=== PATIENT | female | born 1945 | race Caucasian/White ===

== ENCOUNTER 2023-04-13 08:27 | Emergency (ER) | payer MEDICARE, SELFPAY ==
[2023-04-13] VITALS (11 sets, daily range): BP systolic 138–211; BP diastolic 50–87; PULSE 49–73; RESP 11–16; TEMP 36.6–37.1; O2SAT 98–100
--- NOTE | ~2023-04-13 | CT_ITS ---
EXAMINATION: CTA brain carotid DATE: 04/13/2023 10:31 INDICATION: Left arm and hand numbness. TECHNIQUE: Computed tomographic angiography (CTA) of the head was performed without and with 200 mL O mnipaque-350 intravenous contrast. CTA of the neck was performed with intravenous contrast. Automated exposure control and iterative reconstruction technique were employed. The dose-length product was 2 576.16 mGy-cm. Maximum intensity projection and volume rendered 3D-reconstructions were created by anjel sparrow technologist on a separate workstation. COMPARISON: None. FINDINGS: HEAD CTA: There is no intracranial hemorrhage, acute infarction, or abnormal intracranial mass lesion . There are scattered areas of low attenuation in the cerebral white matter, which is within normal l imits for the patient's age. The ventricles are normal in size. The orbits are normal. There is mild mucosal thickening in the paranasal sinuses. The mastoid air cells are normal. The vertebral arteries are codominant. There is no significant stenosis of basilar artery or the posterior cerebral arterie s. There is no significant stenosis of the intracranial internal carotid arteries or anterior or midd le cerebral arteries. Anterior communicating artery is normal. The posterior communicating arteries a re normal. There is no aneurysm. NECK CTA: Calcified right lung nodules and calcified right hilar lymph nodes are consistent with old granulomatous disease. There is no significant stenosis of the vertebral arteries. There is minimal p laque in the proximal internal carotid arteries. There is 0% stenosis of the proximal right internal carotid artery relative to normal distal artery lumen diameter (NASCET criteria). There is 0% stenos is of the proximal left internal carotid artery relative to normal distal artery lumen diameter. Ther e is severe cervical spondylosis. IMPRESSION: 1. Normal aging brain. 2. No aneurysm or significant intracranial arterial stenosis. 3. 0% stenosis of the proximal internal carotid arteries relative to normal distal artery lumen diame ters (NASCET criteria). Reviewed, dictated and finalized at location A. ION ATTENDANT IMPRESSION: 1. Normal aging brain. 2. No aneurysm or significant intracranial arterial stenosis. 3. 0% stenosis of the proximal internal carotid arteries relative to normal dis jeffry artery lumen diameters (NASCET criteria).
--- NOTE | 2023-04-13 08:35 | ECG_ITS ---
Measurements Intervals [place] Rate: 48 P: 43 ID: [id number] QRS: -6 QRSD: 109 T: 3 QT: 445 QTc: 400 Interpretive Statements SINUS BRADYCARDIA INCOMPLETE RIGHT BUNDLE BRANCH BLOCK [90+ ms QRS DURATION, TERMINAL R IN V1/V2, 40+ ms S IN I/aVL/V4/V5/V6] POOR R WAVE PROGRESSION NO PREVIOUS ECG AVAILABLE FOR COMPARISON Electronically Signed On 04-13-2023 12:43:27 RN WOUND CARE by Bethany Storm M.D.
[2023-04-13 09:10] LABS: Basophils Absolute Auto 0.1 K/mm3 (0.0-0.1); Basophils Percent Auto 1.2 % (0.2-1.2); Eosinophils Absolute Auto 0.2 K/mm3 (0-0.3); Eosinophils Percent Auto 2.3 % (0-4.4); Hematocrit 44.8 % (37.0-47.0); Hemoglobin 14.1 g/dL (12.0-15.0); Immature Granulocyte Absolute 0.01 K/mm3 (0.00-0.031); Immature Granulocyte Percent A 0.2 % (0-0.5); Lymphocytes Percent Auto 24.7 % (18.3-44.2); Mean Corpuscular HGB Conc 31.5 g/dl (32-36); Mean Corpuscular Hemoglobin 27.4 pg (26-34); Monocytes Absolute Auto 0.6 K/mm3 (0.1-0.6); Monocytes Percent Auto 9.9 % (2.6-8.5); Neutrophils Percent Auto 61.7 % (45.5-73.1); Platelet Count Result 309 k/mm3 (150-375); Red Blood Count 5.15 M/mm3 (4.2-5.4); Red Cell Distribution Width 12.7 % (11.5-14.5); White Blood Count 6.5 K/mm3 (4.5-10.0)
[2023-04-13 09:20] LABS: INR 0.9; Prothrombin Time 12.7 Seconds (11.1-14.7)
[2023-04-13 09:21] LABS: Partial Thromboplastin Time 31.6 SECONDS (22.3-36.8)
[2023-04-13 09:38] LABS: Alanine Aminotransferase 14 U/L (6-35); Albumin Level 3.9 g/dL (3.5-5.1); Alkaline Phosphatase 53 U/L (38-126); Anion Gap 6 mmol/L (8-16); Aspartate Amino Transferase 23 U/L (14-36); Bilirubin,Total 0.5 mg/dL (0.2-1.3); Blood Urea Nitrogen 20 mg/dL (7-17); Calcium 9.1 mg/dL (8.4-10.2); Carbon Dioxide 25 mmol/L (22-30); Chloride 111 mmol/L (98-107); Estimated Glomerular Filt Rate > 60; Glucose 107 mg/dL (65-110); Potassium 3.7 mmol/L (3.4-5.0); Sodium 142 mmol/L (137-145)
--- NOTE | 2023-04-13 09:55 | PC.NURSE ---
Chemistry called informing of new orders to add onto specimens collected.
[2023-04-13 10:19] LABS: Troponin I < 0.012 ng/mL (0.000-0.034)
--- NOTE | 2023-04-13 10:35 | ECG_ITS ---
Measurements Intervals [place] Rate: 68 P: 48 AL: 166 QRS: -21 QRSD: 121 T: 74 QT: 438 QTc: 466 Interpretive Statements SINUS RHYTHM LEFTWARD AXIS INTRAVENTRICULAR CONDUCTION DELAY ABNORMAL ECG COMPARED TO ECG 04/13/2023 08:42:01 NO SIGNIFICANT CHANGE Electronically Signed On 04-13-2023 15:38:01 RN SURGICAL PCU by Evgeny Yates M.D.
[2023-04-13] MEDS: ONDANSETRON INJ 4 MG/2 ML VIAL IV PUSH (10:40)
[2023-04-13] MEDS: SODIUM CHLORIDE 0.9% IV 1,000 ML 999 ML IV CONT (10:49)
--- NOTE | 2023-04-13 10:52 | ED.NEUROSD ---
HPI - Neuro Symptoms/Deficit General Chief Complaint: Neuro Symptoms/Deficit Stated Complaint: N L arm and face x 1 day Time Seen by Provider: 04/13/23 09:01 Source: patient Mode of arrival: ambulatory Limitations: no limitations History of Present Illness HPI Narrative: Patient is a 77-year-old female who presents the ED with report of paresthesias. Patient reports having an intermittent paresthesias of her left arm and left hand for the last 1 month. She states the paresthesias became more prominent over the last 2 days. She contacted her primary care doctor today and was referred to the ED for further evaluation. Upon further questioning, patient reports the symptoms have actually been ongoing for the last 1 year. Symptoms occasionally involves her right arm and her lower extremities bilaterally. Patient states she otherwise has not felt well for at least the last 1 month. Reports feeling increasingly fatigued, generalized weakness. Denies any focal weakness. Denies numbness. Denies extremity pain. Denies chest pain, shortness breath, vision changes, headache, nausea, vomiting, urinary complaints. Related Data Allergies Allergy/AdvReac Type Severity Reaction Status Date / Time Cephalosporins Allergy Mild Unknown Verified 04/13/23 08:55 cephalexin Allergy Unknown Unknown Verified 04/13/23 08:55 penicillin G Allergy Unknown UNknown Verified 04/13/23 08:55 clarithromycin AdvReac Unknown Unknown Verified 04/13/23 08:55 lisinopril AdvReac Unknown Unknown Verified 04/13/23 08:55 pravastatin AdvReac Unknown Unknown Verified 04/13/23 08:55 Review of Systems Review of Systems: CONSTITUTIONAL: Denies fever, chills, or sweats. ENT: Denies vision changes. CARDIOVASCULAR: Denies chest pain. RESPIRATORY: Denies dyspnea. GASTROINTESTINAL: Denies abdominal pain, nausea, vomiting MUSCULOSKELETAL: Denies back pain, extremity pain, myalgia. NEUROLOGIC: See HPI. All systems reviewed & are unremarkable except as noted in HPI and below PMFSH Surgical History Surgical History History of hysterectomy with oophorectomy 1998 History of vaginal surgery Transvaginal taping 1998 Family History Family History Father Acute myocardial infarction Diabetes mellitus Heart disease Other Breast cancer Sibling Carcinoma of colon Grandparent Cerebrovascular accident Other Depression Diabetes mellitus Mother Hypertension Other Asthma Social History Social History Smoking status: Never smoker Second hand tobacco smoke exposure: Yes Alcohol intake: never Substance use: never Substance use type: does not use Lack of Transportation: YES Lack of Food: Often True Current Housing: I Have Housing Concerned About Future Housing: No Difficulty Paying Gas/Electric Bills: YES Difficulty Paying for Meds: YES Currently Unemployed: No Education: Associate Degree Difficulty w/ Childcare or Family Care: No Living arrangements: with family Occupation/Education: retired Gender identity (if verbalized by the patient): Female Sexual Orientation (if Verbalized by the Patient): Straight or Heterosexual Spiritual care concerns: No Agree to blood products: Yes Exam Narrative: GENERAL: Elderly, thin, frail, non-toxic, in no acute distress. HEAD: Normocephalic, atraumatic. EYES: PERRL/EOMI, conjunctivae clear bilaterally. No nystagmus. NECK: Supple. No meningeal signs. RESPIRATORY: Airway patent, respirations nonlabored. Clear to auscultation bilaterally, no rales, rhonchi, wheezing. CARDIOVASCULAR: Regular rate and rhythm without murmurs, rubs, or gallops. Peripheral pulses 2+ and equal bilaterally. MUSCULOSKELETAL: Moves all extremities. No gross deformities. No pain or tenderness appreciated throughout extremities. SKIN: W
--- NOTE | 2023-04-13 10:54 | PC.NURSE ---
10:30 - RN called to room. Pt clutching chest stating she doesn't feel well. Pt denies chest pain, c/o h/a after CT. States Even my teeth hurt Naty MARINO informed & came to bedside to assess. EKG taken & reassurance given to pt & family.
[2023-04-13 11:07] LABS: Appearance Urine Clear (Clear); Bacteria Urine None Seen /hpf; Bilirubin Urine Negative (Negative); Blood Urine Trace (Negative); Color Urine Yellow (Yellow); Glucose Urine UA Negative (Negative); Ketones Urine Negative (Negative); Leukocyte Esterase Ur 1+ LEU/UL (Negative); Nitrate Urine Negative (Negative); Non Pathogenic Casts 0-2; Protein Urine Negative (Negative); Squamous Epithelial Cell Urine Few /hpf (Few); Urobilinogen Urine 0.2 mg/dL (<2.0); pH Urine 5.5 (5.0-9.0)
[2023-04-13 11:08] LABS: Add Urine Microscopic? YES; Specific Grav Ur 1.054 (1.001-1.035)
--- NOTE | 2023-04-13 12:21 | PC.NURSE ---
Pt states h/a improved. Resting with reg resp on stretcher
== END 2023-04-13 12:53 | disposition home or self-care (01) ==
PROVIDERS: Emergency Medicine; Emergency Provider Physician Assistant; PCP Family Medicine Adolescent Medicine
DX: R20.2 Paresthesia of skin (principal); R82.998 Other abnormal findings in urine; Z90.710 Acquired absence of both cervix and uterus; R00.1 Bradycardia, unspecified; I45.10 Unspecified right bundle-branch block; I45.9 Conduction disorder, unspecified
CPT/HCPCS: 36415; 70496; 70498; 80053; 81001; 84484; 85025; 85610; 85730; 87086; 87181; 93005; 96361; 96374; 99284; J2405; J7030; Q9967

== ENCOUNTER 2023-09-11 10:29 | Outpatient (CLI) | payer MEDICARE, SELFPAY ==
[2023-09-11 10:59] LABS: Basophils Absolute Auto 0.1 K/mm3 (0.0-0.1); Basophils Percent Auto 1.1 % (0.2-1.2); Eosinophils Absolute Auto 0.2 K/mm3 (0-0.3); Eosinophils Percent Auto 3.8 % (0-4.4); Hematocrit 40.9 % (37.0-47.0); Hemoglobin 13.6 g/dL (12.0-15.0); Immature Granulocyte Absolute 0.01 K/mm3 (0.00-0.031); Immature Granulocyte Percent A 0.2 % (0-0.5); Lymphocytes Percent Auto 28.6 % (18.3-44.2); Mean Corpuscular HGB Conc 33.3 g/dl (32-36); Mean Corpuscular Hemoglobin 28.9 pg (26-34); Mean Platelet Volume 9.4 fl (7.4-10.4); Monocytes Absolute Auto 0.7 K/mm3 (0.1-0.6); Monocytes Percent Auto 11.3 % (2.6-8.5); Neutrophils Absolute Auto 3.5 K/mm3 (1.3-6.7); Platelet Count Result 281 k/mm3 (150-375); Red Cell Distribution Width 12.9 % (11.5-14.5); White Blood Count 6.3 K/mm3 (4.5-10.0)
[2023-09-11 11:13] LABS: Alanine Aminotransferase 15 U/L (6-35); Albumin Level 4.3 g/dL (3.5-5.1); Alkaline Phosphatase 55 U/L (38-126); Anion Gap 8 mmol/L (4-12); Aspartate Amino Transferase 26 U/L (14-36); Bilirubin,Total 0.6 mg/dL (0.2-1.3); Blood Urea Nitrogen 22 mg/dL (7-17); Carbon Dioxide 27 mmol/L (22-30); Chloride 104 mmol/L (98-107); Estimated Glomerular Filt Rate > 60; Glucose 96 mg/dL (65-110); Potassium 4.2 mmol/L (3.4-5.0); Sodium 139 mmol/L (137-145)
[2023-09-11 11:25] LABS: Hemoglobin A1C 5.6 % (<5.7)
[2023-09-14 19:48] LABS: Immunofixation, Serum Normal pattern.
[2023-09-15 01:59] LABS: Red Blood Cell Folate 519 ng/mL RBC (>280)
[2023-09-15 09:13] LABS: Methylmalonic Acid 112 nmol/L (85-423)
[2023-09-16 00:09] LABS: Vitamin B6 35.4 ng/mL (2.1-21.7)
[2023-09-17 14:54] LABS: Vitamin D 1,25 (OH)2 Total 31 pg/mL (18-72); Vitamin D2 1,25 (OH)2 <8 pg/mL; Vitamin D3 1,25 (OH)2 31 pg/mL
== END 2023-09-11 10:30 | disposition home or self-care (01) ==
PROVIDERS: PCP Family Medicine Adolescent Medicine; Visit Provider Psychiatry & Neurology Neurology
DX: M54.50 Low back pain, unspecified (principal); M54.2 Cervicalgia; G56.03 Carpal tunnel syndrome, bilateral upper limbs; G62.9 Polyneuropathy, unspecified; Z13.1 Encounter for screening for diabetes mellitus; E55.9 Vitamin D deficiency, unspecified
CPT/HCPCS: 36415; 80053; 82607; 82652; 82747; 83036; 83921; 84207; 84425; 85025; 86038; 86039; 86334

== ENCOUNTER 2023-09-25 11:30 | Outpatient (CLI) | payer MEDICARE, SELFPAY | END 2023-09-25 11:31 | disposition home or self-care (01) | LOC: ANHLAB 11:34 | PROVIDERS: PCP Family Medicine Adolescent Medicine; Visit Provider Family Medicine Adolescent Medicine | DX: F33.0 Major depressive disorder, recurrent, mild (principal); K14.6 Glossodynia; G62.9 Polyneuropathy, unspecified | CPT/HCPCS: 36415; 84443 ==

== ENCOUNTER 2023-10-06 13:20 | Outpatient (CLI) | payer MEDICARE, SELFPAY ==
--- NOTE | 2023-10-06 14:30 | NEURO_ITS ---
Impression: # Complains of numbness of feet. # Sensory neuropathy. # Needle/EMG exam with decreased motor unit potentials in bilateral EDB. # Clinical correlation recommended. Nerve Conduction Studies Anti Sensory Summary Table Stim Site NR Peak (ms) P-T Amp (?V) Site1 Site2 Delta-P (ms) Dist (cm) Srikanth (m/s) Left Sup Fibular Anti Sensory (Ant Lat Mall) NO RESPONSE 14 cm NR 14 cm Ant Lat Mall 16.0 Right Sup Fibular Anti Sensory (Ant Lat Mall) 14 cm 3.5 37.9 14 cm Ant Lat Mall 3.5 16.0 46 Left Sural Anti Sensory (Lat Mall) NO RESPONSE Calf NR Calf Lat Mall 16.0 Right Sural Anti Sensory (Lat Mall) NO RESPONSE Calf NR Calf Lat Mall 16.0 Motor Summary Table Stim Site NR Onset (ms) O-P Amp (mV) Site1 Site2 Delta-0 (ms) Dist (cm) Srikanth (m/s) Left Peroneal Motor (Vastus Med) Ankle 3.8 1.4 Popit Ankle 7.1 35.0 49 Popit 10.9 1.4 Right Peroneal Motor (Vastus Med) Ankle 3.5 0.8 Popit Ankle 7.6 37.0 49 Popit 11.1 0.7 Left Tibial Motor (Abd Wood Brev) Ankle 4.3 5.4 Knee Ankle 7.9 38.0 48 Knee 12.2 4.9 Right Tibial Motor (Abd Wood Brev) Ankle 3.8 0.5 Knee Ankle 8.5 37.0 44 Knee 12.3 1.4 F Wave Studies NR F-Lat (ms) L-R F-Lat (ms) Left Peroneal (Mrkrs) (EDB) 50.53 1.17 Right Peroneal (Mrkrs) (EDB) 49.36 1.17 Left Tibial (Mrkrs) (Abd Hallucis) 52.05 1.87 Right Tibial (Mrkrs) (Abd Hallucis) 50.18 1.87 EMG Side Muscle Nerve Root Ins Act Fibs Amp Dur Recrt Comment Right AntTibialis Dp Br Fibular L4-5 Nml Nml Nml Nml Nml Right Gastroc Tibial S1-2 Nml Nml Nml Nml Nml Right Fibularis Long Sup Br Fibular L5-S1 Nml Nml Nml Nml Nml Right Flex Dig Long Tibial L5-S2 Nml Nml Nml Nml Nml Right Ext Dig Brev Dp Br Fibular L5, S1 Nml Nml Nml >12ms +1 Right QuadratusFem QuadFemoris L4-5, S1 Nml Nml Nml Nml Nml Left AntTibialis Dp Br Fibular L4-5 Nml Nml Nml Nml Nml Left Gastroc Tibial S1-2 Nml Nml Nml Nml Nml Left Fibularis Long Sup Br Fibular L5-S1 Nml Nml Nml Nml Nml Left Flex Dig Long Tibial L5-S2 Nml Nml Nml Nml Nml Left Ext Dig Brev Dp Br Fibular L5, S1 Nml Nml Nml >12ms +1 Left QuadratusFem QuadFemoris L4-5, S1 Nml Nml Nml Nml Nml MTDD
== END 2023-10-06 13:21 | disposition home or self-care (01) ==
LOC: ANHNEURO 13:21
PROVIDERS: PCP Family Medicine Adolescent Medicine; Visit Provider Psychiatry & Neurology Neurology
DX: G56.03 Carpal tunnel syndrome, bilateral upper limbs (principal); G62.9 Polyneuropathy, unspecified; M54.2 Cervicalgia; M54.50 Low back pain, unspecified
CPT/HCPCS: 95886; 95910

== ENCOUNTER 2023-12-16 16:01 | Outpatient (CLI) | payer MEDICARE, SELFPAY | END 2023-12-16 16:02 | disposition home or self-care (01) | PROVIDERS: PCP Family Medicine Adolescent Medicine; Visit Provider Family Medicine Adolescent Medicine | DX: R30.0 Dysuria (principal) | CPT/HCPCS: 87086 ==

== ENCOUNTER 2024-10-08 22:04 | Emergency (ER) | payer MEDICARE, SELFPAY ==
--- OUTSIDE RECORDS SUMMARY | 2024-10-08 15:45 | XMS_ITS | Encounter Summary ---
Author Organization [facility] Healthcare Address [address] [place] [address] Care Team Providers Care Door Assembler Name Role Phone Efrain Castro MD Primary Care Prov ider Reason for Visit * Reason Comments Sinus Problem Sinus symptoms in fa ce, left ear pain. Shooting pain in quaker. 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 Gender Identity Not on file Sexual Orientation Not on file documented as of this encounter Last Filed Vital Signs Vital Sign Reading Time Taken Comments Blood Pressure 144/85 10/08/2024 2:30 PM CDT Pulse 90 10/08/2024 2:30 PM CDT Temperature 36.4 C (97.6 F) 10/08/2024 2:30 PM CDT Respiratory Rate 20 10/08/2024 2:30 PM CDT Oxygen Saturation 97% 10/08/2024 2:30 PM CDT Inhaled Oxygen Concentration - - Weight 56.2 kg (124 lb) 10/08/2024 2:30 PM CDT Height - - Body Mass Index - - documented in this encounter Patient Instructions * Attachments The following attachments cannot be sent through Care Everywhere. * Sinusitis (Administrative Specialist) (Lao) documented in this encounter Ordered Prescriptions Prescription Sig Dispense Quantity Refills Last Filled Start Date End Date amoxicillin-clavul anate (AUGMENTIN) 875-125 mg per tabletIndications: Acute maxillary sinusitis, recurrence not specified Take 1 tablet by mouth 2 (two) times a day for 7 days 14 tablet 10/08/2024 10/15/2024 doxycycline (VIBRAMYCIN) 100 mg capsule Take 1 tablet/capsu le (100 mg total) by mouth 2 (two) times a day for 7 days 14 tablet/capsule 10/08/2024 10/08/2024 documented in this encounter Progress Notes * Edmundo Rivas NP - 10/08/2024 3:45 PM CDT Images from the original note were not included. Subjective/Objective Patient ID: Rebeka Gomez is a 79 y.o. female. This patient has verbally consented to recording this visit in order to utilize AI technology in generating this note. Chief Complaint Sinus Problem (Sinus symptoms in face, left ear pain. Shooting pain in quaker. 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 /) History of Present Illness Rebeka Gomez is an 79 year old female who presents with worsening sinus and ear symptoms. She has chronic sinus symptoms that have worsened over the past three weeks, accompanied by frequent chills without confirmed fever. She uses Flonase nasal spray once daily. She experiences burning mouth syndrome, and she was previously diagnosed with, which she feels is extending into her nose. She has previously taken amoxicillin without issues, despite a listed allergy to penicillin and cephalosporins. Documented prescription for amoxicillin from May 2024. Patient states she took it without reaction. Review of Systems All other systems reviewed and are negative. Physical Exam HEENT: Ears normal. Left maxillary sinus tenderness. Physical Exam Vitals and nursing note reviewed. Constitutional: General: She is awake. She is not in acute distress. Appearance: Normal appearance. HENT: Head: Normocephalic and atraumatic. Right Ear: Tympanic membrane and ear canal normal. Left Ear: Tympanic membrane and ear canal normal. Nose: Congestion and rhinorrhea present. Right Sinus: No maxillary sinus tenderness or frontal sinus tenderness. Left Sinus: Maxillary sinus tenderness and frontal sinus tenderness present. Mouth/Throat: Lips: [place]. Mouth: Mucous membranes are moist. Tongue: Tongue does not deviate from midline. Pharynx: Uvula midline. No pharyngeal swelling, oropharyngeal exudate, posterior oropharyngeal erythema or uvula swelling. Tonsils: No tonsillar exudate or tonsillar abscesses. Eyes: General: Lids are normal. Pupils: Pupils are equal, round, and reactive to light. Cardiovascular: Rate and Rhythm: Normal rate and regular rhythm. Pulses: Normal pulses. Heart sounds: Normal heart sounds. Pulmonary: Effort: Pulmonary effort is normal. No respiratory distress. Breath sounds: Normal breath sounds. No decreased breath sounds, wheezing, rhonchi or rales. Musculoskeletal: Cervical back: Full passive range of motion without pain, normal range of motion and neck supple. Lymphadenopathy: Cervical: No cervical adenopathy. Skin: General: Skin is warm and dry. Neurological: Mental Status: She is alert and oriented to person, place, and time. Gait: Gait normal. Psychiatric: Behavior: Behavior is cooperative. Vitals: 10/08/24 1430 BP: 144/85 Pulse: 90 Resp: 20 Temp: 36.4 ??C (97.6 ??F) TempSrc: Continuous Temporal Temperature SpO2: 97% Weight: 56.2 kg (124 lb) No results found. No past medical history on file. Current Outpatient Medications: albuterol HFA (PROVENTIL HFA,VENTOLIN HFA,PROAIR HFA) 90 mcg/actuation inhaler, Q4H, Disp: , Rfl: atenoloL (TENORMIN) 50 mg tablet, Take 1.5 tablets (75 mg total) by mouth daily, Disp: , Rfl: clonazePAM (KlonoPIN) 0.5 mg tablet, TAKE ONE-HALF TO ONE TABLET BY MOUTH 30 MINUTES BEFORE BEDTIME. DO NOT COMBINE WITH LORAZEPAM, Disp: , Rfl: escitalopram (LEXAPRO) 10 mg tablet, Take 1 tablet (10 mg total) by mouth daily, Disp: , Rfl: fluticasone propionate (FLONASE) 50 mcg/actuation nasal spray, , Disp: , Rfl: gabapentin (NEURONTIN) 300 mg capsule, Take 1 capsule (300 mg total) by mouth 3 (three) times a day, Disp: , Rfl: LORazepam (ATIVAN) 0.5 mg tablet, Take by mouth 3 (three) times a day as needed, Disp: , Rfl: amoxicillin-clavulanate (AUGMENTIN) 875-125 mg per tablet, Take 1 tablet by mouth 2 (two) times a day for 7 days, Disp: 14 tablet, Rfl: 0 levoFLOXacin (LEVAQUIN) 500 mg tablet, Take 1 tablet (500 mg total) by mouth daily (Patient not taking: Reported on 10/08/2024), Disp: , Rfl: Allergies Allergen Reactions Clarithromycin Unknown Lisinopril Unknown Pravastatin Unknown Cephalosporins Unknown Social History Tobacco Use Smoking status: Not on file Smokeless tobacco: Not on file Substance and Sexual Activity Drug use: Not on file Sexual activity: Not on file Alcohol Use: Not on file No past surgical history on file. Procedures Assessment/Plan 1. Acute maxillary sinusitis, recurrence not specified (Primary) - amoxicillin-clavulanate (AUGMENTIN) 875-125 mg per tablet; Take 1 tablet by mouth 2 (two) times aday for 7 days Dispense: 14 tablet; Refill: 0 Results Assessment & Plan Acute left maxillary sinusitis Chronic sinus symptoms exacerbated over three weeks with left maxillary sinus pain. Differential includes sinus infection. Allergies noted, but amoxicillin tolerated previously. - Prescribed amoxicillin for sinusitis. - Informed of potential adverse reactions to amoxicillin, including gastrointestinal upset, and advised to report any reactions. If you have any reaction stopped taking the medication and call us. You may also take a Benadryl if you have reaction to medicine or call 911 if needed - Advised follow-up with primary doctor if no symptom improvement in a few days. Education Sinus Infection -Take and finish your antibiotic prescription as directed. -You may try: Nasal saline wash, either Neti Pot or Sinus Rinse DAILY or a saline nasal spray 3-4 times a day. Guaifenesin expectorants (Maximum Strength Mucinex, Robitussin, store brand) to loosen secretions. For cough you can use dextromethorphan (Delsym syrup, Robitussin cough capsules or store brand). Dextromethorphan is considered safe for and breast feeding women. You may try decongestants such as Sudafed (purchase at pharmacy) or Sudafed PE for congestion relief. Decongestants can keep you awake at night. Do not use decongestants if you have high blood pressure or if you are . If you have high blood pressure you can take otc Coricidin per package directions -Increase fluid intake: drink 2 liters (2 quarts) of non-caffeinated, non- alcoholic beverages daily, drinking alcohol causes nasal and sinus membranes to swell -Steam inhalation and warm compress to face often help relieve pressure -Avoid allergens and excessively dry heat -Sleep with head of bed elevated to encourage drainage. -Use of a humidifier if environment is heated by dry forced - air system -Avoid smoking, second-hand smoke and air pollutants. -If you are not improving or worsening, or develop facial swelling, in the next 3-5 days you must RETURN to the clinic, go to your PCP, or Urgent Care/ER to be SEEN and reevaluated. No further prescriptions or refills will be given by phone without another evaluation. Disposition Treatment plan including expectations, follow up, and return precautions discussed with patient/parent, verbalizes understanding. Medication dosage, use, and potential adverse reactions discussed with patient/parent. Advised to follow up with PCP if symptoms do not resolve as expected or sooner if condition worsens. Signs/symptoms warranting ER evaluation reviewed. Patient and/or guardian was given an opportunity to ask questions, questions answered. Edmundo Rivas NP This office note has been partially dictated using [employer] software, and as a result portions of the record may have been created with this software. Occasional wrong-word or '[id number]' substitutions may have occurred due to the inherent limitations of voice recognition software. Read the chartcarefully and recognize, using context, where substitutions have occurred. documented in this encounter Plan of Treatment Not on file documented as of this encounter Visit Diagnoses Diagnosis Acute maxillary sinusitis, recurrence not specified- Primary documented in this encounter Discontinued Medications Medication Sig Discontinue Reason Start Date End Da te doxycycline (VIBRAMYCIN) 100 mg capsule Take 1 tablet/capsule (100 mg total) by mouth 2 (two) times a day for 7 days Therapy completed 10/08/2024 10/08/2024 documented as of this encounter Historical Medications * This list may reflect changes made after this encounter. levoFLOXacin (LEVAQUIN) 500 mg tablet Take 1 tablet (500 mg total) by mouth daily 07/14/2024 escitalopram (LEXAPRO) 10 mg tablet Take 1 tablet (10 mg total) by mouth daily 06/28/2024 albuterol HFA (PROVENTIL HFA,VENTOLIN HFA,PROAIR HFA) 90 mcg/actuation inhaler Q4H 07/17/2022 added in this encounter Care Teams Door Assembler Relationship Specialty Start Date End Date Efrain Castro MD [address] [place] [address] PCP - General Family Medicine 05/06/21 documented as of this encounter
--- OUTSIDE RECORDS SUMMARY | 2024-10-08 15:45 | XMS_ITS | Encounter Summary ---
Author Organization [facility] Healthcare Address [address] [place] [address] Care Team Providers Care Change Control Analyst Name Role Phone Efrain Castro MD Primary Care Prov ider Reason for Visit * Reason Comments Sinus Problem Sinus symptoms in fa ce, left ear pain. Shooting pain in mandaeism. 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 * Sinusitis (Manager Continuous Improvement) (Kazakh) documented in this encounter Ordered Prescriptions Prescription [...] face, left ear pain. Shooting pain in mandaeism. Symptoms x 3 weeks /Burning mouth syndrome- [...] and frontal sinus tenderness present. Mouth/Throat: Lips: [place]. Mouth: Mucous membranes are moist. Tongue: Tongue [...] office note has been partially dictated using [employer] software, and as a result portions of the record may have been created with this software. Occasional wrong-word or '[id number]' substitutions may have occurred due to the [...] 07/17/2022 added in this encounter Care Teams Change Control Analyst Relationship Specialty Start Date End Date Efrain Castro MD [address] [place] [address] PCP - General Family Medicine 05/06/21 documented as of this encounter
--- OUTSIDE RECORDS SUMMARY | 2024-10-08 22:07 | XMS_ITS | Clinical Summary ---
Author Organization [facility] Address [address] [place] [id number] Care Team Providers Care Torch Burner Name Role Phone Efrain Castro MD Primary Care Prov ider Allergies Active Allergy Reactions Criticality Noted Date Comments Cephalosporins Unknown Low 04/13/2023 Clarithromycin Unknown 04/13/2023 Lisinopril Unknown 04/13/2023 Pravastatin Unknown 04/13/2023 Medications atenoloL (TENORMIN) 50 mg tablet Take 1.5 tablets (75 mg total) by mouth daily 5 Active clonazePAM (KlonoPIN) 0.5 mg tablet TAKE ONE-HALF TO ONE TABLET BY MOUTH 30 MINUTES BEFORE BEDTIME. DO NOT COMBINE WITH LORAZEPAM 5 Active gabapentin (NEURONTIN) 300 mg capsule Take 1 capsule (300 mg total) by mouth 3 (three) times a day 5 Active LORazepam (ATIVAN) 0.5 mg tablet Take by mouth 3 (three) times a day as needed 5 Active fluticasone propionate (FLONASE) 50 mcg/actuation nasal spray 5 Active albuterol HFA (PROVENTIL HFA,VENTOLIN HFA,PROAIR HFA) 90 mcg/actuation inhaler Q4H 3 Active escitalopram (LEXAPRO) 10 mg tablet Take 1 tablet (10 mg total) by mouth daily 5 Active levoFLOXacin (LEVAQUIN) 500 mg tablet Take 1 tablet (500 mg total) by mouth daily 5 Active amoxicillin-cla vulanate (AUGMENTIN) 875-125 mg per tabletIndicatio ns:Acute maxillary sinusitis, recurrence not specified Take 1 tablet by mouth 2 (two) times a day for 7 days 14 tablet 5 10/16/19 25 Active doxycycline (VIBRAMYCIN) 100 mg capsule Take 1 tablet/capsul e (100 mg total) by mouth 2 (two) times a day for 7 days 14 tablet/capsu le 5 10/09/19 25 Discontinu ed(Therapy completed) Active Problems Problem Noted Date Diagnosed Date Abnormal weight loss 10/08/2024 Anxiety disorder, unspecified 10/08/2024 Arm paresthesia, left 10/08/2024 Hand paresthesia 10/08/2024 Essential (primary) hypertension 10/08/2024 Gastro-esophageal reflux disease without esophag itis 10/08/2024 Major depressive disorder, recurrent, mild 10/08 Mild intermittent asthma, uncomplicated 10/09/19 Muscle cramp, nocturnal 10/08/2024 Neuralgia 10/08/2024 Other fatigue 10/08/2024 Palpitations 10/08/2024 Pure hypercholesterolemia, unspecified Encounters Date Type Department Care Team Description 10/08/2024 3:45 PM CDT Office Visit [facility] at [address] [phone] Edmundo Rivas NP Acute maxillary sinusitis, recurrence not specified (Primary Dx) from Last 3 Months Immunizations Immunization Administration Dates Next Due Pneumococcal Polysaccharide PPV23 04/02/2012 Social History Tobacco Use Types Packs/Day Years Used Date Smoking Tobacco: Never Assessed Comments Unknown Sex and Gender Information Value Date Recorded Sex Assigned at Not on file 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 Gender Identity Not on file Sexual Orientation Not on file Obstetrics History Last Filed Vital Signs Vital Sign Reading [...] - - Body Mass Index - - Plan of Treatment Health Maintenance Due Date Last Done Comments Depression Screening 1945 Fall Risk Assessment 1945 Osteoporosis Screening-Bone Density Scan 1945 DTaP/Tdap/Td Vaccine (1 - Tdap) 04/28/1954 Hepatitis B Screening 04/28/1961 Zoster Vaccine (1 of 2) 04/28/1993 Well Visit 65+ 04/28/2008 Pneumococcal vaccine 65+ (2 of 2 - PCV) 04/02/2013 0 04/02/2012 Covid-19 Vaccine (3 - 2023- season) 2023, 11/27/2020 Influenza Vaccine (#1) [address] [place] [address] [employer] P[employer] P[employer] Care Teams Torch Burner Relationship Specialty Start Date End Date Efrain Castro MD [address] [place] [address] PCP - General Family Medicine 05/06/21
[2024-10-08 22:09] VITALS: BP 148/53; PULSE 69; RESP 18; TEMP 36.3; O2SAT 100
[2024-10-08 23:06] VITALS: BP 151/63; PULSE 69; RESP 17; O2SAT 100
--- OUTSIDE RECORDS SUMMARY | 2024-10-08 23:22 | XMS_ITS | Clinical Summary ---
Author Organization [facility] Address [address] [place] [id number] Care Team Providers Care Director Of Cardiology Name Role Phone Efrain Castro MD Primary [...] Description 10/08/2024 3:45 PM CDT Office Visit [facility] at [address] [phone] Edmundo Rivas NP Acute maxillary sinusitis, recurrence not specified (Primary Dx) from Last 3 Months Immunizations Immunization Administration Dates Next Due Pneumococcal Polysaccharide PPV23 04/02/2012 Social History Tobacco Use Types Packs/Day Years Used Date Smoking Tobacco: Never Assessed Comments Unknown Sex and Gender Information Value Date Recorded Sex Assigned at Not on file 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
--- NOTE | 2024-10-08 23:46 | ED_ITS ---
HPI - Nausea/Vomiting/Diarrhea General Chief complaint: Nausea/Vomiting/Diarrhea Stated complaint: N/V/D-on Augmentin-has sinus infection Time Seen by Provider: 10/08/24 23:00 History of Present Illness HPI Narrative: Patient is an 79-year-old female who presents to the ER with complaints nausea, vomiting, and upset stomach. She reports she has taken Augmentin in the past and had similar symptoms. Patient reports she went to urgent care earlier today because she was having sinus pain and sore throat. She reports the provider there put her on Augmentin. Patient reports she took her 1st pill this evening and had GI symptoms afterwards. She endorses diarrhea, vomiting, and bilateral upper abdominal pain. Patient endorses a history of neuropathy, high blood pressure, and asthma. Related Data Home Medications ?Medication ?Instructions ?Recorded ?Confirmed ?Last Taken ?Type THC/CBD cream topical 08/23/23 05/25/24 Un known History Allergies Allergy/AdvReac Type Severity Reaction Status Date / Time Cephalosporins Allergy Mild Unknown Verified 10/08/24 22:13 cephalexin Allergy Unknown Unknown Verified 10/08/24 22:13 penicillin G Allergy Unknown UNknown Verified 10/08/24 22:13 clarithromycin AdvReac Unknown Unknown Verified 10/08/24 22:13 lisinopril AdvReac Unknown Unknown Verified 10/08/24 22:13 pravastatin AdvReac Unknown Unknown Verified 10/08/24 22:13 Review of Systems 2 Review of Systems: All systems reviewed & are unremarkable except as noted in HPI and below PMFSH Past Medical History Medical History Fibromyalgia Lower back pain Neck pain Bilateral carpal tunnel syndrome Peripheral neuropathy Surgical History Surgical History History of vaginal surgery Transvaginal taping 1998 History of hysterectomy with oophorectomy 1998 Family History Family History Father Acute myocardial infarction Diabetes mellitus Heart disease Other Breast cancer Sibling Carcinoma of colon Grandparent Cerebrovascular accident Other Depression Diabetes mellitus Mother Hypertension Other Asthma Social History Social History Smoking status: Never smoker Second hand tobacco smoke exposure: Yes Alcohol intake: never Substance use: never Substance use type: does not use Do You Feel Safe in your Home?: Yes Lack of Transportation: YES Lack of Food: Sometimes True Current Housing: I Have Housing Concerned About Future Housing: No Difficulty Paying Gas/Electric Bills: No Difficulty Paying for Meds: No Currently Unemployed: No Education: High School Diploma/GED Difficulty w/ Childcare or Family Care: No Living arrangements: with family Occupation/Education: retired Gender identity (if verbalized by the patient): Female Sexual Orientation (if Verbalized by the Patient): Straight or Heterosexual Spiritual care concerns: No Agree to blood products: Yes Exam 2 Narrative: GENERAL: Well appearing, well-nourished, non-toxic, in no acute distress. HEAD: Normocephalic, atraumatic. NECK: Supple. No adenopathy, no masses. RESPIRATORY: Airway patent, respirations nonlabored. Clear to auscultation bilaterally, no rales, rhonchi, wheezing. CARDIOVASCULAR: Regular rate and rhythm without murmurs, rubs, or gallops. Peripheral pulses 2+ and equal bilaterally. ABDOMINAL: Soft, nontender, nondistended, no hepatosplenomegaly. Normoactive BS. MUSCULOSKELETAL: Moves all extremities. Strength/ROM intact without gross deformities. SKIN: Warm, dry, normal color. No rashes. NEURO: A&O X3. Speech clear. Cranial nerves II-XII intact. No ataxic movements. PSYCHIATRIC: Appropriate mood and affect. Normal interaction. Course Vital Signs Vital signs: Vital Signs Temperature 36.3 C L 10/08/24 22:09 Pulse Rate 69 10/08/24 22:09 Respiratory Rate 18 10/08/24 22:09 Blood Pressure 148/53 H 10/08/24 22:09 Pulse Oximetry 100 10/08/24 22:09 Oxygen Delivery Room Air 10/08/24 22:09 Temperature 36.3 C L 10/08/24 22:09 Pulse Rate 69 10/09/24 00:53 Respiratory Rate 15 10/09/24 00:53 Blood Pressure 151/63 H 10/09/24 00:53 Pulse Oximetry 100 10/09/24 00:53 Oxygen Delivery Room Air 10/08/24 22:09 MDM - Nausea/Vomiting/Diarrhea MDM Narrative Medical decision making narrative: Patient is an 79-year-old female who presents to the ER with complaints nausea, vomiting, and upset stomach. She reports she has taken Augmentin in the past and had similar symptoms. Patient reports she went to urgent care earlier today because she was having sinus pain and sore throat. She reports the provider there put her on Augmentin. Patient reports she took her 1st pill this evening and had GI symptoms afterwards. She endorses diarrhea, vomiting, and bilateral upper abdominal pain. Patient endorses a history of neuropathy, high blood pressure, and asthma. Labs Ordered: CBC, CMP, strep Imaging Ordered: None necessary Medications Ordered: Prednisone 40 mg p.o. Results: Patient's CMP and CBC results were within normal limits. Her strep swab was negative. Diagnosis: Viral sinus infection, mild dehydration, drug-induced nausea & vomiting Differential Diagnosis Differential diagnosis: Likely gastroenteritis, drug-induced nausea and vomiting, dehydration and other (Viral upper respiratory infection, viral sinus infection) Lab Data Attestation: I reviewed the patient's lab results. 10/09/24 00:05 10/09/24 00:06 Labs: Lab Results 10/09/24 10/09/24 10/09/24 Range/Units 00:05 00:06 00:23 WBC 16.1 H (4.5-10.0) K/mm3 RBC 4.91 (4.2-5.4) M/mm3 Hgb 13.4 (12.0-15.0) g/dL Hct 41.4 (37.0-47.0) % MCV 84.3 (80-100) fl MCH 27.3 (26-34) pg MCHC 32.4 (32-36) g/dl RDW 12.6 (11.5-14.5) % Plt Count 235 (150-375) k/mm3 MPV 9.5 (7.4-10.4) fl Immature Gran % (Auto) Not Reportable Neut % (Auto) Not Reportable Lymph % (Auto) Not Reportable [place] % (Auto) Not Reportable Eos % (Auto) Not Reportable Baso % (Auto) Not Reportable Lymph # (Auto) Not Reportable [place] # (Auto) Not Reportable Eos # (Auto) Not Reportable Baso # (Auto) Not Reportable Abs Immat Gran (auto) Not Reportable Absolute Neuts (auto) Not Reportable Absolute Nucleated RBC Not Reportable Total Counted 100 Neutrophils % (Manual) 77 H (46-73) % Band Neutrophils % 6 (0-6) % Lymphocytes % (Manual) 4.0 L (18-44) % Monocytes % (Manual) 13 H (3-9) % Nucleated RBC % Not Reportable Abs Neuts (Manual) 13.36 H (1.3-6.7) K/mm3 Abs Lymphs (Manual) 0.64 L (1.1-4.5) K/mm3 Abs Monocytes (Manual) 2.09 H (0.1-0.90) K/mm3 Atypical Lymphocytes Present Smudge Cells Present Platelet Estimate Adequate (Adequate) Clumped Platelets Present Ovalocytes Occasional Schistocytes None seen Sodium 139 (137-145) mmol/L Potassium 3.7 (3.4-5.0) mmol/L Chloride 105 (98-107) mmol/L Carbon Dioxide 29 (22-30) mmol/L Anion Gap 5 (4-12) mmol/L BUN 21 H (7-17) mg/dL Creatinine 0.82 (0.7-1.0) mg/dL Estim Creat Clear Calc 34 ml/min Estimated GFR > 60 (59 - ) Glucose 117 H (65-110) mg/dL Calcium 8.8 (8.4-10.2) mg/dL Total Bilirubin 0.6 (0.2-1.3) mg/dL AST 35 (14-36) U/L ALT 16 (6-35) U/L Alkaline Phosphatase 60 (38-126) U/L Total Protein 7.5 (6.3-8.2) g/dL Albumin 4.2 (3.5-5.1) g/dL Group A Strep (PCR) Not detected (Negative) Discharge Plan Discharge Clinical Impression: Dehydration, mild, Drug-induced nausea and vomiting, Acute viral sinusitis Patient Disposition: Home Condition: Stable Instructions: Antibiotic Form, Dehydration (ED), Sinusitis (ED), Acute Nausea and Vomiting (ED) Additional Instructions: Please return to the ER with any worsening symptoms. Follow-up with primary care provider as soon as possible. Take all medications as prescribed, including regularly scheduled medications. You may take prednisone and Flonase to help treat your sinusitis. Please remember to drink lots of water upon discharge. Patient Language: Syriac Prescriptions: New methylprednisolone [Medrol (Eitan)] 4 mg tablets,dose pack See Rx Instructions PO .COMPLEX Qty: 21 0RF Rx Instructions: for 6 days fluticasone propionate [Flonase Allergy Relief] 50 mcg/actuation spray,suspension 2 spray intranasal DAILY Qty: 16 0RF Rx Instructions: administer into each nostril ondansetron 4 mg tablet,disintegrating 4 mg PO Q8H Qty: 14 0RF No Action escitalopram oxalate 10 mg tablet 10 mg PO DAILY Qty: 30 5RF gabapentin 300 mg capsule 300 mg PO BID Qty: 90 5RF THC/CBD cream topical albuterol sulfate 90 mcg/actuation HFA aerosol inhaler 2 inh inhalation Q4H PRN (Reason: shortness of breath or wheezing) Qty: 6.7 3RF azelastine 0.05 % drops See Rx Instructions .ROUTE .COMPLEX Qty: 18 0RF Dose Instruction: INSTILL 1 DROP IN EACH EYE TWICE DAILY Rx Instructions: INSTILL 1 DROP IN EACH EYE TWICE DAILY fluticasone propionate 50 mcg/actuation spray,suspension 2 spray intranasal DAILY Qty: 16 5RF Rx Instructions: administer into each nostril clobetasol 0.05 % cream 1 applic topical BID Qty: 60 1RF atenolol 50 mg tablet 75 mg PO DAILY Qty: 135 1RF lorazepam 0.5 mg tablet 0.5 mg PO TID PRN (Reason: anxiety) Qty: 90 4RF Follow-up/Referrals: Efrain Castro MD [Primary Care Provider, Family Practice] Time of Disposition: 01:10
[2024-10-08] MEDS: SODIUM CHLORIDE 0.9% IV 1,000 ML 999 ML IV CONT (23:59)
[2024-10-09 00:03] VITALS: BP 151/63; PULSE 70; RESP 18; O2SAT 96
[2024-10-09 00:20] LABS: Hematocrit 41.4 % (37.0-47.0); Hemoglobin 13.4 g/dL (12.0-15.0); Mean Corpuscular HGB Conc 32.4 g/dl (32-36); Mean Corpuscular Hemoglobin 27.3 pg (26-34); Mean Corpuscular Volume 84.3 fl (80-100); Platelet Count Result 235 k/mm3 (150-375); Red Blood Count 4.91 M/mm3 (4.2-5.4); White Blood Count 16.1 K/mm3 (4.5-10.0)
[2024-10-09 00:27] LABS: Alanine Aminotransferase 16 U/L (6-35); Albumin Level 4.2 g/dL (3.5-5.1); Alkaline Phosphatase 60 U/L (38-126); Anion Gap 5 mmol/L (4-12); Aspartate Amino Transferase 35 U/L (14-36); Bilirubin,Total 0.6 mg/dL (0.2-1.3); Blood Urea Nitrogen 21 mg/dL (7-17); Calcium 8.8 mg/dL (8.4-10.2); Carbon Dioxide 29 mmol/L (22-30); Chloride 105 mmol/L (98-107); Estimated CRCL calculation 34 ml/min; Estimated Glomerular Filt Rate > 60; Glucose 117 mg/dL (65-110); Potassium 3.7 mmol/L (3.4-5.0); Sodium 139 mmol/L (137-145); Total Protein 7.5 g/dL (6.3-8.2)
[2024-10-09 00:52] LABS: Strep Group A RT-PCR NOT DETECTED (Negative)
[2024-10-09 00:53] VITALS: BP 151/63; PULSE 69; RESP 15; O2SAT 100
[2024-10-09 00:53] LABS: Band Neutrophils Percent 6 % (0-6); Lymphocytes Absolute Manual 0.64 K/mm3 (1.1-4.5); Lymphocytes Percent Manual 4.0 % (18-44); Monocytes Absolute Manual 2.09 K/mm3 (0.1-0.90); Monocytes Percent Manual 13 % (3-9); Neutrophils Absolute Manual 13.36 K/mm3 (1.3-6.7); Neutrophils Percent Manual 77 % (46-73); Total Cells Counted 100
[2024-10-09 00:54] LABS: Ovalocytes Occasional; Schistocytes None Seen
[2024-10-09 00:55] LABS: Smudge Cells PRESENT
[2024-10-09] MEDS: ONDANSETRON HCL ODT 4 MG TABLET PO (01:32)
[2024-10-09 01:39] VITALS: BP 168/95; PULSE 73; RESP 17; O2SAT 100
[2024-10-09 01:41] VITALS: BP 168/95; PULSE 73; RESP 17; O2SAT 100
== END 2024-10-09 01:43 | disposition home or self-care (01) ==
PROVIDERS: Emergency Provider Registered Nurse; PCP Family Medicine Adolescent Medicine
DX: R11.2 Nausea with vomiting, unspecified (principal); T36.0X5A Adverse effect of penicillins, initial encounter; J01.90 Acute sinusitis, unspecified; B97.89 Other viral agents as the cause of diseases classified elsewhere; E86.0 Dehydration; M79.7 Fibromyalgia; G62.9 Polyneuropathy, unspecified; Z90.710 Acquired absence of both cervix and uterus; Z77.22 Contact with and (suspected) exposure to environmental tobacco smoke (acute) (chronic)
CPT/HCPCS: 36415; 80053; 85025; 87651; 96360; 99283; A9270; J7030; J7512

== ENCOUNTER 2024-10-11 17:00 | Emergency (ER) | payer MEDICARE, SELFPAY ==
[2024-10-11] VITALS (13 sets, daily range): BP systolic 177–224; BP diastolic 61–80; PULSE 48–63; RESP 10–16; TEMP 36.4; O2SAT 98–100
--- NOTE | ~2024-10-11 | CT_ITS ---
EXAMINATION: CT brain wo con DATE: 10/11/2024 20:07 INDICATION: Headache TECHNIQUE: Computed tomography (CT) of the head was performed without intravenous contrast. Sagittal and coronal reconstructions were performed. The mA was adjusted according to patient size. Iterative reconstruction technique was employed. The dose-length product was 605.33 mGy-cm. COMPARISON: head CT dated 04/13/2023 FINDINGS: No acute intracranial hemorrhage, acute infarction or abnormal extra axial fluid collection. There is mild scattered white matter hypoattenuation consistent with chronic small vessel ischemic disease. Symmetric prominence of the sulci consistent with mild age-appropriate diffuse cerebral volume loss. Ventricles are normal and symmetric. No mass/mass effect. The orbits, paranasal sinuses and mastoid air cells are normal. IMPRESSION: 1. Normal aging brain. No acute intracranial process. Reviewed, dictated and finalized at location A.
--- NOTE | ~2024-10-11 | XR_ITS ---
EXAMINATION: XR chest 1V portable DATE: 10/11/2024 20:04 INDICATION: Hypertension with dizziness TECHNIQUE: frontal view of the chest was obtained. COMPARISON: Chest radiograph dated 08/09/2009 FINDINGS: Calcified nodule at the lateral right midlung zone and calcified bilateral hilar lymph nodes consistent with old granulomatous disease. No other airspace opacities, pulmonary edema, pleural effusion or pneumothorax. The cardiomediastinal silhouette is normal. IMPRESSION: 1. No acute cardiopulmonary disease. Reviewed, dictated and finalized at location A.
--- OUTSIDE RECORDS SUMMARY | 2024-10-11 17:07 | XMS_ITS | Clinical Summary ---
Author Organization [facility] Address [address] [place] [phone] Care Team Providers Care Herpetology Teacher Name Role Phone Efrain Castro MD Primary [...] Description 10/08/2024 3:45 PM CDT Office Visit [facility] at [address] [phone] Edmundo Rivas NP Acute maxillary sinusitis, recurrence not specified (Primary Dx) from Last 3 Months Immunizations Immunization Administration Dates Next Due Pneumococcal Polysaccharide PPV23 04/02/2012 Social History Tobacco Use Types Packs/Day Years Used Date Smoking Tobacco: Never Assessed Comments Unknown Sex and Gender Information Value Date Recorded Sex Assigned at Not on file 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
--- NOTE | 2024-10-11 19:01 | ECG_ITS ---
Test Date: 2024-10-11 19:34:23 Measurements Intervals [place] Rate: 46 P: 36 GA: 148 QRS: -15 QRSD: 131 T: 25 QT: 490 QTc: 431 Interpretive Statements SINUS BRADYCARDIA INTRAVENTRICULAR CONDUCTION DELAY LEFT VENTRICULAR HYPERTROPHY AND ST-T CHANGE HIGH LATERAL INFARCT, AGE INDETERMINATE BASELINE ARTIFACT- I, II, III, AVR ABNORMAL ECG No previous ECG available for comparison Electronically Signed On 10-11-2024 21:27:06 CDT by Brian Amos D.O.
[2024-10-11 19:37] LABS: Hematocrit 38.7 % (37.0-47.0); Hemoglobin 12.6 g/dL (12.0-15.0); Immature Granulocyte Percent A 0.4 % (0-0.5); Lymphocytes Absolute Auto 1.88 K/mm3 (0.9-3.2); Mean Corpuscular HGB Conc 32.6 g/dl (32-36); Mean Corpuscular Hemoglobin 27.5 pg (26-34); Mean Corpuscular Volume 84.5 fl (80-100); Nucleated Red Blood Cells Absolute Auto 0.000 K/mm3 (0.0-0.012); Nucleated Red Blood Cells Perc 0.0 % (0.0-0.2); Platelet Count Result 280 k/mm3 (150-375); Red Blood Count 4.58 M/mm3 (4.2-5.4); White Blood Count 11.5 K/mm3 (4.5-10.0)
--- NOTE | 2024-10-11 19:37 | ED.GENADULT ---
HPI - General Adult General Chief complaint: Recheck/Abnormal Lab/Rx Stated complaint: htn Time Seen by Provider: 10/11/24 17:56 History of Present Illness HPI narrative: Patient is an 79-year-old female who presents to the emergency department this evening complaining of an elevated blood pressure. Patient states that she does take blood pressure medications, atenolol and was watching TV when she started to have a headache. This prompted her to take her blood pressure and she noted that it was oversewn 200 systolic. Denies any additional symptoms or concerns including any chest pain or shortness of breath, any nausea vomiting or diarrhea. Denies any abdominal pain. No additional symptoms or concerns at this time. Related Data Home Medications ?Medication ?Instructions ?Recorded ?Confirmed ?Last Taken ?Type THC/CBD cream topical 08/23/23 05/25/24 Unknown History Allergies Allergy/AdvReac Type Severity Reaction Status Date / Time Cephalosporins Allergy Mild Unknown Verified 10/11/24 17:56 cephalexin Allergy Unknown Unknown Verified 10/11/24 17:56 penicillin G Allergy Unknown UNknown Verified 10/11/24 17:56 amoxicillin (From Augmentin) AdvReac Intermediate Nausea and Verified 10/11/24 17:56 Vomiting clavulanic acid (From AdvReac Intermediate Nausea and Verified 10/11/24 17:56 Augmentin) Vomiting clarithromycin AdvReac Unknown Unknown Verified 10/11/24 17:56 lisinopril AdvReac Unknown Unknown Verified 10/11/24 17:56 pravastatin AdvReac Unknown Unknown Verified 10/11/24 17:56 Review of Systems Review of Systems: All systems are reviewed and are negative unless stated otherwise in the HPI. [facility] Past Medical History Medical History Fibromyalgia Lower back pain Neck pain Bilateral carpal tunnel syndrome Peripheral neuropathy Surgical History Surgical History History of vaginal surgery Transvaginal taping 1998 History of hysterectomy with oophorectomy 1998 Family History Family History Father Acute myocardial infarction Diabetes mellitus Heart disease Other Breast cancer Sibling Carcinoma of colon Grandparent Cerebrovascular accident Other Depression Diabetes mellitus Mother Hypertension Other Asthma Social History Social History Smoking status: Never smoker Second hand tobacco smoke exposure: Yes Alcohol intake: never Substance use: never Substance use type: does not use Do You Feel Safe in your Home?: Yes Lack of Transportation: YES Lack of Food: Sometimes True Current Housing: I Have Housing Concerned About Future Housing: No Difficulty Paying Gas/Electric Bills: No Difficulty Paying for Meds: No Currently Unemployed: No Education: High School Diploma/GED Difficulty w/ Childcare or Family Care: No Living arrangements: with family Occupation/Education: retired Gender identity (if verbalized by the patient): Female Sexual Orientation (if Verbalized by the Patient): Straight or Heterosexual Spiritual care concerns: No Agree to blood products: Yes Exam Narrative: General: Alert, awake, afebrile, in no acute distress. HEENT: PERRL, no rhinorrhea, no post nasal drip, oropharynx clear. Neck: Trachea midline, no JVD, no lymphadenopathy. Cardiovascular: Regular rate and rhythm, no murmurs, rubs or gallops, no peripheral edema. Respiratory: Clear to auscultation bilaterally, no tachypnea, no wheezing, no rhonchi, no rubs, no respiratory distress. Abdomen: Soft, nontender, nondistended, no rebound, no guarding, no peritoneal signs. Musculoskeletal: No joint swelling or deformity, normal muscle tone. Skin: No rashes or petechia, no signs of infection. Psychiatric: Alert and oriented, normal behavior and judgment for situation. Neurological: Alert and oriented to person, place, and time. Follows all commands. No focal deficits, speech is clear and fluent. Course Vital Signs Vital signs: Vital Signs Temperature 97.6 F 10/11/24 17:01 Pulse Rate 63 10/11/24 17:01 Respiratory Rate 16 10/11/24 17:01 Blood Pressure 224/62 H 10/11/24 17:01 Pulse Oximetry 99 10/11/24 17:01 Temperature 97.6 F 10/11/24 17:01 Pulse Rate 49 L 10/11/24 21:03 Respiratory Rate 14 10/11/24 21:03 Blood Pressure 214/72 H 10/11/24 21:03 Pulse Oximetry 99 10/11/24 21:03 Medical Decision Making MDM Narrative Medical decision making narrative: The patient was evaluated by myself in the emergency department. History is obtained from patient who is an independent historian and physical exam was performed. External medical records were reviewed at this time. IV was established and pertinent tests were ordered. Patient was administered 10 mg of IV hydralazine for her hypertension. Patient presented with a blood pressure her of greater than 200 systolic. Repeat blood pressure after 10 of hydralazine is 177/61 mmHg. EKG was obtained which revealed sinus bradycardia rate of 46 beats per minute. No ST changes, T wave inversions or evidence of acute ischemia. EKG was independently interpreted by me and is currently pending official cardiology read. per chart review, patient was noted to be bradycardic in the 40s when looking at her past EKGs from March 2023. Patient is also on a beta-lisa. Laboratory results obtained revealing no acute process. Imaging studies obtained included CXR and CT brain without IV contrast which was independently interpreted by me revealing no acute process, which is pending final radiology interpretation. Differential diagnosis considerations include hypertensive urgency versus emergency, dehydration electrolyte derangements, acute viral syndrome. Comorbidities impacting this visit include history of hypertension. I have evaluated and discussed social determinants of health with the patient that could potentially impact subsequent diagnosis and treatment plans. On repeat assessment of the patient, reevaluation revealed that the patient is doing well and is in no acute distress. Patient symptoms have improved since she arrived to our emergency department. Repeat vital signs were all reviewed and noted to be stable. Differential diagnosis and treatment plan were discussed with the patient at bedside. Patient agrees with discussion and after shared medical decision making agrees with discharge. All questions were answered to the patient's satisfaction. Patient will follow up with her PCP in 3-5 days. Patient was provided with strict return precautions and instructed to return to the emergency department if any new or worsening symptoms develop. The patient was discharged in stable condition. Vital Signs Vital Signs: Vital Signs Temperature 97.6 F 10/11/24 17:01 Pulse Rate 63 10/11/24 17:01 Respiratory Rate 16 10/11/24 17:01 Blood Pressure 224/62 H 10/11/24 17:01 Pulse Oximetry 99 10/11/24 17:01 Temperature 97.6 F 10/11/24 17:01 Pulse Rate 49 L 10/11/24 21:03 Respiratory Rate 14 10/11/24 21:03 Blood Pressure 214/72 H 10/11/24 21:03 Pulse Oximetry 99 10/11/24 21:03 Lab Data 10/11/24 19:29 10/11/24 19:29 Labs: Lab Results 10/11/24 Range/Units 19:29 WBC 11.5 H (4.5-10.0) K/mm3 RBC 4.58 (4.2-5.4) M/mm3 Hgb 12.6 (12.0-15.0) g/dL Hct 38.7 (37.0-47.0) % MCV 84.5 (80-100) fl MCH 27.5 (26-34) pg MCHC 32.6 (32-36) g/dl RDW 12.6 (11.5-14.5) % Plt Count 280 (150-375) k/mm3 MPV 9.5 (7.4-10.4) fl Immature Gran % (Auto) 0.4 (0-0.5) % Neut % (Auto) 72.3 (45.5-73.1) % Lymph % (Auto) 16.3 L (18.3-44.2) % [place] % (Auto) 10.4 H (2.6-8.5) % Eos % (Auto) 0.3 (0-4.4) % Baso % (Auto) 0.3 (0.2-1.2) % Lymph # (Auto) 1.88 (0.9-3.2) K/mm3 [place] # (Auto) 1.2 H (0.1-0.6) K/mm3 Eos # (Auto) 0.0 (0-0.3) K/mm3 Baso # (Auto) 0.0 (0.0-0.1) K/mm3 Abs Immat Gran (auto) 0.05 H (0.00-0.031) K/mm3 Absolute Neuts (auto) 8.3 H (1.3-6.7) K/mm3 Absolute Nucleated RBC 0.000 (0.0-0.012) K/mm3 Nucleated RBC % 0.0 (0.0-0.2) % Sodium 140 (137-145) mmol/L Potassium 3.7 (3.4-5.0) mmol/L Chloride 105 (98-107) mmol/L Carbon Dioxide 29 (22-30) mmol/L Anion Gap 6 (4-12) mmol/L BUN 20 H (7-17) mg/dL Creatinine 0.99 (0.7-1.0) mg/dL Estim Creat Clear Calc 37 ml/min Estimated GFR 54 L (59 - ) Glucose 114 H (65-110) mg/dL Calcium 9.0 (8.4-10.2) mg/dL Magnesium 2.1 (1.6-2.3) mg/dL Total Bilirubin 0.3 (0.2-1.3) mg/dL AST 24 (14-36) U/L ALT 16 (6-35) U/L Alkaline Phosphatase 55 (38-126) U/L Total Protein 7.5 (6.3-8.2) g/dL Albumin 4.1 (3.5-5.1) g/dL Discharge Plan Discharge Clinical Impression: Hypertension Patient Disposition: Home Condition: Improved Instructions: Antibiotic Form, Hypertension (ED) Additional Instructions: Please follow-up with your family doctor within the next 3-5 days. You were instructed to keep a blood pressure log and checked her blood pressure at home 2 times every day and write those numbers down to be able to trend your blood pressure readings as you may need to have your blood pressure medications were adjusted. Return to the ED if any new or worsening symptoms develop. Patient Language: Upper Sorbian Prescriptions: No Action escitalopram oxalate 10 mg tablet 10 mg PO DAILY Qty: 30 5RF gabapentin 300 mg capsule 300 mg PO BID Qty: 90 5RF THC/CBD cream topical methylprednisolone [Medrol ([place])] 4 mg tablets,dose pack See Rx Instructions PO .COMPLEX Qty: 21 0RF Rx Instructions: for 6 days fluticasone propionate [Flonase Allergy Relief] 50 mcg/actuation spray,suspension 2 spray intranasal DAILY Qty: 16 0RF Rx Instructions: administer into each nostril ondansetron 4 mg tablet,disintegrating 4 mg PO Q8H Qty: 14 0RF albuterol sulfate 90 mcg/actuation HFA aerosol inhaler 2 inh inhalation Q4H PRN (Reason: shortness of breath or wheezing) Qty: 6.7 3RF azelastine 0.05 % drops See Rx Instructions .ROUTE .COMPLEX Qty: 18 0RF Dose Instruction: INSTILL 1 DROP IN EACH EYE TWICE DAILY Rx Instructions: INSTILL 1 DROP IN EACH EYE TWICE DAILY fluticasone propionate 50 mcg/actuation spray,suspension 2 spray intranasal DAILY Qty: 16 5RF Rx Instructions: administer into each nostril clobetasol 0.05 % cream 1 applic topical BID Qty: 60 1RF atenolol 50 mg tablet 75 mg PO DAILY Qty: 135 1RF lorazepam 0.5 mg tablet 0.5 mg PO TID PRN (Reason: anxiety) Qty: 90 4RF Follow-up/Referrals: Efrain Castro MD [Primary Care Provider, Family Practice] - 3 Days Time of Disposition: 21:39
[2024-10-11 19:52] LABS: Alanine Aminotransferase 16 U/L (6-35); Albumin Level 4.1 g/dL (3.5-5.1); Alkaline Phosphatase 55 U/L (38-126); Anion Gap 6 mmol/L (4-12); Aspartate Amino Transferase 24 U/L (14-36); Bilirubin,Total 0.3 mg/dL (0.2-1.3); Blood Urea Nitrogen 20 mg/dL (7-17); Calcium 9.0 mg/dL (8.4-10.2); Carbon Dioxide 29 mmol/L (22-30); Chloride 105 mmol/L (98-107); Estimated CRCL calculation 37 ml/min; Estimated Glomerular Filt Rate 54; Glucose 114 mg/dL (65-110); Magnesium 2.1 mg/dL (1.6-2.3); Potassium 3.7 mmol/L (3.4-5.0); Sodium 140 mmol/L (137-145); Total Protein 7.5 g/dL (6.3-8.2)
== END 2024-10-11 22:14 | disposition home or self-care (01) ==
PROVIDERS: Emergency Provider Emergency Medicine; PCP Family Medicine Adolescent Medicine
DX: I10 Essential (primary) hypertension (principal); M79.7 Fibromyalgia; G62.9 Polyneuropathy, unspecified; Z77.22 Contact with and (suspected) exposure to environmental tobacco smoke (acute) (chronic); Z79.899 Other long term (current) drug therapy
CPT/HCPCS: 36415; 70450; 71045; 80053; 83735; 85025; 93005; 96374; 99284; J0360

== ENCOUNTER 2024-12-04 22:01 | Emergency (ER) | payer MEDICARE, SELFPAY ==
--- NOTE | ~2024-12-04 | CT_ITS ---
EXAMINATION: CT brain wo con DATE: 12/04/2024 23:55 INDICATION: Dizziness and weakness. Mental status changes. TECHNIQUE: Computed tomography (CT) of the head was performed without intravenous contrast. The dose-length product was 756.67 mGy-cm. Automated exposure control and iterative reconstruction technique were employed. COMPARISON: CT dated 10/11/2024 FINDINGS: Mild generalized brain parenchymal volume loss. There are scattered mild periventricular and subcortical white matter changes, most likely related to small vessel ischemic disease (microangiopathy). There is intracranial atherosclerosis. No acute hemorrhage, infarction, mass or mass effect. Paranasal sinuses and mastoids are pneumatized. No depressed skull fractures. IMPRESSION: 1. No acute intracranial abnormality. Reviewed, dictated and finalized at location O.
[2024-12-04 22:02] VITALS: BP 166/84; PULSE 58; RESP 14; TEMP 36.7; O2SAT 100
[2024-12-04 22:06] VITALS: BP 166/84; PULSE 57; RESP 16; O2SAT 100
--- NOTE | 2024-12-04 22:08 | ECG_ITS ---
Test Date: 2024-12-04 22:09:52 Measurements Intervals [place] Rate: 53 P: 49 [place]: 173 QRS: -14 QRSD: 129 T: 48 QT: 446 QTc: 419 Interpretive Statements SINUS BRADYCARDIA RIGHT BUNDLE BRANCH BLOCK LEFT VENTRICULAR HYPERTROPHY AND ST-T CHANGE CANNOT R/O SEPTAL INFARCT, AGE INDETERMINATE HIGH LATERAL INFARCT, AGE INDETERMINATE BASELINE ARTIFACT- I, II, III, AVR, AVL, AVF, V1-V6 ABNORMAL ECG Compared to ECG 10/11/2024 19:34:23 HEART RATE HAS INCREASED Electronically Signed On 12-05-2024 06:15:59 CDT by Brian Amos D.O.
[2024-12-04 22:31] VITALS: BP 168/58; PULSE 55; RESP 17; O2SAT 100
[2024-12-04 22:56] VITALS: PULSE 53
[2024-12-04 23:31] VITALS: BP 170/64; PULSE 55; RESP 14; O2SAT 100
[2024-12-04 23:32] LABS: Hematocrit 38.2 % (37.0-47.0); Hemoglobin 12.7 g/dL (12.0-15.0); Immature Granulocyte Percent A 0.4 % (0-0.5); Lymphocytes Absolute Auto 1.83 K/mm3 (0.9-3.2); Mean Corpuscular HGB Conc 33.2 g/dl (32-36); Mean Corpuscular Hemoglobin 27.4 pg (26-34); Mean Corpuscular Volume 82.5 fl (80-100); Nucleated Red Blood Cells Absolute Auto 0.000 K/mm3 (0.0-0.012); Nucleated Red Blood Cells Perc 0.0 % (0.0-0.2); Platelet Count Result 243 k/mm3 (150-375); Red Blood Count 4.63 M/mm3 (4.2-5.4); White Blood Count 7.7 K/mm3 (4.5-10.0)
[2024-12-04 23:45] LABS: Alanine Aminotransferase 17 U/L (6-35); Albumin Level 4.0 g/dL (3.5-5.1); Alkaline Phosphatase 59 U/L (38-126); Anion Gap 8 mmol/L (4-12); Aspartate Amino Transferase 29 U/L (14-36); Bilirubin,Total 0.3 mg/dL (0.2-1.3); Blood Urea Nitrogen 22 mg/dL (7-17); Calcium 8.8 mg/dL (8.4-10.2); Carbon Dioxide 23 mmol/L (22-30); Chloride 100 mmol/L (98-107); Estimated CRCL calculation 39 ml/min; Estimated Glomerular Filt Rate > 60; Glucose 110 mg/dL (65-110); Potassium 3.9 mmol/L (3.4-5.0); Sodium 131 mmol/L (137-145); Total Protein 7.2 g/dL (6.3-8.2)
--- NOTE | 2024-12-04 23:59 | ED_ITS ---
HPI - Recheck/Abnormal Lab/Rx General Chief Complaint: Dizziness Stated Complaint: DIZZY, NAUSEA, SOB, HI B/P Time Seen by Provider: 12/04/24 23:23 History of Present Illness HPI narrative: 79-year-old female with history of hypertension. Patient presents to the emergency department with elevated blood pressure readings and feeling generalized weakness. Patient states she has been watching her blood pressure at home and taking her blood pressure readings multiple times per day and having readings in the 190s range. Sometimes dipping down as low as 160. Recently titrated on her medications by her PCP including adding on losartan and atenolol. Patient is taking these medications and not noticing any change her blood pressure. She states that she sometimes gets headaches but this is a chronic issue. Has been seen in the ER for hypertension without any acute findings multiple times. Patient self denies any new symptoms but just states that she felt more weak today and wanted to get evaluated as her blood pressure was high. No headache presently. No nausea, vomiting, chest pain, shortness a breath, unilateral weakness, facial asymmetry, facial droop, confusion, syncope, loss of consciousness, or any other complaints at this time besides generalized weakness. Ambulatory and able to get herself into the stretcher. Not any acute distress. Took her morning medications. Related Data Home Medications ?Medication ?Instructions ?Recorded ?Confirmed ?Last Taken ?Type THC/CBD cream topical 08/23/23 05/25/24 Un known History Allergies Allergy/AdvReac Type Severity Reaction Status Date / Time Cephalosporins Allergy Mild Unknown Verified 12/04/24 22:11 cephalexin Allergy Unknown Unknown Verified 12/04/24 22:11 penicillin G Allergy Unknown UNknown Verified 12/04/24 22:11 amoxicillin (From Augmentin) AdvReac Intermediate Nausea and Verified 12/04/24 22:11 Vomiting clavulanic acid (From AdvReac Intermediate Nausea and Verified 12/04/24 22:11 Augmentin) Vomiting clarithromycin AdvReac Unknown Unknown Verified 12/04/24 22:11 lisinopril AdvReac Unknown Unknown Verified 12/04/24 22:11 pravastatin AdvReac Unknown Unknown Verified 12/04/24 22:11 Review of Systems 2 Review of Systems: As reviewed above in HPI [facility] Past Medical History Medical History Fibromyalgia Lower back pain Neck pain Bilateral carpal tunnel syndrome Peripheral neuropathy Surgical History Surgical History History of vaginal surgery Transvaginal taping 1998 History of hysterectomy with oophorectomy 1998 Family History Family History Father Acute myocardial infarction Diabetes mellitus Heart disease Other Breast cancer Sibling Carcinoma of colon Grandparent Cerebrovascular accident Other Depression Diabetes mellitus Mother Hypertension Other Asthma Social History Social History Smoking status: Never smoker Second hand tobacco smoke exposure: Yes Alcohol intake: never Substance use: never Substance use type: does not use Do You Feel Safe in your Home?: Yes Lack of Transportation: YES Lack of Food: Sometimes True Current Housing: I Have Housing Concerned About Future Housing: No Difficulty Paying Gas/Electric Bills: No Difficulty Paying for Meds: No Currently Unemployed: No Education: High School Diploma/GED Difficulty w/ Childcare or Family Care: No Living arrangements: with family Occupation/Education: retired Gender identity (if verbalized by the patient): Female Sexual Orientation (if Verbalized by the Patient): Straight or Heterosexual Spiritual care concerns: No Agree to blood products: Yes Exam 2 Narrative: GENERAL: [Well-appearing, well-nourished, and in no acute distress.] HEAD: [Normocephalic, atraumatic.] EYES: [PERRLA and EOMI.] ENT: Nares clear, no rhinorrhea or epistaxis. Mucous membranes moist. NECK: Supple. CHEST: [Clear to auscultation. No respiratory distress.] HEART: [Regular rate and rhythm]. No murmur heard. [Normal peripheral pulses.] ABDOMEN: [Soft, nondistended], [nontender], [No rigidity or guarding] EXTREMITIES: Normal range of motion. [No edema.] SKIN: Warm, dry, no rash. NEURO: No deficits. Moving all extremities. No facial asymmetry. Alert x3. Symmetric strength throughout both arms and legs. No paresthesias. No ataxia and is ambulatory. PSYCH: [Normal mood and affect.] Course Vital Signs Vital signs: Vital Signs Temperature 36.7 C 12/04/24 22:02 Pulse Rate 58 L 12/04/24 22:02 Respiratory Rate 14 12/04/24 22:02 Blood Pressure 166/84 H 12/04/24 22:02 Pulse Oximetry 100 12/04/24 22:02 Oxygen Delivery Room Air 12/04/24 22:02 Temperature 36.7 C 12/04/24 22:02 Pulse Rate 57 L 12/05/24 02:24 Respiratory Rate 16 12/05/24 02:24 Blood Pressure 165/79 H 12/05/24 02:24 Pulse Oximetry 100 12/05/24 02:24 Oxygen Delivery Room Air 12/04/24 22:02 MDM - Recheck/Abnormal Lab/Rx MDM Narrative Medical decision making narrative: 79-year-old female with history of hypertension. Patient presents to the emergency department with elevated blood pressure readings and feeling generalized weakness. Patient states she has been watching her blood pressure at home and taking her blood pressure readings multiple times per day and having readings in the 190s range. Sometimes dipping down as low as 160. Recently titrated on her medications by her PCP including adding on losartan and atenolol. Patient is taking these medications and not noticing any change her blood pressure. She states that she sometimes gets headaches but this is a chronic issue. Has been seen in the ER for hypertension without any acute findings multiple times. Patient self denies any new symptoms but just states that she felt more weak today and wanted to get evaluated as her blood pressure was high. No headache presently. No nausea, vomiting, chest pain, shortness a breath, unilateral weakness, facial asymmetry, facial droop, confusion, syncope, loss of consciousness, or any other complaints at this time besides generalized weakness. Ambulatory and able to get herself into the stretcher. Not any acute distress. Took her morning medications. Patient's examination is benign no deficits. Moving all extremities. No facial asymmetry. Alert x3. Symmetric strength throughout both arms and legs. No paresthesias. No ataxia and is ambulatory. She has mildly elevated blood pressure here 166/84. Heart rate 58 but she took her atenolol tonight. No tachycardia, tachypnea, hypoxemia. Benign neurological status and vascular assessment. Likely asymptomatic hypertension and just needs PCP follow-up for titration of her chronic medications. Will rule out emergencies with laboratory studies and a CT scan EKG. She has no neurological symptoms at this time or any signs of end-organ damage based on history and physical. CT scan shows no acute intracranial process. No leukocytosis or anemia. Normal platelet count. Electrolytes show some mild dehydration which was repleted with fluids. Normal glucose. Normal LFTs. Urinalysis without signs of infection. EKG shows sinus rhythm, QTC 419. No ST segment elevations, depressions. Change from prior baseline EKG. Patient ambulatory with a steady gait and remained asymptomatic. Safe for discharge home at this time after fluids. Will follow- up with her PCP. Medical Records Attestation: I reviewed the patient's medical records. Lab Data Attestation: I reviewed the patient's lab results. 12/04/24 23:24 12/04/24 23:24 Labs: Lab Results 12/04/24 Range/Units 23:24 WBC 7.7 (4.5-10.0) K/mm3 RBC 4.63 (4.2-5.4) M/mm3 Hgb 12.7 (12.0-15.0) g/dL Hct 38.2 (37.0-47.0) % MCV 82.5 (80-100) fl MCH 27.4 (26-34) pg MCHC 33.2 (32-36) g/dl RDW 12.5 (11.5-14.5) % Plt Count 243 (150-375) k/mm3 MPV 8.8 (7.4-10.4) fl Immature Gran % (Auto) 0.4 (0-0.5) % Neut % (Auto) 55.2 (45.5-73.1) % Lymph % (Auto) 23.7 (18.3-44.2) % [place] % (Auto) 13.0 H (2.6-8.5) % Eos % (Auto) 6.9 H (0-4.4) % Baso % (Auto) 0.8 (0.2-1.2) % Lymph # (Auto) 1.83 (0.9-3.2) K/mm3 [place] # (Auto) 1.0 H (0.1-0.6) K/mm3 Eos # (Auto) 0.5 H (0-0.3) K/mm3 Baso # (Auto) 0.1 (0.0-0.1) K/mm3 Abs Immat Gran (auto) 0.03 (0.00-0.031) K/mm3 Absolute Neuts (auto) 4.3 (1.3-6.7) K/mm3 Absolute Nucleated RBC 0.000 (0.0-0.012) K/mm3 Nucleated RBC % 0.0 (0.0-0.2) % Sodium 131 L (137-145) mmol/L Potassium 3.9 (3.4-5.0) mmol/L Chloride 100 (98-107) mmol/L Carbon Dioxide 23 (22-30) mmol/L Anion Gap 8 (4-12) mmol/L BUN 22 H (7-17) mg/dL Creatinine 0.81 (0.7-1.0) mg/dL Estim Creat Clear Calc 39 ml/min Estimated GFR > 60 (59 - ) Glucose 110 (65-110) mg/dL Calcium 8.8 (8.4-10.2) mg/dL Total Bilirubin 0.3 (0.2-1.3) mg/dL AST 29 (14-36) U/L ALT 17 (6-35) U/L Alkaline Phosphatase 59 (38-126) U/L Total Protein 7.2 (6.3-8.2) g/dL Albumin 4.0 (3.5-5.1) g/dL Urine Color Yellow (Yellow) Urine Appearance Clear (Clear) Urine pH 6.5 (5.0-9.0) Ur Specific [place] 1.004 (1.001-1.035) Urine Protein Negative (Negative) mg/dL Urine Glucose (UA) Negative (Negative) mg/dL Urine Ketones Negative (Negative) mg/dL Ur Blood (Man) Trace (Negative) Urine Nitrate Negative (Negative) Urine Bilirubin Negative (Negative) Urine Urobilinogen 0.2 (<2.0) mg/dL Add Ur Microanalysis Reviewed Leukocyte Esterase Rfl Negative (Negative) AYSE/UL Urine RBC 6-10 H (0-2) /hpf Urine WBC 0-5 (0-3) /hpf Ur Squamous Epith Cells None seen (Few) /hpf Urine Bacteria None seen /hpf Urine Casts 0-2 Imaging Data Attestation: I personally reviewed and interpreted this imaging study as follows: My impression: No acute intracranial process Discharge Plan Discharge Clinical Impression: Asymptomatic hypertension, Acute dehydration Patient Disposition: Home Condition: Stable Instructions: Antibiotic Form, Chronic Hypertension (ED) Additional Instructions: Your blood work shows some slight dehydration which we corrected here with IV fluids. Your CT scan shows no abnormalities in the brain. Laboratory studies otherwise are normal in reassuring. Follow-up with your primary care provider regarding your blood pressure. The number is elevated but not causing any signs organ dysfunction or damage and just needs to be addressed with gradual increase her changing to medications rather than aggressive lowering of the number artificially. Return if you start experiencing crushing chest pain, shortness of breath, unilateral weakness, facial droop, losing consciousness or any other issues otherwise call your doctor for close follow-up visit. Patient Language: Bangladeshi Prescriptions: No Action escitalopram oxalate 10 mg tablet 10 mg PO DAILY Qty: 30 5RF gabapentin 300 mg capsule 300 mg PO BID Qty: 90 5RF THC/CBD cream topical fluticasone propionate [Flonase Allergy Relief] 50 mcg/actuation spray,suspension 2 spray intranasal DAILY Qty: 16 0RF Rx Instructions: administer into each nostril ondansetron 4 mg tablet,disintegrating 4 mg PO Q8H Qty: 14 0RF albuterol sulfate 90 mcg/actuation HFA aerosol inhaler 2 inh inhalation Q4H PRN (Reason: shortness of breath or wheezing) Qty: 6.7 3RF azelastine 0.05 % drops See Rx Instructions .ROUTE .COMPLEX Qty: 18 0RF Dose Instruction: INSTILL 1 DROP IN EACH EYE TWICE DAILY Rx Instructions: INSTILL 1 DROP IN EACH EYE TWICE DAILY clobetasol 0.05 % cream 1 applic topical BID Qty: 60 1RF atenolol 50 mg tablet 75 mg PO DAILY Qty: 135 1RF lorazepam 0.5 mg tablet 0.5 mg PO TID PRN (Reason: anxiety) Qty: 90 4RF losartan 50 mg tablet 50 mg PO DAILY Qty: 30 5RF clonidine HCl 0.1 mg tablet 0.1 mg PO TID PRN (Reason: blood pressure over 170) Qty: 50 1RF doxycycline hyclate 100 mg capsule 100 mg PO BID Qty: 20 0RF Follow-up/Referrals: Efrain Castro MD [Primary Care Provider, Family Practice] Time of Disposition: 02:07
[2024-12-05] MEDS: SODIUM CHLORIDE 0.9% IV 1,000 ML 999 ML IV CONT (00:06)
[2024-12-05 00:18] LABS: Add Urine Microscopic? YES; Appearance Urine Clear (Clear); Glucose Urine UA Negative (Negative); Leukocyte Esterase Ur Negative LEU/UL (Negative); Need Manual Microscopic Reviewed; Nitrate Urine Negative (Negative); Non Pathogenic Casts 0-2; Specific Grav Ur 1.004 (1.001-1.035)
[2024-12-05 01:17] VITALS: BP 174/81; PULSE 59; RESP 12; O2SAT 100
[2024-12-05 02:24] VITALS: BP 165/79; PULSE 57; RESP 16; O2SAT 100
== END 2024-12-05 02:25 | disposition home or self-care (01) ==
PROVIDERS: Emergency Provider Student in an Organized Health Care Education/Training Program; PCP Family Medicine Adolescent Medicine
DX: E86.0 Dehydration (principal); I10 Essential (primary) hypertension; R94.31 Abnormal electrocardiogram [ECG] [EKG]; M79.7 Fibromyalgia
CPT/HCPCS: 36415; 70450; 80053; 81001; 85025; 93005; 96360; 96361; 99284; J7030

== ENCOUNTER 2024-12-08 19:01 | Emergency (ER) | payer MEDICARE, SELFPAY ==
[2024-12-08] VITALS (8 sets, daily range): BP systolic 170–198; BP diastolic 59–84; PULSE 53–64; RESP 12–20; TEMP 36.8; O2SAT 96–100
--- NOTE | ~2024-12-08 | XR_ITS ---
XR chest 1V INDICATION:syncope . REFERENCE: None FINDINGS: A single AP of the chest demonstrates normal heart size. There are pulmonary nodules within the right upper lobe. There is no evidence of pneumothorax or pleural effusion. IMPRESSION: Right upper lobe pulmonary nodule. Reviewed, dictated and finalized at location S.
--- NOTE | ~2024-12-08 | CT_ITS ---
CT brain wo con HISTORY:syncope COMPARISON: None. TECHNIQUE: Axial images were obtained of the head without intravenous contrast. FINDINGS: No acute intracranial hemorrhage, mass effect or midline shift. No extra-axial fluid collections. There is generalized atrophy.Mild chronic white matter microangiopathic changes are noted.Visualized paranasal sinuses and mastoid air cells are clear. IMPRESSION: No acute intracranial hemorrhage or extra axial fluid collections. Generalized atrophy and mild chronic white matter microangiopathic changes. All CT scans at this facility are performed using low dose modulation techniques as appropriate to perform exam including the following: automated exposure control; use of iterative reconstruction technique; adjustment of the mA and/or kV according to patient size (this includes techniques or standardized protocols for targeted exams where dose is matched to indication/reason for exam). Reviewed, dictated and finalized at location S. IMPRESSION: No acute intracranial hemorrhage or extra axial fluid collections. Generalized atrophy and mild chronic white matter microangiopathic changes. All CT scans at this facility are performed using low dose modulation techniqu es as appropriate to perform exam including the following: automated exposure c ontrol; use of iterative reconstruction technique; adjustment of the mA and/or kV according to patient size (this includes techniques or standardized protocol s for targeted exams where dose is matched to indication/reason for exam).
--- NOTE | 2024-12-08 21:36 | ED_ITS ---
HPI - Recheck/Abnormal Lab/Rx General Chief Complaint: Recheck/Abnormal Lab/Rx Stated Complaint: HTN Time Seen by Provider: 12/08/24 21:19 Source: patient and family Mode of arrival: EMS Limitations: no limitations History of Present Illness HPI narrative: this is a an 79-year-old female with history of depression,, hypertension, peripheral neuropathy, anxiety disorder who presents to the ED for syncopal episode. Patient states that she stood up and was walking to another room when she became lightheaded and had a syncopal episode. Family was behind her and was able to ease her down onto the floor. She was only out for a couple seconds max. She reports that she feels better at this time. She does report that she has had some left lateral rib pain for the past week that comes and goes. She has been dealing with issues with her blood pressure has had some changes here in there because it has been high. She states that she had called her doctor today prior to this as well because she was stressed her blood pressure being in the 180s to 190s/ 100s. She states she has had syncopal episodes in past to emotional events as well. Related Data Home Medications ?Medication ?Instructions ?Recorded ?Confirmed ?Last Taken ?Type THC/CBD cream topical 08/23/23 05/25/24 Un known History Allergies Allergy/AdvReac Type Severity Reaction Status Date / Time Cephalosporins Allergy Mild Unknown Verified 12/04/24 22:11 cephalexin Allergy Unknown Unknown Verified 12/04/24 22:11 penicillin G Allergy Unknown UNknown Verified 12/04/24 22:11 amoxicillin (From Augmentin) AdvReac Intermediate Nausea and Verified 12/04/24 22:11 Vomiting clavulanic acid (From AdvReac Intermediate Nausea and Verified 12/04/24 22:11 Augmentin) Vomiting clarithromycin AdvReac Unknown Unknown Verified 12/04/24 22:11 lisinopril AdvReac Unknown Unknown Verified 12/04/24 22:11 pravastatin AdvReac Unknown Unknown Verified 12/04/24 22:11 Review of Systems 2 Review of Systems: Gen.: Denies fevers or chills Eyes: Denies eye pain or visual change ENT: Denies congestion Respiratory: Denies shortness of breath or cough CV: As per HPI GI: Denies abdominal pain nausea, emesis or diarrhea denies burning, urgency, frequency or hematuria Musculoskeletal: Denies back pain or muscle pain Neuro: Denies numbness, tingling, weakness or focal weakness Skin: Denies rash Except as documented, all other systems reviewed and negative [facility] Past Medical History Medical History Fibromyalgia Lower back pain Neck pain Bilateral carpal tunnel syndrome Peripheral neuropathy Surgical History Surgical History History of vaginal surgery Transvaginal taping 1998 History of hysterectomy with oophorectomy 1998 Family History Family History Father Acute myocardial infarction Diabetes mellitus Heart disease Other Breast cancer Sibling Carcinoma of colon Grandparent Cerebrovascular accident Other Depression Diabetes mellitus Mother Hypertension Other Asthma Social History Social History Smoking status: Never smoker Second hand tobacco smoke exposure: Yes Alcohol intake: never Substance use: never Substance use type: does not use Do You Feel Safe in your Home?: Yes Lack of Transportation: YES Lack of Food: Sometimes True Current Housing: I Have Housing Concerned About Future Housing: No Difficulty Paying Gas/Electric Bills: No Difficulty Paying for Meds: No Currently Unemployed: No Education: High School Diploma/GED Difficulty w/ Childcare or Family Care: No Living arrangements: with family Occupation/Education: retired Gender identity (if verbalized by the patient): Female Sexual Orientation (if Verbalized by the Patient): Straight or Heterosexual Spiritual care concerns: No Agree to blood products: Yes Exam 2 Narrative: APPEARANCE: No acute distress, nontoxic, resting in bed EYES: EOMI HEENT: Normocephalic, atraumatic, OMM RESPIRATORY: No respiratory distress Clear to auscultation bilaterally with no rhonchi wheezing or rales. CARDIOVASCULAR: Regular rate and rhythm without murmurs rubs or gallops. ABDOMINAL: Soft, nontender, nondistended, no rebound or guarding MUSCULOSKELETAl: Moves all extremities. No clubbing, cyanosis or edema. NEURO: Awake and alert. Following commands, speech normal, no focal deficits. SKIN:: Warm, dry. No rashes lesions or abrasions PSYCHIATRIC: Normal affect/mood, Course Vital Signs Vital signs: Vital Signs Temperature 98.3 F 12/08/24 19:20 Pulse Rate 64 12/08/24 19:20 Respiratory Rate 18 12/08/24 19:20 Blood Pressure 184/60 H 12/08/24 19:20 Pulse Oximetry 96 12/08/24 19:20 Oxygen Delivery Room Air 12/08/24 19:20 Temperature 98.3 F 12/08/24 19:20 Pulse Rate 59 L 12/09/24 00:52 Respiratory Rate 12 12/09/24 00:52 Blood Pressure 177/65 H 12/09/24 00:52 Pulse Oximetry 100 12/09/24 00:52 Oxygen Delivery Room Air 12/08/24 21:27 MDM - Recheck/Abnormal Lab/Rx MDM Narrative Medical decision making narrative: 79-year-old female presenting for syncopal episode after standing up. On initial evaluation, patient was in no acute distress, afebrile, hemodynamically stable. She had a nonfocal neuro exam. Heart and lungs clear. Abdomen soft and nontender. CBC and CMP were without significant abnormalities. BNP slightly elevated at 840. Troponin negative. Chest x-ray showed no acute process. CT head showed no acute process. Patient remained asymptomatic while in the ED. orthostatic blood pressures were obtained and were negative. She was given 1 L NS bolus. I suspect that patient is having orthostatic hypotension potentially related to her blood pressure medications. However, she may have an underlying autonomic instability causing her to get frequent orthostatic hypotension. She was educated on standing up slowly. She was advised follow-up with her PCP in the next week for re- evaluation. Patient was agreeable to this plan. Given strict return precautions. Differential Diagnosis Differential diagnosis: Likely other (ACS, syncope, vasovagal syncope, orthostatic syncope, electrolyte abnormality) Medical Records Attestation: I reviewed the patient's medical records. Lab Data Attestation: I reviewed the patient's lab results. 12/08/24 22:16 12/08/24 22:16 Labs: Lab Results 12/08/24 12/08/24 12/08/24 Range/Units 21:40 22:16 22:38 WBC 6.6 (4.5-10.0) K/mm3 RBC 4.60 (4.2-5.4) M/mm3 Hgb 12.5 (12.0-15.0) g/dL Hct 38.3 (37.0-47.0) % MCV 83.3 (80-100) fl MCH 27.2 (26-34) pg MCHC 32.6 (32-36) g/dl RDW 12.7 (11.5-14.5) % Plt Count 235 (150-375) k/mm3 MPV 8.7 (7.4-10.4) fl Immature Gran % (Auto) 0.2 (0-0.5) % Neut % (Auto) 46.7 (45.5-73.1) % Lymph % (Auto) 33.7 (18.3-44.2) % Swisher % (Auto) 14.2 H (2.6-8.5) % Eos % (Auto) 4.1 (0-4.4) % Baso % (Auto) 1.1 (0.2-1.2) % Lymph # (Auto) 2.24 (0.9-3.2) K/mm3 Swisher # (Auto) 0.9 H (0.1-0.6) K/mm3 Eos # (Auto) 0.3 (0-0.3) K/mm3 Baso # (Auto) 0.1 (0.0-0.1) K/mm3 Abs Immat Gran (auto) 0.01 (0.00-0.031) K/mm3 Absolute Neuts (auto) 3.1 (1.3-6.7) K/mm3 Absolute Nucleated RBC 0.000 (0.0-0.012) K/mm3 Nucleated RBC % 0.0 (0.0-0.2) % Sodium 137 (137-145) mmol/L Potassium 4.1 (3.4-5.0) mmol/L Chloride 104 (98-107) mmol/L Carbon Dioxide 26 (22-30) mmol/L Anion Gap 7 (4-12) mmol/L BUN 24 H (7-17) mg/dL Creatinine 0.89 (0.7-1.0) mg/dL Estim Creat Clear Calc 31 ml/min Estimated GFR > 60 (59 - ) Glucose 98 (65-110) mg/dL POC Capillary Glucose 95 (65-105) mg/dl Lactic Acid 0.9 (0.7-2.0) mmol/L Calcium 9.0 (8.4-10.2) mg/dL Total Bilirubin 0.5 (0.2-1.3) mg/dL AST 29 (14-36) U/L ALT 18 (6-35) U/L Alkaline Phosphatase 66 (38-126) U/L Troponin I 0.014 (0.000-0.034) ng/mL NT-Pro-B Natriuret Pep 842 H (19.9-100) pg/mL Total Protein 7.3 (6.3-8.2) g/dL Albumin 4.0 (3.5-5.1) g/dL Urine Color Yellow (Yellow) Urine Appearance Clear (Clear) Urine pH 6.0 (5.0-9.0) Ur Specific [place] 1.005 (1.001-1.035) Urine Protein Negative (Negative) mg/dL Urine Glucose (UA) Negative (Negative) mg/dL Urine Ketones Negative (Negative) mg/dL Ur Blood (Man) Trace (Negative) Urine Nitrate Negative (Negative) Urine Bilirubin Negative (Negative) Urine Urobilinogen 0.2 (<2.0) mg/dL Leukocyte Esterase Rfl Negative (Negative) AYSE/UL Urine RBC 0-2 (0-2) /hpf Urine WBC 0-5 (0-3) /hpf Ur Squamous Epith Cells None seen (Few) /hpf Urine Bacteria None seen /hpf Urine Casts 0-2 Imaging Data Attestation: I personally reviewed and interpreted this imaging study as follows: My impression: chest x-ray: Normal cardiac silhouette, no pulmonary vascular congestion, no effusions, no consolidations Radiologist's impression: Impressions Head CT 12/08/24 21:59 IMPRESSION: No acute intracranial hemorrhage or extra axial fluid collections. Generalized atrophy and mild chronic white matter microangiopathic changes. All CT scans at this facility are performed using low dose modulation techniques as appropriate to perform exam including the following: automated exposure control; use of iterative reconstruction technique; adjustment of the mA and/or kV according to patient size (this includes techniques or standardized protocols for targeted exams where dose is matched to indication/reason for exam). Chest X-Ray 12/08/24 22:18 IMPRESSION: Right upper lobe pulmonary nodule. Discharge Plan Discharge Clinical Impression: Orthostatic hypotension Patient Disposition: Home Condition: Stable Instructions: Antibiotic Form, Hypotension (ED) Additional Instructions: Your labs, EKG, and chest x-ray were all reassuring that there is no heart damage at this time. I suspect that you were having orthostatic hypotension potentially related to your medications and may be due to autonomic dysfunction. You should speak with your PCP potentially about midodrine or alternative blood pressure medications. When you stand up, sit up from a lying position and weight about 1 minute before standing up and then wait another minute before proceeding. Return to the ED for any new or worsening symptoms. Patient Language: Frisian Prescriptions: No Action escitalopram oxalate 10 mg tablet 10 mg PO DAILY Qty: 30 5RF gabapentin 300 mg capsule 300 mg PO BID Qty: 90 5RF THC/CBD cream topical fluticasone propionate [Flonase Allergy Relief] 50 mcg/actuation spray,suspension 2 spray intranasal DAILY Qty: 16 0RF Rx Instructions: administer into each nostril ondansetron 4 mg tablet,disintegrating 4 mg PO Q8H Qty: 14 0RF albuterol sulfate 90 mcg/actuation HFA aerosol inhaler 2 inh inhalation Q4H PRN (Reason: shortness of breath or wheezing) Qty: 6.7 3RF azelastine 0.05 % drops See Rx Instructions .ROUTE .COMPLEX Qty: 18 0RF Dose Instruction: INSTILL 1 DROP IN EACH EYE TWICE DAILY Rx Instructions: INSTILL 1 DROP IN EACH EYE TWICE DAILY clobetasol 0.05 % cream 1 applic topical BID Qty: 60 1RF atenolol 50 mg tablet 75 mg PO DAILY Qty: 135 1RF lorazepam 0.5 mg tablet 0.5 mg PO TID PRN (Reason: anxiety) Qty: 90 4RF losartan 50 mg tablet 50 mg PO DAILY Qty: 30 5RF clonidine HCl 0.1 mg tablet 0.1 mg PO TID PRN (Reason: blood pressure over 170) Qty: 50 1RF doxycycline hyclate 100 mg capsule 100 mg PO BID Qty: 20 0RF Follow-up/Referrals: Efrain Castro MD [Primary Care Provider, Family Practice]
[2024-12-08] MEDS: SODIUM CHLORIDE 0.9% IV 1,000 ML 999 ML IV CONT (22:03)
[2024-12-08 22:22] LABS: Hematocrit 38.3 % (37.0-47.0); Hemoglobin 12.5 g/dL (12.0-15.0); Immature Granulocyte Percent A 0.2 % (0-0.5); Lymphocytes Absolute Auto 2.24 K/mm3 (0.9-3.2); Mean Corpuscular HGB Conc 32.6 g/dl (32-36); Mean Corpuscular Hemoglobin 27.2 pg (26-34); Mean Corpuscular Volume 83.3 fl (80-100); Nucleated Red Blood Cells Absolute Auto 0.000 K/mm3 (0.0-0.012); Nucleated Red Blood Cells Perc 0.0 % (0.0-0.2); Platelet Count Result 235 k/mm3 (150-375); Red Blood Count 4.60 M/mm3 (4.2-5.4); White Blood Count 6.6 K/mm3 (4.5-10.0)
[2024-12-08 22:34] LABS: Alanine Aminotransferase 18 U/L (6-35); Albumin Level 4.0 g/dL (3.5-5.1); Alkaline Phosphatase 66 U/L (38-126); Anion Gap 7 mmol/L (4-12); Aspartate Amino Transferase 29 U/L (14-36); Bilirubin,Total 0.5 mg/dL (0.2-1.3); Blood Urea Nitrogen 24 mg/dL (7-17); Calcium 9.0 mg/dL (8.4-10.2); Carbon Dioxide 26 mmol/L (22-30); Chloride 104 mmol/L (98-107); Estimated CRCL calculation 31 ml/min; Estimated Glomerular Filt Rate > 60; Glucose 98 mg/dL (65-110); Potassium 4.1 mmol/L (3.4-5.0); Sodium 137 mmol/L (137-145); Total Protein 7.3 g/dL (6.3-8.2)
[2024-12-08 22:46] LABS: NT Pro B Type Natriuretic Pept 842 pg/mL (19.9-100); Troponin I 0.014 ng/mL (0.000-0.034)
[2024-12-08 22:48] LABS: Add Urine Microscopic? YES; Appearance Urine Clear (Clear); Glucose Urine UA Negative (Negative); Leukocyte Esterase Ur Negative LEU/UL (Negative); Nitrate Urine Negative (Negative); Non Pathogenic Casts 0-2; Specific Grav Ur 1.005 (1.001-1.035)
--- NOTE | 2024-12-08 22:59 | PC.NURSE ---
This RN spoke to pt daughter Kathy and gave update on pt per pt request. Will call back with updated status. [phone]
[2024-12-09 00:52] VITALS: BP 177/65; PULSE 59; RESP 12; O2SAT 100
--- NOTE | 2024-12-09 00:56 | PC.NURSE ---
This RN called pt daughter and gave update on pt discharge instructions per pt request
== END 2024-12-08 23:58 | disposition home or self-care (01) ==
PROVIDERS: Emergency Provider Student in an Organized Health Care Education/Training Program; PCP Family Medicine Adolescent Medicine
DX: I95.1 Orthostatic hypotension (principal); I10 Essential (primary) hypertension; M79.7 Fibromyalgia; G62.9 Polyneuropathy, unspecified; F41.9 Anxiety disorder, unspecified; F32.A Depression, unspecified; Z77.22 Contact with and (suspected) exposure to environmental tobacco smoke (acute) (chronic); Z79.899 Other long term (current) drug therapy
CPT/HCPCS: 36415; 70450; 71045; 80053; 81001; 82948; 83605; 83880; 84484; 85025; 96360; 99284; J7030

== ENCOUNTER 2024-12-20 17:36 | Outpatient (CLI) | payer MEDICARE, SELFPAY ==
[2024-12-20 18:11] LABS: Anion Gap 7 mmol/L (4-12); Blood Urea Nitrogen 17 mg/dL (7-17); Calcium 8.8 mg/dL (8.4-10.2); Carbon Dioxide 26 mmol/L (22-30); Chloride 98 mmol/L (98-107); Estimated Glomerular Filt Rate 49; Glucose 101 mg/dL (65-110); Potassium 4.2 mmol/L (3.4-5.0); Sodium 131 mmol/L (137-145)
--- OUTSIDE RECORDS SUMMARY | 2024-12-21 15:29 | XMS_ITS | Clinical Summary ---
Author Organization [facility] Address [address] [place] [id number] Care Team Providers Care Sap Solution Manager Consultant Name Role Phone Carissa Moreno MD Primary Care Provider [phone] Allergies Active Allergy Reactions Criticality Noted Date Comments Amoxicillin-Pot Clavulanate Diarrhea,Nausea only Low 12/12/2024 Cephalosporins Unknown Low 04/13/2023 Clarithromycin Unknown 04/13/2023 Lisinopril Unknown 04/13/2023 Pravastatin Unknown 04/13/2023 Medications gabapentin (NEURONTIN) 300 mg capsule Take 1 capsule (300 mg total) by mouth 3 (three) times a day 5 Active LORazepam (ATIVAN) 0.5 mg tablet Take by mouth 3 (three) times a day as needed 5 Active fluticasone propionate (FLONASE) 50 mcg/actuation nasal spray 5 Active albuterol HFA (PROVENTIL HFA,VENTOLIN HFA,PROAIR HFA) 90 mcg/actuation inhaler Q4H 3 Active atenoloL (TENORMIN) 50 mg tablet Take 2 tablets (100 mg total) by mouth nightly Active losartan (COZAAR) 50 mg tablet Take 2 tablets (100 mg total) by mouth daily Active atenoloL (TENORMIN) 50 mg tablet Take 1.5 tablets (75 mg total) by mouth daily 5 12/13/19 25 Discontinu ed(Patient Reported) clonazePAM (KlonoPIN) 0.5 mg tablet TAKE ONE-HALF TO ONE TABLET BY MOUTH 30 MINUTES BEFORE BEDTIME. DO NOT COMBINE WITH LORAZEPAM 12/13/19 Discontinu ed(Patient Reported) escitalopram (LEXAPRO) 10 mg tablet Take 1 tablet (10 mg total) by mouth daily 12/14/19 Discontinu ed(Patient Reported) levoFLOXacin (LEVAQUIN) 500 mg tablet Take 1 tablet (500 mg total) by mouth daily 5 12/13/19 Discontinu ed(Patient Reported) losartan (COZAAR) 50 mg tablet Take 1 tablet (50 mg total) by mouth daily 12/14/19 Discontinu ed(Patient Reported) atenoloL (TENORMIN) 50 mg tablet Take 2 tablets (100 mg total) by mouth daily 12/13/19 Discontinu ed(Patient Reported) atenoloL (TENORMIN) 50 mg tablet Take 1.5 tablets (75 mg total) by mouth daily 12/14/19 Discontinu ed(Patient Reported) Active Problems Problem Noted Date Diagnosed Date Severe major depressive disorder 12/19/2024 Assessment & Plan (12/19/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 PHQ -9 score of 21 - severe depressive disorder. No SI/HI. Patient's daughter disclose pt is constantly worried about everything including her kids and grandkids, which is causing the elevated readings at home. She is currently on Ativan 0.5 mg as needed. Discussed starting SSRIs but patient was not agreeable and would like to continue her current management of using Ativan. Continue Ativan 0.5 mg TID PRN. Follow up in 6 months Abnormal weight loss 10/08/2024 Anxiety disorder, unspecified 10/08/2024 Arm paresthesia, left 10/08/2024 Hand paresthesia 10/08/2024 Essential (primary) hypertension 10/08/2024 Assessment & Plan (12/19/2024 11:58 AM SHUTTLECOCK ASSEMBLER): Chronic, not at goal. BP 148/72, goal of <140/80. Patient previous PCP recently increased atenolol to 100 mg nightly and losartan from 50 mg to 100 mg daily. Continue atenolol 100 mg nightly Continue losartan 100 mg daily Hold clonidine 0.1 mg TID as needed Follow up on 01/09/25 Gastro-esophageal reflux disease without esophag itis 10/08/2024 Major depressive disorder, recurrent, mild 10/08 Mild intermittent asthma, uncomplicated 10/09/19 25 Muscle cramp, nocturnal 10/08/2024 Neuralgia 10/08/2024 Other fatigue 10/08/2024 Palpitations 10/08/2024 Pure hypercholesterolemia, unspecified Encounters Date Type Department Care Team Description 12/18/2024 Nurse Triage [facility] at [address] [id number] Carissa Moreno MD 12/13/2024 Telephone [facility] [address] [phone] Carissa Moreno MD Medication Request 12/12/2024 2:30 PM CDT Office Visit [facility] [address] [phone] Carissa Moreno MD Essential (primary) hypertension (Primary Dx); Severe major depressive disorder (HCC) 10/08/2024 3:45 PM CDT Office Visit [facility] at [address] [id number] Edmundo Rivas NP Acute maxillary sinusitis, recurrence not specified (Primary Dx) from Last 3 Months Immunizations Immunization Administration Dates Next Due Pneumococcal Polysaccharide PPV23 04/02/2012 Surgical History Surgery Date Site/Laterality Comments BLADDER SUSPENSION Medical History Medical History Date Comments Hypertension Depression Family History Medical History Relation Name Comments Diabetes Father Hypertension Mother Relation Name Status Comments Father Mother Social History Tobacco Use Types Packs/Day Years Used Date Smoking Tobacco: Former Cigarettes Smokeless Tobacco: Never Tobacco Cessation:Counseling Given: Not Answered Alcohol Use Standard Drinks/Week Comments Never 0 (1 standard drink = 0.6 oz pur e alcohol) PHQ-2 Answer Date Recorded PHQ-2 Total Score (If total score is 3 or more points, staff should administer the PHQ-9) 6 12/12/2024 PHQ-9 Answer Date Recorded PHQ-9 Total Score 21 12/12/2024 AUDIT-C Answer Date Recorded Q1: How often do you have a drink containing alcohol? Never 12/12/2024 Q2: How many drinks containi ng alcohol do you have on a typical day when you are drinking? Patient does not drink Q3: How often do you have si x or more drinks on one occasion? Never 12/12/2024 Comments Unknown Sex and Gender Information Value Date Recorded Sex Assigned at Not on file Legal Sex Female 2:08 AM SHUTTLECOCK ASSEMBLER Gender Identity Not on file Sexual Orientation Not on file Last Filed Vital Signs Vital Sign Reading Time Taken Comments Blood Pressure 148/72 12/12/2024 2:53 PM CDT Pulse 62 12/12/2024 2:53 PM CDT Temperature 36.6 C (97.8 F) 12/12/2024 2:53 PM CDT Respiratory Rate 16 12/12/2024 2:53 PM CDT Oxygen Saturation 95% 12/12/2024 2:53 PM CDT Inhaled Oxygen Concentration - - Weight 56.9 kg (125 lb 8 oz) 12/12/2024 2:53 PM CDT Height 152.4 cm (5') 12/12/2024 2:53 PM CDT Body Mass Index 24.51 12/12/2024 2:53 PM CDT Plan of Treatment Health Maintenance Due Date Last Done Comments Osteoporosis Screening-Bone Density Scan 1945 Well Visit 65+ 04/28/2008 DTaP/Tdap/Td Vaccine (1 - Tdap) 03/14/2025 Postponed from 04/28/1954 (Patient declined, but will receive in the future) Influenza Vaccine (#1) 2025 Postp oned from 10/16/2024 (Patient declined, but will receive in the future) Covid-19 Vaccine ( season) 2025 12/30/2021, 06/18/2021, 01/01/2021, Additional history exists Postponed from 10/16/2024 (Patient declined, but will receive in the future) Depression Screening 12/12/2025 12/12/2024, 12/13/19 25 Fall Risk Assessment 12/12/2025 12/12/2024 Hepatitis B Screening 12/12/2025 Postpo karma from [birth year]28/1963 (Patient declined, but will receive in the future) Pneumococcal vaccine 65+ (2 of 2 - PCV) 12/12/2025 04/02/2012 Postponed from 04/02/2013 (Patient declined, but will receive in the future) Zoster Vaccine (1 of 2) 12/12/2025 Post poned from 04/28/1993 (Patient declined, but will receive in the future) Insurance [employer] [place] [address] [employer] MEDICARE PPO Care Teams Sap Solution Manager Consultant Relationship Specialty Start Date End Date Carissa Moreno MD [address] [place] [address] PCP - General Family Medicine 12/12/24
== END 2024-12-20 17:37 | disposition home or self-care (01) ==
LOC: ANHLAB 17:41
PROVIDERS: PCP Family Medicine Adolescent Medicine; Visit Provider Family Medicine
DX: I10 Essential (primary) hypertension (principal)
CPT/HCPCS: 36415; 80048

== ENCOUNTER 2025-01-28 12:47 | Emergency (ER) | payer MEDICARE, SELFPAY ==
[2025-01-28] VITALS (16 sets, daily range): BP systolic 162–201; BP diastolic 62–91; PULSE 54–86; RESP 9–25; TEMP 36.4; O2SAT 97–100
--- NOTE | ~2025-01-28 | CT_ITS ---
EXAMINATION: CT brain wo con, 01/28/2025 16:00 RESTAURANT WORKER HISTORY: dizziness COMPARISON: No comparisons available. Technique: Axial images obtained of the brain without contrast. One or more of the following dose reduction techniques were used: automated exposure control, adjustment of the mA and/or kV according to patient size, use of iterative reconstruction technique. Findings: No acute infarct or parenchymal hemorrhage. No abnormal mass or mass effect. No midline shift. No extra-axial fluid collections. No hydrocephalus. Mastoid air cells unremarkable. Sinuses and orbits unremarkable. No acute fracture. No significant facial or scalp soft tissue swelling evident. No radiopaque foreign body is seen. Impression: 1.No acute intracranial abnormality. Reviewed, dictated and finalized at location P. AURANT WORKER Impression: 1.No acute intracranial abnormality.
--- NOTE | ~2025-01-28 | XR_ITS ---
EXAMINATION: XR chest 2V, 01/28/2025 14:07 SKEIN BLEACHER HISTORY: weakness COMPARISON: No comparisons available. Technique: 2 views obtained. Findings: The lungs are clear, no effusion. No pneumothorax. Heart is normal size. Mediastinal and hilar contours are within normal limits. Bony thorax no acute abnormality. Impression: No acute cardiopulmonary abnormality. Reviewed, dictated and finalized at location P. N BLEACHER Impression: No acute cardiopulmonary abnormality.
--- NOTE | 2025-01-28 12:56 | ECG_ITS ---
Test Date: 2025-01-28 12:57:50 Measurements Intervals [place] Rate: 61 P: 55 MT: 166 QRS: -20 QRSD: 131 T: 9 QT: 460 QTc: 465 Interpretive Statements SINUS RHYTHM WITH OCCASIONAL ECTOPIC PREMATURE COMPLEXES RIGHT BUNDLE BRANCH BLOCK LEFT VENTRICULAR HYPERTROPHY AND ST-T CHANGE CANNOT R/O SEPTAL INFARCT, AGE INDETERMINATE HIGH LATERAL INFARCT, AGE INDETERMINATE BASELINE ARTIFACT- I, II, III, AVR, AVL, AVF, V1-V6 ABNORMAL ECG Compared to ECG 12/04/2024 22:09:52 HEART RATE HAS INCREASED Electronically Signed On 01-28-2025 15:42:24 PATRON ATTENDANT by Brian Amos D.O.
[2025-01-28 13:20] LABS: Hematocrit 39.3 % (37.0-47.0); Hemoglobin 13.3 g/dL (12.0-15.0); Immature Granulocyte Percent A 0.2 % (0-0.5); Lymphocytes Absolute Auto 1.26 K/mm3 (0.9-3.2); Mean Corpuscular HGB Conc 33.8 g/dl (32-36); Mean Corpuscular Hemoglobin 27.7 pg (26-34); Mean Corpuscular Volume 81.9 fl (80-100); Nucleated Red Blood Cells Absolute Auto 0.000 K/mm3 (0.0-0.012); Nucleated Red Blood Cells Perc 0.0 % (0.0-0.2); Platelet Count Result 284 k/mm3 (150-375); Red Blood Count 4.80 M/mm3 (4.2-5.4); White Blood Count 6.0 K/mm3 (4.5-10.0)
[2025-01-28] MEDS: ONDANSETRON INJ 4 MG/2 ML VIAL IV PUSH (13:28)
[2025-01-28] MEDS: LACTATED RINGERS 1,000 ML 999 ML IV CONT ×2 (13:28→15:06)
[2025-01-28 13:33] LABS: Add Urine Microscopic? YES; Appearance Urine Clear (Clear); Glucose Urine UA Negative (Negative); Leukocyte Esterase Ur Trace LEU/UL (Negative); Nitrate Urine Negative (Negative); Non Pathogenic Casts 0-2; Specific Grav Ur 1.003 (1.001-1.035)
[2025-01-28 13:44] LABS: Alanine Aminotransferase 20 U/L (6-35); Albumin Level 4.4 g/dL (3.5-5.1); Alkaline Phosphatase 66 U/L (38-126); Anion Gap 5 mmol/L (4-12); Aspartate Amino Transferase 33 U/L (14-36); Bilirubin,Total 0.5 mg/dL (0.2-1.3); Blood Urea Nitrogen 9 mg/dL (7-17); Calcium 9.3 mg/dL (8.4-10.2); Carbon Dioxide 25 mmol/L (22-30); Chloride 95 mmol/L (98-107); Estimated CRCL calculation 34 ml/min; Estimated Glomerular Filt Rate > 60; Glucose 113 mg/dL (65-110); Potassium 4.2 mmol/L (3.4-5.0); Sodium 125 mmol/L (137-145); Total Protein 8.0 g/dL (6.3-8.2)
[2025-01-28 13:49] LABS: Influenza A QL RT-PCR Negative (Negative); Influenza B QL RT-PCR Negative (Negative); RSV RNA, RT-PCR Negative (Negative); SARS-CoV-2 RNA PCR Negative (Negative)
[2025-01-28] MEDS: MECLIZINE HCL 25 MG TABLET PO (14:48)
[2025-01-28] MEDS: diazePAM INJ (*CRX) 10 MG/2 ML SYRINGE 2 MG IV PUSH (15:44)
--- NOTE | 2025-01-28 16:24 | ED_ITS ---
HPI - Weakness General Chief complaint: Weakness Stated complaint: weakness Time Seen by Provider: 01/28/25 13:13 History of Present Illness HPI Narrative: Patient is reporting that she feels terrible, G has history of anxiety and stress, is on Ativan for this, per son at bedside, has not been sleeping, has been very stressed and very anxious. Patient is reporting a sensation of gas, dizziness. Related Data Home Medications ?Medication ?Instructions ?Recorded ?Confirmed ?Last Taken ?Type THC/CBD cream topical 08/23/23 05/25/24 Un known History Allergies Allergy/AdvReac Type Severity Reaction Status Date / Time Cephalosporins Allergy Mild Unknown Verified 12/04/24 22:11 cephalexin Allergy Unknown Unknown Verified 12/04/24 22:11 penicillin G Allergy Unknown UNknown Verified 12/04/24 22:11 amoxicillin (From Augmentin) AdvReac Intermediate Nausea and Verified 12/04/24 22:11 Vomiting clavulanic acid (From AdvReac Intermediate Nausea and Verified 12/04/24 22:11 Augmentin) Vomiting clarithromycin AdvReac Unknown Unknown Verified 12/04/24 22:11 lisinopril AdvReac Unknown Unknown Verified 12/04/24 22:11 pravastatin AdvReac Unknown Unknown Verified 12/04/24 22:11 Review of Systems 2 Review of Systems: All systems reviewed & are unremarkable except as noted in HPI and below PMFSH Past Medical History Medical History Fibromyalgia Lower back pain Neck pain Bilateral carpal tunnel syndrome Peripheral neuropathy Surgical History Surgical History History of vaginal surgery Transvaginal taping 1998 History of hysterectomy with oophorectomy 1998 Family History Family History Father Acute myocardial infarction Diabetes mellitus Heart disease Other Breast cancer Sibling Carcinoma of colon Grandparent Cerebrovascular accident Other Depression Diabetes mellitus Mother Hypertension Other Asthma Social History Social History Smoking status: Never smoker Second hand tobacco smoke exposure: Yes Alcohol intake: never Substance use: never Substance use type: does not use Lack of Transportation: YES Lack of Food: Sometimes True Current Housing: I Have Housing Concerned About Future Housing: No Difficulty Paying Gas/Electric Bills: No Difficulty Paying for Meds: No Currently Unemployed: No Education: High School Diploma/GED Difficulty w/ Childcare or Family Care: No Living arrangements: with family Occupation/Education: retired Gender identity (if verbalized by the patient): Female Sexual Orientation (if Verbalized by the Patient): Straight or Heterosexual Spiritual care concerns: No Agree to blood products: Yes Exam 2 Narrative: EXAMINATION OF ORGAN SYSTEMS/BODY AREAS: Constitutional: Vital signs per nursing GENERAL: Appears quite anxious HEAD: Normal with no signs of head trauma. EYES: EOMI, conjunctiva normal ENT: Hearing grossly intact LUNGS: Nonlabored breathing. Clear to auscultation bilaterally HEART: [Regular rate and rhythm] ABD: [Soft], [nontender to palpation] EXT: Normal range of motion SKIN: [No rashes or lesions.] NEURO: [Alert. No gross focal sensory or strength deficits.] PSYCH: Anxious affect Course Vital Signs Vital signs: Vital Signs Temperature 97.6 F 01/28/25 12:47 Pulse Rate 86 01/28/25 12:47 Respiratory Rate 14 01/28/25 12:47 Blood Pressure 184/80 H 01/28/25 12:47 Pulse Oximetry 100 01/28/25 12:47 Oxygen Delivery Room Air 01/28/25 12:47 Temperature 97.6 F 01/28/25 17:16 Pulse Rate 85 01/28/25 18:45 Respiratory Rate 25 H 01/28/25 18:45 Blood Pressure 180/91 H 01/28/25 17:18 Pulse Oximetry 99 01/28/25 18:15 Oxygen Delivery Room Air 01/28/25 12:47 [facility] Narrative Medical decision making narrative: Patient with history of anxiety/panic attacks presenting here with symptoms consistent with panic attack according to triage nurse, she was initially hyperventilating and appeared extremely anxious. She has a difficult time explaining her symptoms other than feeling sick. On exam patient is anxious appearing but otherwise in no significant distress, she did have elevated blood pressure here but it is not more than her usual per review of her EMR. I will obtain EKG and chest xray, basic labs, CT brain as she is reporting dizziness. Chest x-ray on my independent interpretation does not show any acute abnormality, no pneumothorax or consolidation. EKG - 12-Lead: Performed at 1257. Interpreted by me. Sinus rhythm. Rate 61. Normal axis. KS-interval normal. QRS duration normal. QTc normal. No ST segment elevation or depression. T-wave normal. Impression: No EKG evidence of acute ischemia or dysrhythmia. Labs wnl. I did review EMR and noted she has been here similarly in past. Spoke with son at bedside who feels her anxiety is out of control; she takes Ativan as needed daily, her PCP is retiring and her new 1 has been talking about potentially taking her off of it, she is getting to the point where she is not able to sleep. After On reevaluation patient is feeling better, resting comfortably, vital signs stable. She hasn't seen a psychiatrist in years and at this point she seems to be suffering in her life from her symptoms. Agreeable to speaking with Crisis here; they are contacted. Patient on re-evaluation feels much better after talking to crisis, they have a plan now for her to follow-up with psychiatrist and get resources. Her repeat blood pressure is now 140/55, she is resting comfortably in no distress. Agreeable to outpatient management with return precautions. Differential Diagnosis Differential Diagnosis: anxiety attack; ACS; infection, dehydration Lab Data 01/28/25 13:14 01/28/25 13:14 Labs: Lab Results 01/28/25 01/28/25 01/28/25 Range/Units 13:10 13:14 13:22 WBC 6.0 (4.5-10.0) K/mm3 RBC 4.80 (4.2-5.4) M/mm3 Hgb 13.3 (12.0-15.0) g/dL Hct 39.3 (37.0-47.0) % MCV 81.9 (80-100) fl MCH 27.7 (26-34) pg MCHC 33.8 (32-36) g/dl RDW 12.1 (11.5-14.5) % Plt Count 284 (150-375) k/mm3 MPV 8.6 (7.4-10.4) fl Immature Gran % (Auto) 0.2 (0-0.5) % Neut % (Auto) 63.2 (45.5-73.1) % Lymph % (Auto) 21.1 (18.3-44.2) % Hall % (Auto) 10.9 H (2.6-8.5) % Eos % (Auto) 3.8 (0-4.4) % Baso % (Auto) 0.8 (0.2-1.2) % Lymph # (Auto) 1.26 (0.9-3.2) K/mm3 Hall # (Auto) 0.7 H (0.1-0.6) K/mm3 Eos # (Auto) 0.2 (0-0.3) K/mm3 Baso # (Auto) 0.1 (0.0-0.1) K/mm3 Abs Immat Gran (auto) 0.01 (0.00-0.031) K/mm3 Absolute Neuts (auto) 3.8 (1.3-6.7) K/mm3 Absolute Nucleated RBC 0.000 (0.0-0.012) K/mm3 Nucleated RBC % 0.0 (0.0-0.2) % Sodium 125 L (137-145) mmol/L Potassium 4.2 (3.4-5.0) mmol/L Chloride 95 L (98-107) mmol/L Carbon Dioxide 25 (22-30) mmol/L Anion Gap 5 (4-12) mmol/L BUN 9 D (7-17) mg/dL Creatinine 0.80 (0.7-1.0) mg/dL Estim Creat Clear Calc 34 ml/min Estimated GFR > 60 (59 - ) Glucose 113 H (65-110) mg/dL Calcium 9.3 (8.4-10.2) mg/dL Total Bilirubin 0.5 (0.2-1.3) mg/dL AST 33 (14-36) U/L ALT 20 (6-35) U/L Alkaline Phosphatase 66 (38-126) U/L Total Protein 8.0 (6.3-8.2) g/dL Albumin 4.4 (3.5-5.1) g/dL Urine Color Yellow (Yellow) Urine Appearance Clear (Clear) Urine pH 7.0 (5.0-9.0) Ur Specific [place] 1.003 (1.001-1.035) Urine Protein Negative (Negative) mg/dL Urine Glucose (UA) Negative (Negative) mg/dL Urine Ketones Negative (Negative) mg/dL Ur Blood (Man) 1+ H (Negative) Urine Nitrate Negative (Negative) Urine Bilirubin Negative (Negative) Urine Urobilinogen 0.2 (<2.0) mg/dL Leukocyte Esterase Rfl Trace H (Negative) AYSE/UL Urine RBC 0-2 (0-2) /hpf Urine WBC 0-5 (0-3) /hpf Ur Squamous Epith Cells None seen (Few) /hpf Urine Bacteria None seen /hpf Urine Casts 0-2 Influenza A (RT-PCR) Negative (Negative) Influenza B (RT-PCR) Negative (Negative) RSV (RT-PCR) Negative (Negative) SARS-CoV-2 RNA (RT-PCR) Negative (Negative) Imaging Data Radiologist's impression: ITS Impressions Chest X-Ray 01/28/25 14:14 Impression: No acute cardiopulmonary abnormality. Head CT 01/28/25 16:15 Impression: 1.No acute intracranial abnormality. Discharge Plan Discharge Clinical Impression: Anxiety, Essential (primary) hypertension Patient Disposition: Home Condition: Stable Instructions: Chronic Hypertension (ED), Anxiety (ED) Additional Instructions: Please follow up with your doctor and with the psychiatrist; you can always return for any further issues. Patient Language: Cook Islander Prescriptions: No Action escitalopram oxalate 10 mg tablet 10 mg PO DAILY Qty: 30 5RF gabapentin 300 mg capsule 300 mg PO BID Qty: 90 5RF THC/CBD cream topical losartan 50 mg tablet 100 mg PO DAILY Qty: 60 5RF fluticasone propionate [Flonase Allergy Relief] 50 mcg/actuation spray,suspension 2 spray intranasal DAILY Qty: 16 0RF Rx Instructions: administer into each nostril ondansetron 4 mg tablet,disintegrating 4 mg PO Q8H Qty: 14 0RF albuterol sulfate 90 mcg/actuation HFA aerosol inhaler 2 inh inhalation Q4H PRN (Reason: shortness of breath or wheezing) Qty: 6.7 3RF azelastine 0.05 % drops See Rx Instructions .ROUTE .COMPLEX Qty: 18 0RF Dose Instruction: INSTILL 1 DROP IN EACH EYE TWICE DAILY Rx Instructions: INSTILL 1 DROP IN EACH EYE TWICE DAILY clobetasol 0.05 % cream 1 applic topical BID Qty: 60 1RF lorazepam 0.5 mg tablet 0.5 mg PO TID PRN (Reason: anxiety) Qty: 90 4RF clonidine HCl 0.1 mg tablet 0.1 mg PO TID PRN (Reason: blood pressure over 170) Qty: 50 1RF atenolol 50 mg tablet 100 mg PO DAILY Qty: 180 1RF Follow-up/Referrals: UNKNOWN,DOCTOR [Primary Care Provider]
[2025-01-28] MEDS: GABAPENTIN 300 MG CAPSULE PO (17:46)
== END 2025-01-28 20:00 | disposition home or self-care (01) ==
PROVIDERS: Emergency Provider Emergency Medicine
DX: F41.9 Anxiety disorder, unspecified (principal); I10 Essential (primary) hypertension; Z20.822 Contact with and (suspected) exposure to COVID-19; M79.7 Fibromyalgia; G62.9 Polyneuropathy, unspecified; Z90.710 Acquired absence of both cervix and uterus; Z77.22 Contact with and (suspected) exposure to environmental tobacco smoke (acute) (chronic); Z79.899 Other long term (current) drug therapy; I45.10 Unspecified right bundle-branch block; I51.7 Cardiomegaly; R94.31 Abnormal electrocardiogram [ECG] [EKG]
CPT/HCPCS: 36415; 70450; 71046; 80053; 81001; 85025; 87637; 93005; 96361; 96374; 96375; 99284; A9270; J2405; J3360; J7120

== ENCOUNTER 2025-02-04 17:46 | Inpatient (IN) | payer MEDICARE, SELFPAY ==
--- NOTE | ~2025-02-04 | CT_ITS ---
EXAMINATION: CT abdomen pelvis w con DATE: 02/04/2025 20:20 INDICATION: Abdominal pain. Back pain. TECHNIQUE: Computed tomography (CT) of the abdomen and pelvis was performed with 100 mL Omnipaque-350 intravenous contrast. Automated exposure control and iterative reconstruction technique were employed. The dose-length product was 507.17 mGy-cm. COMPARISON: 12/02/2007 FINDINGS: Mild atelectasis at the right middle lobe and lingula. Heart size is normal. No pericardial or pleural effusion. Small sliding-type hiatal hernia. Numerous splenic calcifications and a a few hepatic calcifications consistent with old granulomatous disease. Gallbladder, pancreas and bilateral adrenal glands are normal. There is mild likely age-related bilateral renal atrophy. There are few tiny low-attenuation likely bilateral renal cysts. There is urothelial enhancement along the left ureter and renal pelvis suggestive of ascending urinary tract infection. No hydronephrosis. Bladder appears normal. Bowels including the appendix are normal. No free intraperitoneal gas or fluid. No pathologically enlarged abdominal or pelvic lymphadenopathy. Severe spondylosis in the mid to lower lumbar spine. IMPRESSION: 1. Urothelial enhancement on the left renal collecting system and ureter concerning for ascending urinary tract infection. Correlate with urinalysis. 2. Small sliding-type hiatal hernia. Reviewed, dictated and finalized at location A. ING CARE ATTENDANT IMPRESSION: 1. Urothelial enhancement on the left renal collecting system and ureter concer jose for ascending urinary tract infection. Correlate with urinalysis. 2. Small sliding-type hiatal hernia.
--- OUTSIDE RECORDS SUMMARY | 2025-02-04 15:45 | XMS_ITS | Encounter Summary ---
Author Organization [facility] Healthcare Address [address] [place] [id number] Care Team Providers Care Hospice Care Sales Consultant Name Role Phone Carissa Moreno MD Primary Care Provider [phone] Reason for Visit * Reason Comments bladder pain Burning with urinati on, gas, nausea. Encounter Details Date Type Department Care Team (Late st Contact Info) Description 02/04/2025 3:45 PM FRENCH EDGE OPERATOR Office Visit [facility] at [address] [address] Dulce Garber NP [address] [place] [address] [address] [place] [address] Acute cystitis with hematuria (Primary Dx); Weakness; Abdominal pain of multiple sites; Lightheadedness; Elevated blood pressure reading in office with diagnosis of hypertension; Flank pain, bilateral Social History Tobacco Use Types Packs/Day Years Used Date Smoking Tobacco: Former Cigarettes Smokeless Tobacco: Never Alcohol Use Standard Drinks/Week Comments Never 0 (1 standard drink = 0.6 oz pur e alcohol) PHQ-2 Answer Date Recorded PHQ-2 Total Score (If total score is 3 or more points, staff should administer the PHQ-9) 4 01/25/2025 PHQ-9 Answer Date Recorded PHQ-9 Total Score 9 01/25/2025 AUDIT-C Answer Date Recorded Q1: How often [...] on file Legal Sex Female 2:08 AM FRENCH EDGE OPERATOR Gender Identity Not on file Sexual Orientation Not on file documented as of this encounter Last Filed Vital Signs Vital Sign Reading Time Taken Comments Blood Pressure 174/84 02/04/2025 3:33 PM FRENCH EDGE OPERATOR Pulse 60 02/04/2025 3:27 PM FRENCH EDGE OPERATOR Temperature 36.6 C (97.9 F) 02/04/2025 3:27 PM FRENCH EDGE OPERATOR Respiratory Rate 12 02/04/2025 3:27 PM FRENCH EDGE OPERATOR Oxygen Saturation 98% 02/04/2025 3:27 PM FRENCH EDGE OPERATOR Inhaled Oxygen Concentration - - Weight 57.6 kg (127 lb) 02/04/2025 3:27 PM FRENCH EDGE OPERATOR Height 152.4 cm (5') 02/04/2025 3:27 PM FRENCH EDGE OPERATOR Body Mass Index 24.8 02/04/2025 3:27 PM FRENCH EDGE OPERATOR documented in this encounter Patient Instructions * Patient Instructions* Dulce Garber, WINE CELLAR WORKER - 02/04/2025 3:45 PM FRENCH EDGE OPERATOR Results for orders placed or performed in visit on 02/04/25 POCT urinalysis dipstick Collection Time: 02/04/25 4:09 PM Result Value Ref Range Color, Urine, POC Light Yellow Clarity, ur, POC Cloudy (A) Clear Glucose, ur, POC Negative Negative Bilirubin, ur, POC Negative Negative Ketones, ur, POC Negative Negative Specific [place], POC 1.010 1.003 - 1.030 Blood, ur, POC Moderate (A) Negative pH, ur, POC 7.0 5.0 - 8.0 Protein, ur, POC Negative Negative Urobilinogen, urine, POC 0.2 0.2 - 1.0 mg/dL Nitrite, ur, POC Negative Negative Leukocytes, ur, POC Moderate (A) Negative Lot Number [id number] --Patient with a 1 week history of abdominal pain, weakness, fatigue and elevated blood pressures. Patient has had EMS at her house twice this week. Patient has been in the ER once and released home.Patient is still not feeling well. Urine in office is concerning for Urinary tract infection, I am concerned with her systemic symptoms of generalized weakness, abdominal pain, episodes of fainting; referring patient to the ER for further workup and potential need of further kidney testing to rule out pyelonephritis. Discussed with patient potential need for blood work, IV fluids, or even IV antibiotics. Patient verbalized understanding and is with her family member who will take her to the ER CH EDGE OPERATOR documented in this encounter Progress Notes * Dulce Garber NP - 02/04/2025 3:45 PM CST Images from the original note were not included. Subjective/Objective Patient ID: Rebeka Gomez is a 79 y.o. female. This patient has verbally consented to recording this visit in order to utilize AI technology in generating this note. Chief Complaint bladder pain (Burning with urination, gas, nausea. /) History of Present Illness Rebeka Gomez is an 79 year old female who presents with abdominal pain and weakness. She experiences abdominal pain described as a burning sensation in the bladder area, which was particularly intense this morning. The pain is sometimes located in the lower abdomen and upper abdomen and is intermittent. No vomiting or diarrhea. She has been feeling weak and faint, with a notable episode last Wednesday when her blood pressure collin significantly, causing her to nearly pass out. Her son had to catch her, and EMS was called. She spent seven hours in the ER at that time. She feels wobbly and lacking energy, having spent all day in bed yesterday due to fatigue. Her blood pressure has been elevated, with a reading of 173/83 today. She notes that when her bloodpressure is high, she feels weak and lightheaded, as experienced last Wednesday. She has been trying to recover throughout the week, with EMS visiting again on Wednesday to check herblood pressure. She felt progressively better until recently, when symptoms worsened again, prompting her to call the doctor's office yesterday. No chest pain, difficulty breathing, vomiting, or diarrhea. She reports generalized weakness and abdominal pain. Review of Systems All other systems reviewed and are negative. Physical Exam VITALS: BP- 173/83 ABDOMEN: Tender to palpation. NEUROLOGICAL: Good strength bilaterally. Cranial nerves II-XII intact. Physical Exam Vitals reviewed. Constitutional: General: She is not in acute distress. Appearance: Normal appearance. She is ill-appearing. Comments: Patient with generalized weakness, patient needed help getting up into the bathroom and from the toilet back to the wheelchair due to weakness (at baseline this has not patient has normal presentation as she normally can walk around and do for herself) HENT: Head: Normocephalic. Cardiovascular: Rate and Rhythm: Normal rate and regular rhythm. Pulmonary: Effort: Pulmonary effort is normal. Breath sounds: Normal breath sounds. Abdominal: General: Bowel sounds are normal. There is no distension. Palpations: Abdomen is soft. Tenderness: There is generalized abdominal tenderness. There is right CVA tenderness and left CVA tenderness. There is no guarding. Skin: General: Skin is warm. Neurological: Mental Status: She is alert and oriented to person, place, and time. Psychiatric: Behavior: Behavior is cooperative. Vitals: 02/04/25 1527 02/04/25 1528 02/04/25 1533 BP: (!) 172/87 (!) 172/81 (!) 174/84 Pulse: 60 Resp: 12 Temp: 36.6 ??C (97.9 ??F) TempSrc: Continuous Temporal Temperature SpO2: 98% Weight: 57.6 kg (127 lb) Height: 152.4 cm (5') No results found. Past Medical History: Diagnosis Date Depression Hypertension Current Outpatient Medications: albuterol HFA (PROVENTIL HFA,VENTOLIN HFA,PROAIR HFA) 90 mcg/actuation inhaler, Q4H, Disp: , Rfl: atenoloL (TENORMIN) 50 mg tablet, Take 2 tablets (100 mg total) by mouth nightly, Disp: , Rfl: famotidine 20 mg tablet, Take 1 tablet (20 mg total) by mouth 2 (two) times a day, Disp: 60 tablet,Rfl: 11 fluticasone propionate (FLONASE) 50 mcg/actuation nasal spray, , Disp: , Rfl: gabapentin (NEURONTIN) 300 mg capsule, Take 1 capsule (300 mg total) by mouth 3 (three) times a day, Disp: , Rfl: LORazepam (ATIVAN) 0.5 mg tablet, Take by mouth 3 (three) times a day as needed, Disp: , Rfl: losartan (COZAAR) 50 mg tablet, Take 2 tablets (100 mg total) by mouth daily, Disp: , Rfl: spironolactone (ALDACTONE) 25 mg tablet, Take 1 tablet (25 mg total) by mouth daily, Disp: 90 tablet, Rfl: 3 Allergies Allergen Reactions Clarithromycin Unknown Lisinopril Unknown Pravastatin Unknown Amoxicillin-Pot Clavulanate Diarrhea and Nausea only Cephalosporins Unknown Social History Tobacco Use Smoking status: Former Types: Cigarettes Smokeless tobacco: Never Substance and Sexual Activity Drug use: Not on file Sexual activity: Not on file Alcohol Use: Not At Risk (12/12/2024) AUDIT-C Frequency of Alcohol Consumption: Never Average Number of Drinks: Patient does not drink Frequency of Binge Drinking: Never Past Surgical History: Procedure Laterality Date BLADDER SUSPENSION Assessment/Plan 1. Weakness 2. Abdominal pain of multiple sites 3. Acute cystitis with hematuria (Primary) - POCT urinalysis dipstick - Urine culture Urine, clean voided; Future 4. Lightheadedness 5. Elevated blood pressure reading in office with diagnosis of hypertension 6. Flank pain, bilateral Results Recent Results (from the past 4 hours) POCT urinalysis dipstick Collection Time: 02/04/25 4:09 PM Result Value Ref Range Color, Urine, POC Light Yellow Clarity, ur, POC Cloudy (A) Clear Glucose, ur, POC Negative Negative Bilirubin, ur, POC Negative Negative Ketones, ur, POC Negative Negative Specific [place], POC 1.010 1.003 - 1.030 Blood, ur, POC Moderate (A) Negative pH, ur, POC 7.0 5.0 - 8.0 Protein, ur, POC Negative Negative Urobilinogen, urine, POC 0.2 0.2 - 1.0 mg/dL Nitrite, ur, POC Negative Negative Leukocytes, ur, POC Moderate (A) Negative Lot Number [id number] Assessment & Plan Urinary tract infection Suspected UTI with urinary symptoms and abdominal pain. Risk of progression to sepsis due to weakness and elevated blood pressure. - Performed urine test to confirm UTI. - Recommended ER visit for potential IV antibiotics if UTI is confirmed. Hypertension Elevated blood pressure at 173/83 causing weakness and lightheadedness. Limited treatment options in clinic. - Recommended ER visit for further evaluation and management of hypertension. Generalized weakness Generalized weakness without focal neurological deficits. Possible causes include UTI, hypertension, or systemic illness. - Recommended ER visit for comprehensive evaluation of weakness. Education --GO TO ER now to further assess symptoms and rule out neurological etiology, pyelonephritis, and acute abdomen. Patient verbalized understanding. Family member with patient and will take her to the ER Disposition Treatment plan including expectations, follow up, and return precautions discussed with patient/parent, verbalizes understanding. Medication dosage, use, and potential adverse reactions discussed with patient/parent. Advised to follow up with PCP if symptoms do not resolve as expected or sooner if condition worsens. Signs/symptoms warranting ER evaluation reviewed. Patient and/or guardian was given an opportunity to ask questions, questions answered. Dulce Garber NP This office note has been partially dictated using [employer] software, and as a result portions of the record may have been created with this software. Occasional wrong-word or '[id number]' substitutions may have occurred due to the inherent limitations of voice recognition software. Read the chartcarefully and recognize, using context, where substitutions have occurred. Cosigned by Asher Gill MD at 02/04/2025 5:21 PM FRENCH EDGE OPERATOR CH EDGE OPERATOR CH EDGE OPERATOR documented in this encounter Miscellaneous Notes * Addendum Note - Chuck Garzon MA - 02/04/2025 3:45 PM CSTAddended by: CHUCK GARZON on: 02/04/2025 04:29 PM Modules accepted: Orders CH EDGE OPERATOR documented in this encounter Plan of Treatment Not on file documented as of this encounter Procedures Procedure Name Priority Date/Time Associated Diagnosis Comments POCT URINALYSIS DIPSTICK Routine 02/04/2025 4:09 PM FRENCH EDGE OPERATOR Acute cystitis with hematuria documented in this encounter Results * (ABNORMAL) POCT urinalysis dipstick (02/04/2025 4:09 PM FRENCH EDGE OPERATOR) Color, Urine, POC Light Yellow Clarity, ur, POC Cloudy(A) Clear Glucose, ur, POC Negative Negative Bilirubin, ur, POC Negative Negative Ketones, ur, POC Negative Negative Specific [place], POC 1.010 1.003 - 1.030 Blood, ur, POC Moderate(A) Negative pH, ur, POC 7.0 5.0 - 8.0 Protein, ur, POC Negative Negative Urobilinogen, urine, POC 0.2 0.2 - 1.0 mg/dL Nitrite, ur, POC Negative Negative Leukocytes, ur, POC Moderate(A) Negative Lot Number [id number] Urine 02/04/2025 4:09 PM FRENCH EDGE OPERATOR Dulce Garber WINE CELLAR WORKER POINT OF CARE TEST ORDERABLES Final Result documented in this encounter Visit Diagnoses Diagnosis Acute cystitis with hematuria- Primary Weakness Other malaise and fatigue Abdominal pain of multiple sites Lightheadedness Dizziness and giddiness Elevated blood pressure reading in office with diagnosis of hypertension Flank pain, bilateral documented in this encounter Care Teams Hospice Care Sales Consultant Relationship Specialty Start Date End Date Carissa Moreno MD [address] [facility] [address] [place] [address] PCP - General Family Medicine 12/12/24 documented as of this encounter
[2025-02-04 17:56] VITALS: BP 190/67; PULSE 65; RESP 18; TEMP 36.5; O2SAT 100
[2025-02-04 18:43] LABS: Hematocrit 39.4 % (37.0-47.0); Hemoglobin 13.3 g/dL (12.0-15.0); Immature Granulocyte Percent A 0.4 % (0-0.5); Lymphocytes Absolute Auto 1.49 K/mm3 (0.9-3.2); Mean Corpuscular HGB Conc 33.8 g/dl (32-36); Mean Corpuscular Hemoglobin 27.8 pg (26-34); Mean Corpuscular Volume 82.3 fl (80-100); Nucleated Red Blood Cells Absolute Auto 0.000 K/mm3 (0.0-0.012); Nucleated Red Blood Cells Perc 0.0 % (0.0-0.2); Platelet Count Result 288 k/mm3 (150-375); Red Blood Count 4.79 M/mm3 (4.2-5.4); White Blood Count 11.4 K/mm3 (4.5-10.0)
[2025-02-04 18:53] LABS: Alanine Aminotransferase 18 U/L (6-35); Albumin Level 4.5 g/dL (3.5-5.1); Alkaline Phosphatase 64 U/L (38-126); Anion Gap 7 mmol/L (4-12); Aspartate Amino Transferase 31 U/L (14-36); Bilirubin,Total 0.5 mg/dL (0.2-1.3); Blood Urea Nitrogen 19 mg/dL (7-17); Calcium 9.5 mg/dL (8.4-10.2); Carbon Dioxide 26 mmol/L (22-30); Chloride 95 mmol/L (98-107); Estimated CRCL calculation 30 ml/min; Estimated Glomerular Filt Rate 58; Glucose 105 mg/dL (65-110); Lipase 85 U/L (23-300); Potassium 4.5 mmol/L (3.4-5.0); Sodium 128 mmol/L (137-145); Total Protein 8.3 g/dL (6.3-8.2)
--- OUTSIDE RECORDS SUMMARY | 2025-02-04 19:09 | XMS_ITS | Clinical Summary ---
Author Organization [facility] Address [address] [place] [id number] Care Team Providers Care Visor Installer Name Role Phone Carissa Moreno MD Primary Care Provider [phone] [phone] Allergies Active Allergy Reactions Criticality Noted Date [...] (100 mg total) by mouth daily Active spironolactone (ALDACTONE) 25 mg tabletIndications :Essential (primary) hypertension Take 1 tablet (25 mg total) by mouth daily 90 tablet 3 5 Active famotidine 20 mg tabletIndications :Gastroesophageal reflux disease without esophagitis Take 1 tablet (20 mg total) by mouth 2 (two) times a day 60 tablet 11 5 01/26/20 26 Active Active Problems Problem Noted Date Diagnosed Date Severe major depressive disorder 12/19/2024 Assessment & Plan (12/19/2024 11:58 AM SHOEMAKING CUTTER): Chronic, uncontrolled. PHQ -9 score of 21 [...] Essential (primary) hypertension 10/08/2024 Assessment & Plan (01/25/2025 2:04 PM SHOEMAKING CUTTER): Chronic, not at goal. BP 154/68 Continue atenolol 100 mg nightly Continue losartan 100 mg daily Start Spironolactone 25 mg daily Follow up on Orders: spironolactone (ALDACTONE) 25 mg tablet; Take 1 tablet (25 mg total) by mouth daily Assessment & Plan (12/19/2024 11:58 AM SHOEMAKING CUTTER): Chronic, not at goal. BP 148/72, goal [...] Encounters Date Type Department Care Team Description 02/04/2025 3:45 PM SHOEMAKING CUTTER Office Visit [facility] Care at [address] [phone] Dulce Garber NP Acute cystitis with hematuria (Primary Dx); Weakness; Abdominal pain of multiple sites; Lightheadedness; Elevated blood pressure reading in office with diagnosis of hypertension; Flank pain, bilateral 02/03/2025 Nurse Triage [facility] Primary Care at [address] [phone] Carissa Moreno MD 01/31/2025 Nurse Triage [facility] Care at [address] [phone] Carissa Moreno MD 01/25/2025 1:00 PM SHOEMAKING CUTTER Office Visit [facility] Care at [address] [phone] Carissa Moreno MD Essential (primary) hypertension (Primary Dx); Gastroesophageal reflux disease without esophagitis 01/19/2025 Nurse Triage [facility] Care at [address] [phone] Carissa Moreno MD 01/15/2025 Telephone [facility] Primary Care at [address] [phone] Carissa Moreno MD Medical Question/Miscellaneous 12/29/2024 Nurse Triage [facility] Primary Care at [address] [phone] Carissa Schneider MD 12/18/2024 Nurse Triage [facility] Primary Care at [address] [phone] Carissa Rose MD 12/13/2024 Telephone [facility] Primary Care at [address] [phone] Carissa Rose MD Medication Request 12/12/2024 2:30 PM CDT Office Visit [facility] Primary Care at [address] [phone] Carissa Moreno MD Essential (primary) hypertension (Primary Dx); Severe major depressive disorder (HCC) from Last 3 Months Immunizations Immunization Administration Dates Next Due Influenza, Unspecified 12/12/2024(Deferr ed: Patient Refused),11/16/2023(Deferred: Patient Refused) Pneumococcal Polysaccharide PPV23 04/02/2012 Surgical History Surgery [...] on file Legal Sex Female 2:08 AM SHOEMAKING CUTTER Gender Identity Not on file Sexual Orientation Not on file Last Filed Vital Signs Vital Sign Reading Time Taken Comments Blood Pressure 174/84 02/04/2025 3:33 PM SHOEMAKING CUTTER Pulse 60 02/04/2025 3:27 PM SHOEMAKING CUTTER Temperature 36.6 C (97.9 F) 02/04/2025 3:27 PM SHOEMAKING CUTTER Respiratory Rate 12 02/04/2025 3:27 PM SHOEMAKING CUTTER Oxygen Saturation 98% 02/04/2025 3:27 PM SHOEMAKING CUTTER Inhaled Oxygen Concentration - - Weight 57.6 kg (127 lb) 02/04/2025 3:27 PM SHOEMAKING CUTTER Height 152.4 cm (5') 02/04/2025 3:27 PM SHOEMAKING CUTTER Body Mass Index 24.8 02/04/2025 3:27 PM SHOEMAKING CUTTER Plan of Treatment Health Maintenance Due Date [...] declined, but will receive in the future) Fall Risk Assessment 12/12/2025 12/12/2024 Hepatitis B Screening 12/12/2025 Postpo karma from 04[birth year]28/1963 (Patient declined, but will receive in the future) Pneumococcal vaccine 65+ (2 of 2 - PCV) 12/12/2025 04/02/2012 Postponed from 04/02/2013 (Patient declined, but will receive in the future) Zoster Vaccine (1 of 2) 12/12/2025 Post poned from 04/28/1993 (Patient declined, but will receive in the future) Depression Screening 01/25/2026 01/25/2025, 01/25/2025, 12/12/2024, Additional history exists Procedures Procedure Name Priority Date/Time Associated Diagnosis Comments POCT URINALYSIS DIPSTICK Routine 02/04/2025 4:09 PM SHOEMAKING CUTTER Acute cystitis with hematuria from Last 3 Months Results * (ABNORMAL) POCT urinalysis dipstick (02/04/2025 4:09 PM SHOEMAKING CUTTER) Color, Urine, POC Light Yellow Clarity, ur, POC Cloudy(A) Clear Glucose, ur, POC Negative Negative Bilirubin, ur, POC Negative Negative Ketones, ur, POC Negative Negative Specific Buchanan, POC 1.010 1.003 - 1.030 Blood, ur, POC Moderate(A) Negative pH, ur, POC 7.0 5.0 - 8.0 Protein, ur, POC Negative Negative Urobilinogen, urine, POC 0.2 0.2 - 1.0 mg/dL Nitrite, ur, POC Negative Negative Leukocytes, ur, POC Moderate(A) Negative Lot Number [id number] Urine 02/04/2025 4:09 PM SHOEMAKING CUTTER Dulce Garber GLUE JOINTER OPERATOR POINT OF CARE TEST ORDERABLES Final Result from Last [address] [place] [address] [place] [id number] [employer] P[employer] Care Teams Visor Installer Relationship Specialty Start Date End Date Carissa Moreno MD [address] [facility] [address] [place] [id number] PCP - General Family Medicine 12/12/24
--- OUTSIDE RECORDS SUMMARY | 2025-02-04 19:09 | XMS_ITS | Encounter Summary ---
Author Organization [facility] Healthcare Address [address] [place] [address] Care Team Providers Care Civil Drafting Technician Name Role Phone Carissa Moreno MD Primary Care Provider [phone] Reason for Visit * Reason Onset Date Comments Medical Question/Miscellaneous 01/15/2025 Encounter Details Date Type Department Care Team (Late st Contact Info) Description 01/15/2025 Telephone [facility] Primary Care at [address] [phone] Carissa Moreno MD [address] [place] [address] [address] [place] [address] Medical Question/Miscellaneous Social History Tobacco Use Types Packs/Day Years [...] file Legal Sex Female 2:08 AM DIRECTOR CLINICAL RESEARCH Gender Identity Not on file Sexual Orientation Not on file documented as of this encounter Miscellaneous Notes * Telephone Encounter - Tierra Burns MA - 01/15/2025 4:03 PM CST Medical Question/Miscellaneous Caller???s Concern: Patient apologized for missing last appointment 01.09 as she needs a reminder from the office when she reschedules. She does not always remember. Does message need to be routed? No CTOR CLINICAL RESEARCH documented in this encounter Plan of Treatment Not on file documented as of this encounter Visit Diagnoses Not on filedocumented in this encounter Care Teams Civil Drafting Technician Relationship Specialty Start Date End Date Carissa Moreno MD [address] [place] [address] [address] PCP - General Family Medicine 12/12/24 documented as of this encounter
--- OUTSIDE RECORDS SUMMARY | 2025-02-04 19:09 | XMS_ITS | Encounter Summary ---
Author Organization [facility] Healthcare Address [address] [place] [address] Care Team Providers Care Cloth Measurer Name Role Phone Carissa Moreno MD Primary Care Provider [phone] Reason for Visit * Reason Onset Date Comments Abdominal Pain 02/03/2025 Encounter Details Date Type Department Care Team (Late st Contact Info) Description 02/03/2025 Nurse Triage [facility] Primary Care at [place] [id number] [place] [phone] Carissa Moreno MD [address] [place] [address] [address] [place] [address] Social History Tobacco Use Types Packs/Day Years [...] on file Legal Sex Female 2:08 AM EDITORIAL DIRECTOR Gender Identity Not on file Sexual Orientation Not on file documented as of this encounter Miscellaneous Notes * Telephone Encounter - Mert Florecita Kassidy, RN - 02/03/2025 9:22 AM CST Reason for Conversation Abdominal Pain Background Pt calling to report abdominal pain and suspects she has a UTI. Pt also reports during conversationthat her blood pressure has been elevated recently. Pt had ER visit on 01/28 for HTN and fainting. Pt states she again had to call EMS on 01/30 for blood pressure and HR-pt refused EMS transport to ER. Pt sounds weak today and states she feels like she may pass out but then stated she did not feel like she would. Pt was advised to call EMS however pt declined stating she would take her medicationand call son over who lives 5 mins away to come and take her to ER. spare person offered to call son however pt declined. Pt advised spare person would complete a call back in 5 mins to follow up on status. Pt verbalized understanding and agreement. Call back placed to patient who states that her son had arrived and she was feeling better. Pt states blood pressure is 159/66. Pt will take her blood pressure medication, eat breakfast and go to [facility] today as a walk-in. Pt declined a scheduled appt. Pt advised to call back with new or worsening symptoms. Pt verbalized understanding and agreement. Disposition See Physician Within 4 Hours (or PCP Triage) Reason for Disposition [1] MILD-MODERATE pain AND [2] constant AND [3] present > 2 hours 1. LOCATION: Where does it hurt? Lower center of abd 2. RADIATION: Does the pain shoot anywhere else? (e.g., chest, back) Chest and back pain pain has been ongoing for over a month-has not worsened from baseline. 3. ONSET: When did the pain begin? (e.g., minutes, hours or days ago) Approx week 4. SUDDEN: Gradual or sudden onset? Gradual 5. PATTERN Does the pain come and go, or is it constant? Intermittent 6. SEVERITY: How bad is the pain? (e.g., Scale 1-10; mild, moderate, or severe) Moderate lasting several minutes 7. RECURRENT SYMPTOM: Have you ever had this type of stomach pain before? If Yes, ask: When was the last time? and What happened that time? Yes, and it was a bladder infection 8. CAUSE: What do you think is causing the stomach pain? (e.g., gallstones, recent abdominal surgery) UTI 9. RELIEVING/AGGRAVATING FACTORS: What makes it better or worse? (e.g., antacids, bending or twisting motion, bowel movement) Hurts more when bladder 10. OTHER SYMPTOMS: Do you have any other symptoms? (e.g., back pain, diarrhea, fever, urination pain, vomiting) Frequency and urgency, fatigue and nausea 11. : Is there any chance you are ? When was your last menstrual period? N/A No Additional Information on file. Protocols Used Abdominal Pain - [id number] ORIAL DIRECTOR * Telephone Encounter - Florecita Painting RN - 02/03/2025 9:09 AM CST Regarding: Moderate bladder pain lethargic, nausea ----- Message from Anjali Thayer sent at 02/03/2025 9:07 AM EDITORIAL DIRECTOR ----- Chief Concern: Moderate bladder pain lethargic, nausea Duration of symptoms: Over a week Call back number: [phone] Additional comments: Believes she has bladder infection ORIAL DIRECTOR documented in this encounter Plan of Treatment Not on file documented as of this encounter Visit Diagnoses Not on filedocumented in this encounter Care Teams Cloth Measurer Relationship Specialty Start Date End Date Carissa Moreno MD [facility] [address] [address] PCP - General Family Medicine 12/12/24 documented as of this encounter
--- OUTSIDE RECORDS SUMMARY | 2025-02-04 19:09 | XMS_ITS | Encounter Summary ---
Author Organization [facility] Healthcare Address [address] [place] [address] Care Team Providers Care Automation Controls Expert Name Role Phone Carissa Moreno MD Primary Care Provider [phone] Reason for Visit * Reason Onset Date Comments Hypertension 01/19/2025 Encounter Details Date Type Department Care Team (Late st Contact Info) Description 01/19/2025 Nurse Triage [facility] Primary Care at [place] [id number] [place] [address] Carissa Moreno MD [address] [place] [address] [address] [place] [address] Social History Tobacco Use Types [...] on file Legal Sex Female 2:08 AM APPRENTICE CARPENTER Gender Identity Not on file Sexual Orientation Not on file documented as of this encounter Miscellaneous Notes * Telephone Encounter - Menges, Radha, MA - 01/19/2025 4:45 PM CST I called and spoke with Rebeka, she said she feels very tired but other than that hasn't had any other symptoms. Her son hasn't come home from work yet to check her BP today but she will be trying to keep her mind off of her stressors and keeping a healthy diet. She said she will see if one of herneighbors can bring her earlier next week to see one of our management rep since Dr. Moreno does not have any openings until her original appointment date. I let her know if she does start to feel bad to make sure she goes to the ER for evaluation. Patient agreed with plan and will let us know if she can comein sooner. ENTICE CARPENTER * Telephone Encounter - Yasemin Chao RN - 01/19/2025 2:57 PM APPRENTICE CARPENTER Reason for Conversation Hypertension Background Pt has appt scheduled 01/25/25 in office. Pt. calling to what she can do to stabilize BP until office appt. Pt is anxious about BP on top of dealing with depression/stress, especially relating to chioma's well being. BP reading this am was 171/71. Patient unable to do BP on her own, states her son comes over and does BP readings for her. Pt states she was 180s on the systolic the other day but though maybe it was because she was vacuuming. Son is not with patient and this time, unable to get current BP reading. Pt states her normal readings are in the 160s. Patient is taking 100mg losartan in the am and 100mg atenolol in the pm and reports she has not missed any doses. RN offered a 0700 appt for 01/22/25. Pt declined as she has to have a ride and her ride does not do that early of mornings. RN does not see any other appts able to schedule within disposition timeframe. Routing to the office to determine if earlier appt available for patient. Care Advice: Eat healthy including fresh fruits and vegetables, fiber, low-fat dairy products, low salt. Discussed fruits/veggies that would be less gas producing. Encouraged patient to exercise, even if taking 5 minute walks within her home a few times throughout the day. Advised stress reducing activities such as watching a t.v. show, doing puzzles, word searches, reading, or calling a friend. Encouraged patient to look into a program in her city where they might come and pick her up to take her to socialize within the community. Education: Call if worsens, new symptoms develop, or questions/concern. Disposition See Within 3 Days in Office Reason for Disposition Systolic BP >= 160 OR Diastolic >= 100 Protocols Used Blood Pressure - [id number] ENTICE CARPENTER * Telephone Encounter - Yasemin Chao RN - 01/19/2025 2:24 PM APPRENTICE CARPENTER Regarding: Elevated Blood Pressure ----- Message from Nithin Gill sent at 01/19/2025 2:22 PM APPRENTICE CARPENTER ----- Symptom Based Call Chief Complaint(s): Elevated Blood Pressure Duration: Today What type of symptom(s) is the patient experiencing? Red Flag. Is the patient concerned they are experiencing a medical emergency requiring an ambulance? No Additional Comments: Patient states she has an upcoming appt with PCP next week however is asking what she can do in the mean time to stabilize her blood pressure. Patient expressed she is anxious about her blood pressure on top of having depression. Patients son took her blood pressure this morning and the systolic read 182 but she was not told the bottom number. Patient denies chest pains, sob,or any additional symptoms besides elevated BP and anxiousness. Does message need to be routed? Yes-Action Needed ENTICE CARPENTER documented in this encounter Plan of Treatment Not on file documented as of this encounter Visit Diagnoses Not on filedocumented in this encounter Care Teams Automation Controls Expert Relationship Specialty Start Date End Date Carissa Moreno MD [address] [address] PCP - General Family Medicine 12/12/24 documented as of this encounter
[2025-02-04 19:22] VITALS: BP 193/69; PULSE 65; RESP 12; TEMP 36.7; O2SAT 100
[2025-02-04] MEDS: SODIUM CHLORIDE 0.9% IV 500 ML 999 ML IV CONT (19:28)
[2025-02-04 19:51] LABS: Add Urine Microscopic? YES; Appearance Urine Clear (Clear); Glucose Urine UA Negative (Negative); Leukocyte Esterase Ur 3+ LEU/UL (Negative); Nitrate Urine Negative (Negative); Non Pathogenic Casts 0-2; Specific Grav Ur 1.005 (1.001-1.035)
--- NOTE | 2025-02-04 19:55 | ECG_ITS ---
Test Date: 2025-02-04 20:29:24 Measurements Intervals [place] Rate: 83 P: 58 NJ: 150 QRS: -25 QRSD: 122 T: 70 QT: 396 QTc: 467 Interpretive Statements SINUS RHYTHM RIGHT BUNDLE BRANCH BLOCK LEFT VENTRICULAR HYPERTROPHY WITH ST-T CHANGE HIGH LATERAL INFARCT, AGE INDETERMINATE CANNOT R/O SEPTAL INFARCT, AGE INDETERMINATE BASELINE ARTIFACT- I, II, III, AVR, AVL, AVF, V1-V6 ABNORMAL ECG Compared to ECG 01/28/2025 12:57:50 HEART RATE HAS INCREASED Electronically Signed On 02-05-2025 06:53:07 RECREATIONAL RESORT MANAGER by Brian Amos D.O.
--- NOTE | 2025-02-04 20:07 | ED_ITS ---
HPI - Female Genitourinary General Chief complaint: Urogenital-Female Stated complaint: UTI Time Seen by Provider: 02/04/25 18:34 Source: patient Mode of arrival: ambulatory Limitations: no limitations History of Present Illness HPI Narrative: This is a 79 year old female that presents to the ER for lower abdominal pain. Ongoing over the last couple of days. Reports low back pain. Reports dysuria, generalized weakness. Related Data Home Medications ?Medication ?Instructions ?Recorded ?Confirmed ?Last Taken ?Type THC/CBD cream topical 08/23/23 05/25/24 Un known History Allergies Allergy/AdvReac Type Severity Reaction Status Date / Time Cephalosporins Allergy Mild Unknown Verified 02/05/25 01:49 cephalexin Allergy Unknown Unknown Verified 02/05/25 01:49 penicillin G Allergy Unknown UNknown Verified 02/05/25 01:49 amoxicillin (From Augmentin) AdvReac Intermediate Nausea and Verified 02/05/25 01:49 Vomiting clavulanic acid (From AdvReac Intermediate Nausea and Verified 02/05/25 01:49 Augmentin) Vomiting clarithromycin AdvReac Unknown Unknown Verified 02/05/25 01:49 lisinopril AdvReac Unknown Unknown Verified 02/05/25 01:49 pravastatin AdvReac Unknown Unknown Verified 02/05/25 01:49 Review of Systems 2 Review of Systems: All systems reviewed & are unremarkable except as noted in HPI and below PMFSH Past Medical History Medical History Fibromyalgia Lower back pain Neck pain Bilateral carpal tunnel syndrome Peripheral neuropathy Surgical History Surgical History History of vaginal surgery Transvaginal taping 1998 History of hysterectomy with oophorectomy 1998 Family History Family History Father Acute myocardial infarction Diabetes mellitus Heart disease Other Breast cancer Sibling Carcinoma of colon Grandparent Cerebrovascular accident Other Depression Diabetes mellitus Mother Hypertension Other Asthma Social History Social History Smoking status: Never smoker Second hand tobacco smoke exposure: Yes Alcohol intake: never Substance use: never Substance use type: does not use Lack of Transportation: YES Lack of Food: Sometimes True Current Housing: I Have Housing Concerned About Future Housing: No Difficulty Paying Gas/Electric Bills: No Difficulty Paying for Meds: No Currently Unemployed: No Education: High School Diploma/GED Difficulty w/ Childcare or Family Care: No Living arrangements: with family Occupation/Education: retired Gender identity (if verbalized by the patient): Female Sexual Orientation (if Verbalized by the Patient): Straight or Heterosexual Spiritual care concerns: No Agree to blood products: Yes Exam 2 Narrative: GENERAL: Elderly, well-nourished, and in no acute distress. HEAD: Normocephalic, atraumatic. EYES: EOMI. ENT: Nares clear, no rhinorrhea or epistaxis. Mucous membranes moist. Oropharynx without tonsillar hypertrophy exudate or other lesions. CHEST: Clear to auscultation. No respiratory distress. No wheezes rales or rhonchi HEART: Regular rate and rhythm. No murmur heard. Normal peripheral pulses. ABDOMEN: Soft, nontender, nondistended, normal active bowel sounds. EXTREMITIES: Normal range of motion. No edema. SKIN: Warm, dry, no rash. NEURO: No focal deficits. Alert and oriented x3. PSYCH: Normal mood and affect Course Vital Signs Vital signs: Vital Signs Temperature 97.7 F 02/04/25 17:56 Pulse Rate 65 02/04/25 17:56 Respiratory Rate 18 02/04/25 17:56 Blood Pressure 190/67 H 02/04/25 17:56 Pulse Oximetry 100 02/04/25 17:56 Oxygen Delivery Room Air 02/04/25 17:56 Temperature 96.7 F L 02/05/25 01:00 Pulse Rate 56 L 02/05/25 01:00 Respiratory Rate 16 02/05/25 01:00 Blood Pressure 122/60 02/05/25 01:00 Pulse Oximetry 98 02/05/25 01:00 Oxygen Delivery Room Air 02/04/25 17:56 [facility] MDM Narrative Medical decision making narrative: Patient presents to the emergency department for urinary symptoms, generalized weakness. She is afebrile and nontoxic appearing. Her vitals are stable. CBC with mild leukocytosis to 11.4. Metabolic panel with hyponatremia, which is chronic. Urine with evidence of infection. This was sent for culture. Patient started on IV antibiotics. CT abdomen and pelvis showing ascending urinary tract infection. Will be admitted to hospitalist service for further management Differential Diagnosis Differential Diagnosis: UTI, electrolyte derangement, dehydration Lab Data [facility] Lab Attestation statement: I personally reviewed the patient's lab results. 02/04/25 18:38 02/04/25 18:38 Labs: Lab Results 02/04/25 02/04/25 Range/Units 18:38 19:34 WBC 11.4 H (4.5-10.0) K/mm3 RBC 4.79 (4.2-5.4) M/mm3 Hgb 13.3 (12.0-15.0) g/dL Hct 39.4 (37.0-47.0) % MCV 82.3 (80-100) fl MCH 27.8 (26-34) pg MCHC 33.8 (32-36) g/dl RDW 12.4 (11.5-14.5) % Plt Count 288 (150-375) k/mm3 MPV 8.3 (7.4-10.4) fl Immature Gran % (Auto) 0.4 (0-0.5) % Neut % (Auto) 73.6 H (45.5-73.1) % Lymph % (Auto) 13.1 L (18.3-44.2) % [place] % (Auto) 10.8 H (2.6-8.5) % Eos % (Auto) 1.5 (0-4.4) % Baso % (Auto) 0.6 (0.2-1.2) % Lymph # (Auto) 1.49 (0.9-3.2) K/mm3 [place] # (Auto) 1.2 H (0.1-0.6) K/mm3 Eos # (Auto) 0.2 (0-0.3) K/mm3 Baso # (Auto) 0.1 (0.0-0.1) K/mm3 Abs Immat Gran (auto) 0.05 H (0.00-0.031) K/mm3 Absolute Neuts (auto) 8.4 H (1.3-6.7) K/mm3 Absolute Nucleated RBC 0.000 (0.0-0.012) K/mm3 Nucleated RBC % 0.0 (0.0-0.2) % Sodium 128 L (137-145) mmol/L Potassium 4.5 (3.4-5.0) mmol/L Chloride 95 L (98-107) mmol/L Carbon Dioxide 26 (22-30) mmol/L Anion Gap 7 (4-12) mmol/L BUN 19 H D (7-17) mg/dL Creatinine 0.93 (0.7-1.0) mg/dL Estim Creat Clear Calc 30 ml/min Estimated GFR 58 L (59 - ) Glucose 105 (65-110) mg/dL Calcium 9.5 (8.4-10.2) mg/dL Total Bilirubin 0.5 (0.2-1.3) mg/dL AST 31 (14-36) U/L ALT 18 (6-35) U/L Alkaline Phosphatase 64 (38-126) U/L Troponin I < 0.012 (0.000-0.034) ng/mL Total Protein 8.3 H (6.3-8.2) g/dL Albumin 4.5 (3.5-5.1) g/dL Lipase 85 (23-300) U/L Urine Color Yellow (Yellow) Urine Appearance Clear (Clear) Urine pH 7.0 (5.0-9.0) Ur Specific [place] 1.005 (1.001-1.035) Urine Protein Negative (Negative) mg/dL Urine Glucose (UA) Negative (Negative) mg/dL Urine Ketones Negative (Negative) mg/dL Ur Blood (Man) 2+ H (Negative) Urine Nitrate Negative (Negative) Urine Bilirubin Negative (Negative) Urine Urobilinogen 0.2 (<2.0) mg/dL Leukocyte Esterase Rfl 3+ H (Negative) AYSE/UL Urine RBC 11-20 H (0-2) /hpf Urine WBC 51-100 H (0-3) /hpf Ur Squamous Epith Cells None seen (Few) /hpf Urine Bacteria Rare /hpf Urine Casts 0-2 Imaging Data Radiologist's impression: CT abdomen and pelvis: Asymmetric left-sided urothelial enhancement. Correlate for ascending urinary tract infection. No nephrolithiasis or ureteral calculi. Chronic bilateral hydroureteronephrosis. Critical Care Time Critical Care Time Critical Care Time: No Discharge Plan Discharge Clinical Impression: Acute UTI, Hyponatremia Patient Disposition: Still a Patient Condition: Stable
--- NOTE | 2025-02-04 20:40 | PC.NURSE ---
pt c/o chest pressure, PA Sophia made aware, refer to MAR for medication administration. EKG done at bedside.
[2025-02-04] MEDS: ACETAMINOPHEN 500 MG TABLET 1000 MG PO (21:21)
[2025-02-04 22:27] VITALS: BP 153/66; PULSE 68; RESP 13; O2SAT 100
[2025-02-04] MEDS: levoFLOXacin 750 MG/D5W 150 ML 750 MG/150 ML BAG 100 MG IVPB (22:29)
--- NOTE | 2025-02-04 23:23 | ECG_ITS ---
Test Date: 2025-02-04 23:29:00 Measurements Intervals [place] Rate: 60 P: 35 ME: 168 QRS: -17 QRSD: 118 T: 32 QT: 448 QTc: 450 Interpretive Statements SINUS RHYTHM INTRAVENTRICULAR CONDUCTION DELAY LEFT VENTRICULAR HYPERTROPHY WITH ST-T CHANGE HIGH LATERAL INFARCT, AGE INDETERMINATE BASELINE ARTIFACT- I, II, III, AVR, AVL, AVF ABNORMAL ECG Compared to ECG 02/04/2025 20:29:24 RIGHT BUNDLE BRANCH BLOCK NO LONGER PRESENT Electronically Signed On 02-05-2025 06:54:22 ULTRASOUND SPEC by Brian Amos D.O.
[2025-02-04 23:30] VITALS: BP 145/67; PULSE 63; RESP 13; TEMP 36.8; O2SAT 97
--- NOTE | 2025-02-04 23:38 | PC.NURSE ---
Pt placed on bedpan x1 assist
[2025-02-04] MEDS: SODIUM CHLORIDE 0.9% IV 1,000 ML 75 ML IV CONT (23:53)
[2025-02-05] VITALS (8 sets, daily range): BP systolic 122–166; BP diastolic 46–60; PULSE 54–63; RESP 16–18; TEMP 35.8–36.5; O2SAT 97–100; BMI 24.5
[2025-02-05 00:02] LABS: Troponin I < 0.012 ng/mL (0.000-0.034)
--- NOTE | 2025-02-05 00:17 | WPCEDHO ---
ED Hand Off Checklist All vitals saved:yes IV Site documented:yes All med administrations documented:yes Triage Note Triage Note Patient presents with a weakness, 02/04/25 17:56 back pain, and lower abdominal pain for last week. also having decreased appetite. patient states she has been having decreased urine output. patient was seen at [facility] urgent care and was told to come to ER. Allergies Cephalosporins Allergy (Mild, Verified 12/04/24 22:11) Unknown cephalexin Allergy (Unknown, Verified 12/04/24 22:11) Unknown penicillin G Allergy (Unknown, Verified 12/04/24 22:11) UNknown amoxicillin (From Augmentin) Adverse Reaction (Intermediate, Verified 12/04/24 22:11) Nausea and Vomiting And diarrhea clavulanic acid (From Augmentin) Adverse Reaction (Intermediate, Verified 12/04/24 22:11) Nausea and Vomiting And diarrhea clarithromycin Adverse Reaction (Unknown, Verified 12/04/24 22:11) Unknown lisinopril Adverse Reaction (Unknown, Verified 12/04/24 22:11) Unknown pravastatin Adverse Reaction (Unknown, Verified 12/04/24 22:11) Unknown Family History (Last Reviewed 12/08/24 @ 22:07 by Alistair Carver DO) Father Acute myocardial infarction Diabetes mellitus Heart disease Other Breast cancer Sibling Carcinoma of colon Grandparent Cerebrovascular accident Other Depression Diabetes mellitus Mother Hypertension Other Asthma Active Medications including assessments/comments Sodium Chloride (Normal Saline Iv) 1,000 mls @ 75 mls/hr IV CONT .[id number] [facility] Last Admin: 02/04/25 23:53 Dose: 75 mls/hr Documented By: JOSEPG Infusion/Titration Document 02/04/25 23:53 EZG (Rec: 02/04/25 23:53 EZG [id number]) Intake IV Site Peripheral Access Left Antecubital Container Volume 1,000 Waste Amount 0 Dosing Infusion Rate 75 Cumulative Dose Not Applicable Increase/Decrease Started Elapsed Time Elapsed Time ( 0m minutes) Administered/Completed Medications Discontinued Medications Acetaminophen (Acetaminophen 500 Mg Tablet) 1,000 mg PO ONCE STA Stop: 02/04/25 20:59 Last Admin: 02/04/25 21:21 Dose: 1,000 mg Documented By: JAYLEN Sodium Chloride (Normal Saline Iv) 500 mls @ 999 mls/hr IV CONT .Q31M STA Stop: 02/04/25 19:40 Last Infusion: 02/04/25 21:25 Dose: Infused Documented By: Admin: 02/04/25 19:28 Dose: 999 mls/hr Documented By: JAYLEN Levofloxacin/Dextrose (Levaquin 750 Mg/D5w 150 Ml) 750 mg in 150 mls @ 100 mls/hr IVPB ONCE STA Stop: 02/04/25 23:36 Last Infusion: 02/05/25 00:14 Dose: Infused Documented By: Admin: 02/04/25 22:29 Dose: 100 mls/hr Documented By: JAYLEN Notes 02/04/25 23:38 Nurse Note by Barby Ram Pt placed on bedpan x1 assist Initialized on 02/04/25 23:38 - END OF NOTE 02/04/25 20:40 (created 02/04/25 21:38) Nurse Note by Barby Ram pt c/o chest pressure, PA Sophia made aware, refer to MAR for medication administration. EKG done at bedside. Initialized on 02/04/25 21:38 - END OF NOTE Interventions/Assessments IV / Saline Lock, Insert Start: 02/04/25 18:27 Freq: STAT Status: Active Protocol: Document 02/04/25 18:40 KLM (Rec: 02/04/25 18:40 KLM [id number]) IV Assessment Peripheral Access Left Antecubital IV Catheter Access Initiated IV Insertion Date 02/04/25 IV Insertion Time 18:40 Catheter Gauge 18 IV Insertion 1 Attempts IV Site Assessment WNL IV Care and WNL Maintenance PA: Genitourinary Assessment Start: 02/04/25 17:47 Freq: Status: Active Protocol: Document 02/04/25 18:40 KLM (Rec: 02/04/25 18:41 KLM [id number]) Assessment Genitourinary Burning,Flank Pain,Painful Symptoms Voiding Method Toilet Last Vital Signs Temperature 98.3 F 02/04/25 23:30 Pulse Rate 63 02/04/25 23:30 Respiratory Rate 13 02/04/25 23:30 Pulse Oximetry 97 02/04/25 23:30 Blood Pressure 145/67 H 02/04/25 23:30 Blood Pressure Mean 93 02/04/25 23:30 Blood Pressure Position Sitting 02/04/25 23:30 Oxygen Delivery Room Air 02/04/25 17:56 Weight 56.7 kg 02/04/25 17:56 Last Result - Abnormals Only WBC 11.4 K/mm3 (4.5-10.0) H 02/04/25 18:38 Neut % (Auto) 73.6 % (45.5-73.1) H 02/04/25 18:38 Lymph % (Auto) 13.1 % (18.3-44.2) L 02/04/25 18:38 Clare % (Auto) 10.8 % (2.6-8.5) H 02/04/25 18:38 Clare # (Auto) 1.2 K/mm3 (0.1-0.6) H 02/04/25 18:38 Abs Immat Gran (auto) 0.05 K/mm3 (0.00-0.031) H 02/04/25 18:38 Absolute Neuts (auto) 8.4 K/mm3 (1.3-6.7) H 02/04/25 18:38 Sodium 128 mmol/L (137-145) L 02/04/25 18:38 Chloride 95 mmol/L (98-107) L 02/04/25 18:38 BUN 19 mg/dL (7-17) H D 02/04/25 18:38 Estimated GFR 58 (59-) L 02/04/25 18:38 Total Protein 8.3 g/dL (6.3-8.2) H 02/04/25 18:38 Ur Blood (Man) 2+ (Negative) H 02/04/25 19:34 Leukocyte Esterase Rfl 3+ AYSE/UL (Negative) H 02/04/25 19:34 Urine RBC 11-20 /hpf (0-2) H 02/04/25 19:34 Urine WBC 51-100 /hpf (0-3) H 02/04/25 19:34 Most Recent Suicide Severity Rating Suicide Severity Rating NO RISK INDICATED 02/04/25 17:56
[2025-02-05 00:32] LABS: Troponin I 0.022 ng/mL (0.000-0.034)
[2025-02-05] MEDS: ONDANSETRON INJ 4 MG/2 ML VIAL IV PUSH (00:39)
--- NOTE | 2025-02-05 01:12 | ADMGEN ---
This patient, Rebeka Gomez, was admitted to 3 [facility] Surg Room 300-01. Patient/family oriented to hospital policies and general routines including ID bracelet, bed and alarms, visiting hours, pain management, procedures, bathroom and other care routines, personal items, smoking policy, room service/diet, and visiting hours. Information on how to activate the Rapid Response Team has been discussed. Patient/Family are encouraged to report perceived risks to care and to ask questions if they do not understand what they are told or what they should do.
[2025-02-05] MEDS: ACETAMINOPHEN 325 MG TABLET 650 MG PO ×3 (01:29→21:56)
[2025-02-05 07:06] LABS: Hematocrit 33.9 % (37.0-47.0); Hemoglobin 11.3 g/dL (12.0-15.0); Immature Granulocyte Percent A 0.3 % (0-0.5); Lymphocytes Absolute Auto 1.28 K/mm3 (0.9-3.2); Mean Corpuscular HGB Conc 33.3 g/dl (32-36); Mean Corpuscular Hemoglobin 27.5 pg (26-34); Mean Corpuscular Volume 82.5 fl (80-100); Nucleated Red Blood Cells Absolute Auto 0.000 K/mm3 (0.0-0.012); Nucleated Red Blood Cells Perc 0.0 % (0.0-0.2); Platelet Count Result 264 k/mm3 (150-375); Red Blood Count 4.11 M/mm3 (4.2-5.4); White Blood Count 9.3 K/mm3 (4.5-10.0)
[2025-02-05 07:34] LABS: Anion Gap 7 mmol/L (4-12); Blood Urea Nitrogen 15 mg/dL (7-17); Calcium 8.8 mg/dL (8.4-10.2); Carbon Dioxide 24 mmol/L (22-30); Chloride 99 mmol/L (98-107); Estimated CRCL calculation 31 ml/min; Estimated Glomerular Filt Rate 59; Glucose 96 mg/dL (65-110); Potassium 4.4 mmol/L (3.4-5.0); Sodium 130 mmol/L (137-145)
[2025-02-05] MEDS: LORazepam (*CRX) 0.5 MG TABLET PO ×3 (09:22→21:57)
[2025-02-05] MEDS: ESCITALOPRAM OXALATE 10 MG TABLET PO (09:22)
[2025-02-05] MEDS: LOSARTAN POTASSIUM 50 MG TABLET 100 MG PO (09:23)
[2025-02-05] MEDS: GABAPENTIN 300 MG CAPSULE PO ×2 (09:23→16:22)
--- NOTE | 2025-02-05 11:18 | PM.IMHP2 ---
H&P: HPI History of Present Illness Date/Time: 02/05/25 11:18 Chief Complaint: Painful urination, lower abdominal pain Narrative: 79 year old female with a past medical history fibromyalgia , bilateral carpal tunnel syndrome, and peripheral neuropathy presented to the ED 02/04 with complaints of lower abdominal pain and painful urination that has been going on since 01/28. She states she woke up this past Wednesday feeling super sick and called her son because she almost passed out. Her son called 911 and EMT brought the patient in for evaluation. Patient states she feels bad because of her bladder infection. She also states she thinks she was about to pass out because of her high blood pressure. She states at home her blood pressures run into the 170s, but she does not have a primary care provider. Patient states she always have some form of pain. She states mostly because of her neuropathy. She states she has been feeling bad overall and is very tearful. She rates her depression and anxiety 10/10, but denies suicidal thoughts. She states the last time she had to come to the hospital she had to use a perwick (based on her description) and it hurt her bad. Patient states she knows she does not drink enough water. She is very tearful and thinking about her kids. She states she has some brain fog. Patient denies using substances and alcohol. She reports she use to smoke in her 20s but had stop by age 19. Review of Systems Review of Systems: All systems reviewed & are unremarkable except as noted in HPI and below PMFSH Past Medical History Medical History Fibromyalgia Lower back pain Neck pain Bilateral carpal tunnel syndrome Peripheral neuropathy Surgical History Surgical History History of vaginal surgery Transvaginal taping 1998 History of hysterectomy with oophorectomy 1998 Family History Family History Father Acute myocardial infarction Diabetes mellitus Heart disease Other Breast cancer Sibling Carcinoma of colon Grandparent Cerebrovascular accident Other Depression Diabetes mellitus Mother Hypertension Other Asthma Social History Social History Smoking status: Never smoker Second hand tobacco smoke exposure: Yes Alcohol intake: never Substance use: never Substance use type: does not use Lack of Transportation: YES Lack of Food: Sometimes True Current Housing: I Have Housing Concerned About Future Housing: No Difficulty Paying Gas/Electric Bills: No Difficulty Paying for Meds: No Currently Unemployed: No Education: High School Diploma/GED Difficulty w/ Childcare or Family Care: No Living arrangements: with family Occupation/Education: retired Gender identity (if verbalized by the patient): Female Sexual Orientation (if Verbalized by the Patient): Straight or Heterosexual Spiritual care concerns: No Agree to blood products: Yes Meds Home Medications and Allergies Home Medications ?Medication ?Instructions ?Recorded ?Confirmed ?Type albuterol sulfate 90 mcg/actuation 2 inh inhalation Q4H PRN shortness 07/17/22 05/25/24 Rx aerosol inhaler of breath or wheezing #6.7 grams azelastine 0.05 % eye drops See Rx Instructions .Route 12/28/22 05/25/24 Rx .COMPLEX #18 mL THC/CBD cream topical 08/23/23 05/25/24 History gabapentin 300 mg capsule 300 mg PO BID #90 caps 05/25/24 02/05/25 Rx lorazepam 0.5 mg tablet 0.5 mg PO TID PRN anxiety #90 tabs 09/27/24 02/05/25 Rx losartan 50 mg tablet 100 mg (2 x 50 mg) PO DAILY #60 12/13/24 02/05/25 Rx tabs atenolol 50 mg tablet 100 mg (2 x 50 mg) PO DAILY #180 12/19/24 02/05/25 Rx tabs escitalopram oxalate 10 mg tablet 10 mg PO DAILY #30 tabs 01/31/25 02/05/25 Rx Allergies Allergy/AdvReac Type Severity Reaction Status Date / Time Cephalosporins Allergy Mild Unknown Verified 02/05/25 01:49 cephalexin Allergy Unknown Unknown Verified 02/05/25 01:49 penicillin G Allergy Unknown UNknown Verified 02/05/25 01:49 amoxicillin (From Augmentin) AdvReac Intermediate Nausea and Verified 02/05/25 01:49 Vomiting clavulanic acid (From AdvReac Intermediate Nausea and Verified 02/05/25 01:49 Augmentin) Vomiting clarithromycin AdvReac Unknown Unknown Verified 02/05/25 01:49 lisinopril AdvReac Unknown Unknown Verified 02/05/25 01:49 pravastatin AdvReac Unknown Unknown Verified 02/05/25 01:49 Vital Signs Vital Signs - 24 hr 02/04/25 17:56 02/04/25 19:22 02/04/25 22:27 Temperature 97.7 F 98.1 F Pulse Rate 65 65 68 Respiratory Rate 18 12 13 Blood Pressure 190/67 H 193/69 H 153/66 H Pulse Oximetry 100 100 100 Oxygen Delivery Room Air 02/04/25 23:30 02/05/25 01:00 02/05/25 01:33 Temperature 98.3 F 96.7 F L Pulse Rate 63 56 L Respiratory Rate 13 16 Blood Pressure 145/67 H 122/60 Pulse Oximetry 97 98 Oxygen Delivery Room Air 02/05/25 04:34 02/05/25 08:00 02/05/25 09:23 Temperature 96.5 F L 97.2 F L Pulse Rate 60 54 L 58 L Respiratory Rate 16 17 Blood Pressure 166/49 H 138/46 L Pulse Oximetry 98 100 Oxygen Delivery Exam Const: General: comfortable and no acute distress Eyes: General: appearance normal, both eyes and all related structures Sclera: sclerae normal Pupils: Equal, round and reactive pupils present EOM: EOMs intact bilaterally Neck: Neck: supple and no JVD Thyroid: thyroid normal Resp: Effort & Inspection: normal respiratory effort Auscultation: clear to auscultation bilaterally Cardio: Rate: regular rate Rhythm: regular rhythm GI: GI Palp: Yes Soft to palpation Auscultation: normal bowel sounds : General: Yes no CVA tenderness Skin: General skin exam: normal color Neuro: General: patient oriented x3 and Unable to assess gait Cognition (Neuro): normal cognition Speech: normal speech Motor exam (neuro): 5/5 motor strength present throughout Sensory Exam: normal sensation Psych: Affect: Sad affect present and Anxious affect present Thought content: No Suicidality present and No Hallucination(s) present Results Labs Labs: Short CBC 02/04/25 02/05/25 Range/Units 18:38 05:38 WBC 11.4 H 9.3 (4.5-10.0) K/mm3 Hgb 13.3 11.3 L (12.0-15.0) g/dL Hct 39.4 33.9 L (37.0-47.0) % Plt Count 288 264 (150-375) k/mm3 [facility] 02/04/25 02/05/25 18:38 05:38 Sodium 128 L 130 L Potassium 4.5 4.4 Chloride 95 L 99 Carbon Dioxide 26 24 BUN 19 H D 15 Creatinine 0.93 0.91 Glucose 105 96 Calcium 9.5 8.8 Cardiac Enzymes 02/04/25 02/04/25 Range/Units 18:38 23:56 Troponin I < 0.012 0.022 D (0.000-0.034) ng/mL Liver Function 02/04/25 Range/Units 18:38 Total Bilirubin 0.5 (0.2-1.3) mg/dL AST 31 (14-36) U/L ALT 18 (6-35) U/L Alkaline Phosphatase 64 (38-126) U/L Albumin 4.5 (3.5-5.1) g/dL Urine 02/04/25 Range/Units 19:34 Urine Color Yellow (Yellow) Urine Appearance Clear (Clear) Urine pH 7.0 (5.0-9.0) Ur Specific [place] 1.005 (1.001-1.035) Urine Protein Negative (Negative) mg/dL Urine Glucose (UA) Negative (Negative) mg/dL Assessment and Plan Assessment and plan (1) Acute UTI: Code(s): N39.0 - Urinary tract infection, site not specified Status: Acute Assessment and Plan: UA in the ED showed- 2+ blood, 3+ leukocyte, RBC 11-20, WBC 51-100 UC- pending Blood culture- pending Past urine culture resulted in enterococcus Continue maintenance fluids 75 mLs/hr Levofloxacin/Dextrose given 02/04, will continue q48 hr (2) Hyponatremia: Code(s): E87.1 - Hypo-osmolality and hyponatremia Status: Acute Assessment and Plan: Initially 125, currently 130 Will continue to monitor fluids and electrolytes (3) Peripheral neuropathy: Code(s): G62.9 - Polyneuropathy, unspecified Status: Acute Assessment and Plan: Gabapentin continued Will reassess accordingly (4) Major depressive disorder, recurrent, moderate: Code(s): F33.1 - Major depressive disorder, recurrent, moderate Status: Acute Assessment and Plan: Continue Lexapro 10 mg daily Continue Lorazepam PRN Considering consulting Psychiatry for possible worsening depression/anxiety (5) Hypertension: Code(s): I10 - Essential (primary) hypertension Status: Inactive Assessment and Plan: Chronic condition Continue atenolol
[2025-02-05] MEDS: SODIUM CHLORIDE 0.9% IV 1,000 ML 75 ML IV CONT (13:54)
[2025-02-06] MEDS: ACETAMINOPHEN 325 MG TABLET 650 MG PO ×2 (02:34→18:41)
[2025-02-06] MEDS: SODIUM CHLORIDE 0.9% IV 1,000 ML 75 ML IV CONT (03:30)
[2025-02-06 06:00] VITALS: BP 146/39; PULSE 51; RESP 16; TEMP 36.4; O2SAT 98
[2025-02-06 08:00] VITALS: BP 121/47; PULSE 53; RESP 16; TEMP 36.4; O2SAT 99
[2025-02-06] MEDS: GABAPENTIN 300 MG CAPSULE PO ×2 (09:41→17:46)
[2025-02-06] MEDS: LOSARTAN POTASSIUM 50 MG TABLET 100 MG PO (09:41)
--- NOTE | 2025-02-06 10:51 | PM.IMPN2 ---
Assessment and Plan Assessment and Plan (1) Acute UTI: Code(s): N39.0 - Urinary tract infection, site not specified Status: Acute Assessment and Plan: UA in the ED showed- 2+ blood, 3+ leukocyte, RBC 11-20, WBC 51-100 UC- pending Blood culture- pending Past urine culture resulted in enterococcus Stopped fluids since patient is eating and drinking Levofloxacin/Dextrose given 02/04, will continue q48 hr (2) Hyponatremia: Code(s): E87.1 - Hypo-osmolality and hyponatremia Status: Acute Assessment and Plan: Initially 125, currently 130 Will continue to monitor fluids and electrolytes (3) Peripheral neuropathy: Code(s): G62.9 - Polyneuropathy, unspecified Status: Acute Assessment and Plan: Gabapentin continued Will reassess accordingly (4) Major depressive disorder, recurrent, moderate: Code(s): F33.1 - Major depressive disorder, recurrent, moderate Status: Acute Assessment and Plan: Patient denies using Lexapro and refuses to take it- psychiatry consulted Continue Lorazepam PRN Considering consulting Psychiatry for possible worsening depression/anxiety (5) Hypertension: Code(s): I10 - Essential (primary) hypertension Status: Inactive Assessment and Plan: Chronic condition Continue atenolol Subjective Date/time seen: 02/06/25 10:51 Interval history: 79 year old female with a past medical history fibromyalgia , bilateral carpal tunnel syndrome, and peripheral neuropathy presented to the ED 02/04 with complaints of lower abdominal pain and painful urination that has been going on since 01/28. 02/06 Patient states she is feeling better and does not feel as sick. She states she does not normally get sleep at home, but she was able to sleep last night. She states she feel some pain off and on again in the bladder, back and lower stomach. Patient states she has some confusion, but it is getting better. She states she has a headache off and on again. She reports she feels very anxious, but denies ever taking Lexapro, despite it being refilled 01/31 from her pharmacy. She reports the Lexapro causes her stomach to hurt, neck pain, and back pain. She rates her depression and anxiety 5/10. She denies being SI. Patient daughter is in the room and states her mom has a lot of anxiety and that is why she does not sleep. Review of Systems Review of Systems: All systems reviewed & are unremarkable except as noted in HPI and below Exam Const: General: comfortable and no acute distress Eyes: General: appearance normal, both eyes and all related structures Sclera: sclerae normal Pupils: Equal, round and reactive pupils present EOM: EOMs intact bilaterally Neck: Neck: supple and no JVD Thyroid: thyroid normal Resp: Effort & Inspection: normal respiratory effort Auscultation: clear to auscultation bilaterally Cardio: Rate: regular rate Rhythm: regular rhythm GI: GI Palp: Yes Soft to palpation Auscultation: normal bowel sounds : General: Yes no CVA tenderness Skin: General skin exam: normal color Neuro: General: patient oriented x3 and gait normal Speech: normal speech Motor exam (neuro): 5/5 motor strength present throughout Psych: Mental Status: mental status grossly normal Affect: normal affect Objective Data Vital Signs Vital Signs: Vital Signs - 24 hr 02/05/25 12:00 02/05/25 13:54 02/05/25 14:00 Temperature 97.7 F 97.4 F L Pulse Rate 55 L 63 Respiratory Rate 16 18 Blood Pressure 153/56 H 162/49 H Pulse Oximetry 100 97 Oxygen Delivery Room Air 02/05/25 14:59 02/05/25 15:40 02/05/25 18:00 Temperature 97.1 F L Pulse Rate 58 L 58 L Respiratory Rate 16 Blood Pressure 150/51 H Pulse Oximetry 98 Oxygen Delivery Room Air 02/05/25 21:36 02/05/25 21:56 02/06/25 06:00 Temperature 97.0 F L 97.5 F L Pulse Rate 56 L 51 L Respiratory Rate 16 16 Blood Pressure 156/56 H 146/39 H Pulse Oximetry 98 98 Oxygen Delivery Room Air 02/06/25 08:00 Temperature 97.5 F L Pulse Rate 53 L Respiratory Rate 16 Blood Pressure 121/47 L Pulse Oximetry 99 Oxygen Delivery Intake/Output Intake/Output: Intake & Output 02/03/25 02/04/25 02/05/25 02/06/25 23:59 23:59 23:59 23:59 Intake Total 500 2018 1576.3 Output Total 450 300 Balance 500 1568 1276.3 Meds/Results Medications: Active Medications Generic Name Dose Route Start Last Admin Trade Name Freq PRN Reason Stop Dose Admin Acetaminophen 650 mg 02/04/25 23:11 02/06/25 02:34 Acetaminophen 325 Mg Tablet PO 650 mg Q4H PRN Administration Mild Pain (1-3) or Fever Atenolol 100 mg 02/05/25 09:00 02/05/25 18:00 Atenolol 50 Mg Tablet PO 100 mg DAILY MITCHELL Administration Escitalopram Oxalate 10 mg 02/05/25 09:00 02/06/25 09:43 Escitalopram Oxalate 10 Mg Tablet PO Not Given DAILY [facility] Gabapentin 300 mg 02/05/25 09:00 02/06/25 09:41 Gabapentin 300 Mg Capsule PO 300 mg BID MITCHELL Administration Levofloxacin/Dextrose 750 mg in 150 mls @ 100 mls/hr 02/06/25 22:00 Levaquin 750 Mg/D5w 150 Ml IVPB Q48H MITCHELL Lorazepam 0.5 mg 02/05/25 08:07 02/05/25 21:57 Lorazepam (*Crx) 0.5 Mg Tablet PO 0.5 mg TID PRN Administration Anxiety Losartan Potassium 100 mg 02/05/25 09:00 02/06/25 09:41 Losartan Potassium 50 Mg Tablet PO 100 mg DAILY MITCHELL Administration Radiology Results: ITS Impressions Abdomen/Pelvis CT 02/05/25 09:15 IMPRESSION: 1. Urothelial enhancement on the left renal collecting system and ureter concerning for ascending urinary tract infection. Correlate with urinalysis. 2. Small sliding-type hiatal hernia. Quality VTE Prophylaxis VTE prophylaxis: mechanical ordered
--- NOTE | 2025-02-06 13:06 | P.PSYCH_ITS ---
Assessment and Plan Assessment and plan (1) MURIEL (generalized anxiety disorder): Code(s): F41.1 - Generalized anxiety disorder Status: Acute Assessment and Plan: MURIEL-7 Score: * Feeling nervous, anxious, or on edge? 2 (More than half the days) * Not being able to stop or control worrying? 2 (More than half the days) * Worrying too much about different things? 2 (More than half the days) * Trouble relaxing? 2 (More than half the days) * Becoming easily annoyed or irritable? 1 (Several days) * Feeling afraid, as if something awful might happen? 1 (Several days) * Trouble relaxing? 2 (More than half the days) Total = 2 + 2 + 2 + 2 + 1 + 1 + 2 = 12 (Moderate to severe anxiety). PHQ-9 Score Example: Based on Jimmys reported symptoms of feeling down, tired, poor appetite, trouble sleeping, and low energy, her responses might look like this: * Little interest or pleasure in doing things? 2 (More than half the days) * Feeling down, depressed, or hopeless? 2 (More than half the days) * Trouble falling or staying asleep, or sleeping too much? 2 (More than half the days) * Feeling tired or having little energy? 3 (Nearly every day) * Poor appetite or overeating? 2 (More than half the days) * Feeling bad about yourself?or that you are a failure or have let yourself or your family down? 1 (Several days) * Trouble concentrating on things, such as reading the newspaper or watching television? 2 (More than half the days) * Moving or speaking so slowly that other people could have noticed? 0 (Not at all) * Thoughts that you would be better off , or of hurting yourself in some way? 0 (Not at all) Total = 2 + 2 + 2 + 3 + 2 + 1 + 2 + 0 + 0 = 14 (Moderate depression). Final Score Summary for Rebeka (Example): * MURIEL-7 Score: 12 (Moderate to Severe Anxiety) * PHQ-9 Score: 14 (Moderate Depression)see plan for MDD (2) Major depressive disorder, recurrent, moderate: Code(s): F33.1 - Major depressive disorder, recurrent, moderate Status: Acute Assessment and Plan: Psychiatric recommendations: 1.Pharmacologic Treatment: - discontinue Escitalopram - Start Fluoxetine 10 mg daily: Start low dose fluoxetine, as this was previously effective for her anxiety and depression. Close monitoring for any side effects is necessary, particularly gastrointestinal issues (which she experienced with escitalopram) and musculoskeletal complaints. If fluoxetine does not work or causes side effects, alternative SSRIs or SNRIs may be considered. (headache and GI side effects will improve with continued use). - Lorazepam 0.5 mg as needed, up to 3 times daily: Continue lorazepam for acute anxiety relief. However, given the potential for dependence and tolerance, the goal is to minimize frequent use. The patient should be educated on non- pharmacological anxiety management techniques to reduce reliance on lorazepam over time. - Gabapentin 300 mg BID: Continue gabapentin for pain management due to fibromyalgia/neuropathy. This may help alleviate some of her physical discomfort, which could, in turn, reduce her anxiety and depressive symptoms. 2. Non-Pharmacologic Treatment: - Cognitive Behavioral Therapy (CBT): Recommend starting CBT, which is effective in treating both anxiety and depression. Therapy will focus on managing anxiety through cognitive restructuring, relaxation techniques, and behavior modification. Since she has chronic pain from fibromyalgia, CBT can also address pain-related stress and improve coping strategies. - CBT for Insomnia (CBT-I): Address her sleep disturbances using CBT-I techniques. Chronic insomnia often exacerbates both anxiety and depression, and improving sleep hygiene through cognitive and behavioral interventions can be very effective. 3. Monitoring and Follow-up: - Follow-up in 4-6 weeks: Reassess Rebeka?s response to fluoxetine. Monitor for any side effects, especially gastrointestinal or musculoskeletal symptoms. If fluoxetine is ineffective or intolerable, consider transitioning to a different SSRI or SNRI (duloxetine). - Monitor lorazepam use: During follow-up, evaluate how often Rebeka is using lorazepam. If she is relying on it frequently, a discussion about alternative anxiety management strategies may be necessary. 4. Family and Social Support: - Family Involvement: Although her daughter was not present during this visit, it will be important to involve family members in Rebeka?s care. Support from her family, especially her daughter, can play a significant role in managing her anxiety and depression. Encourage Rebeka to have her daughter attend follow-up appointments if possible, as family support can enhance adherence to treatment plans. - Social Support: Encourage Rebeka to maintain social connections, even if it?s through phone calls or virtual communication. Social isolation can worsen both anxiety and depression, especially in older adults. 5. Medical Management of Comorbid Conditions: - Hyponatremia (Na+ 130): Ensure that the hyponatremia is being managed appropriately in the hospital. This could potentially affect her mood and cognitive function, so it is important to correct this imbalance before fully addressing her psychiatric symptoms. (SSRIs can worsen hyponatremia) - UTI: Continue appropriate antibiotics for the UTI. Addressing this infection is important as physical illness can exacerbate mental health symptoms. - Fibromyalgia and Chronic Pain: Continue monitoring and adjusting pain management as needed. Since pain can worsen both anxiety and depression, optimizing her pain management with gabapentin or other modalities (non- pharmacological) is crucial. HPI Data of Consult Date/Time: 02/06/25 13:06 Requesting Physician: Mesha Victoria DO Primary Care Provider: Efrain Castro MD Consult Narrative Narrative: Rebeka Jensen is an 79-year-old female with a significant past medical history, including fibromyalgia, anxiety, depression, hypertension, hyperlipidemia, neuropathy, asthma, and GERD. She is currently hospitalized for treatment of hyponatremia (Na+ 130) and a urinary tract infection (UTI). The patient reports an exacerbation of her anxiety and depression over the past few weeks. She describes feeling down and anxious most of the time, with difficulty sleeping due to her anxiety. Rebeka rates her anxiety and depression as moderate but does not provide specific numerical ratings. She denies any suicidal ideation (SI) or thoughts of self-harm. In the past, she had been prescribed escitalopram (Lexapro) 10 mg daily for her anxiety and depression, but she stopped taking it after experiencing significant gastrointestinal side effects, including stomach pain, and musculoskeletal pain in her neck and back. Despite these side effects, she reports that fluoxetine (Prozac) had been the most effective medication for her in the past, but she discontinued it when she felt better. Currently, Rebeka is on gabapentin 300 mg twice daily for pain management related to her fibromyalgia. She also uses lorazepam 0.5 mg as needed, up to three times a day, for acute anxiety, although she is mindful of not using it too frequently. She has a history of using clonazepam, but it was discontinued due to concerns of dependency. Rebeka is aware of the connection between her chronic pain from fibromyalgia and her mental health symptoms, and she acknowledges that her physical discomfort often exacerbates her anxiety and depressive feelings. In addition to her psychiatric symptoms, Rebeka is currently being treated for hyponatremia (Na+ 130) and a urinary tract infection (UTI). The hyponatremia is being managed in the hospital setting, and she is receiving appropriate antibiotics for the UTI. Review of Systems 2 Psychiatric: Psychiatric: Reports anxiety, Reports depression, Reports irritability and Reports anhedonia PMFSH Past Medical History Medical History Fibromyalgia Lower back pain Neck pain Bilateral carpal tunnel syndrome Peripheral neuropathy Surgical History Surgical History History of vaginal surgery Transvaginal taping 1998 History of hysterectomy with oophorectomy 1998 Family History Family History Father Acute myocardial infarction Diabetes mellitus Heart disease Other Breast cancer Sibling Carcinoma of colon Grandparent Cerebrovascular accident Other Depression Diabetes mellitus Mother Hypertension Other Asthma Social History Social History Smoking status: Never smoker Second hand tobacco smoke exposure: Yes Alcohol intake: never Substance use: never Substance use type: does not use Lack of Transportation: YES Lack of Food: Sometimes True Current Housing: I Have Housing Concerned About Future Housing: No Difficulty Paying Gas/Electric Bills: No Difficulty Paying for Meds: No Currently Unemployed: No Education: High School Diploma/GED Difficulty w/ Childcare or Family Care: No Living arrangements: with family Occupation/Education: retired Gender identity (if verbalized by the patient): Female Sexual Orientation (if Verbalized by the Patient): Straight or Heterosexual Spiritual care concerns: No Agree to blood products: Yes Meds Home Medications and Allergies Home Medications ?Medication ?Instructions ?Recorded ?Confirmed ?Type azelastine 0.05 % eye drops See Rx Instructions .Route 12/28/22 05/25/24 Rx .COMPLEX #18 mL THC/CBD cream topical 08/23/23 05/25/24 Hi story gabapentin 300 mg capsule 300 mg PO BID #90 caps 05/2502/05/25 Rx lorazepam 0.5 mg tablet 0.5 mg PO TID PRN anxiety #9 0 tabs 09/27/24 02/05/25 Rx losartan 50 mg tablet 100 mg (2 x 50 mg) PO DAILY #60 12/13/24 02/05/25 Rx tabs atenolol 50 mg tablet 100 mg (2 x 50 mg) PO DAILY #180 12/19/24 02/05/25 Rx tabs escitalopram oxalate 10 mg tablet 10 mg PO DAILY #30 t abs 01/31/25 02/05/25 Rx Allergies Allergy/AdvReac Type Severity Reaction Status Date / Time Cephalosporins Allergy Mild Unknown Verified 02/05/25 01:49 cephalexin Allergy Unknown Unknown Verified 02/05/25 01:49 penicillin G Allergy Unknown UNknown Verified 02/05/25 01:49 amoxicillin (From Augmentin) AdvReac Intermediate Nausea and Verified 02/05/25 01:49 Vomiting clavulanic acid (From AdvReac Intermediate Nausea and Verified 02/05/25 01:49 Augmentin) Vomiting clarithromycin AdvReac Unknown Unknown Verified 02/05/25 01:49 lisinopril AdvReac Unknown Unknown Verified 02/05/25 01:49 pravastatin AdvReac Unknown Unknown Verified 02/05/25 01:49 Vital Signs Vital Signs - 24 hr 02/05/25 13:54 02/05/25 14:00 02/05/25 14:59 Temperature 97.4 F L Pulse Rate 63 Respiratory Rate 18 Blood Pressure 162/49 H Pulse Oximetry 97 Oxygen Delivery Room Air Room Air 02/05/25 15:40 02/05/25 18:00 02/05/25 21:36 Temperature 97.1 F L 97.0 F L Pulse Rate 58 L 58 L 56 L Respiratory Rate 16 16 Blood Pressure 150/51 H 156/56 H Pulse Oximetry 98 98 Oxygen Delivery 02/05/25 21:56 02/06/25 06:00 02/06/25 08:00 Temperature 97.5 F L 97.5 F L Pulse Rate 51 L 53 L Respiratory Rate 16 16 Blood Pressure 146/39 H 121/47 L Pulse Oximetry 98 99 Oxygen Delivery Room Air Exam 2 Psych: Appearance: grossly normal and well kempt Mental Status: mental status grossly normal Speech and movement: Normal speech and movement present and Clear speech present Affect: normal affect Attitude: cooperative T hought process: Normal thought process present Thought content: Yes Normal thought content present Insight: Good insight present (Psych) Judgement: F air judgement present (Psych) Results Labs 02/05/25 05:38 02/05/25 05:38
[2025-02-06 13:57] VITALS: BP 131/46; PULSE 66; RESP 18; TEMP 36.1; O2SAT 99
[2025-02-06 17:46] VITALS: PULSE 74
[2025-02-06 19:55] VITALS: BP 153/58; PULSE 54; RESP 16; TEMP 36.6; O2SAT 99
[2025-02-06] MEDS: levoFLOXacin 750 MG/D5W 150 ML 750 MG/150 ML BAG 100 MG IVPB (21:36)
[2025-02-07] MEDS: ACETAMINOPHEN 325 MG TABLET 650 MG PO ×2 (00:11→15:36)
[2025-02-07] MEDS: LORazepam (*CRX) 0.5 MG TABLET PO ×3 (00:11→15:37)
--- NOTE | 2025-02-07 01:51 | PC.NURSE ---
Patient requested SCD's removed, cannot sleep while compressed on legs. Education provided about benefits of wearing Sequential Compression Device (SCD's) reduces risk for deep vein thrombosis, pulmonary embolism, and promote circulation to legs. Patient oriented x4, verbalized and stated understanding of risks and benefits but still refused. Patient stated SCD's can be put back on at a later time. Call light/ personal belongings with reach, bed lowest position and fall precaution bed alarm activated.
[2025-02-07] MEDS: FAMOTIDINE 20 MG/2 ML VIAL IV PUSH (02:24)
[2025-02-07 05:27] VITALS: BP 147/51; PULSE 57; RESP 16; TEMP 36.2; O2SAT 100
[2025-02-07 08:00] VITALS: BP 139/52; PULSE 49; RESP 14; TEMP 36.2; O2SAT 100
--- NOTE | 2025-02-07 08:49 | PM.IMPN2 ---
Assessment and Plan Assessment and Plan (1) Pyelonephritis: Code(s): N12 - Tubulo-interstitial nephritis, not specified as acute or chronic Status: Acute Assessment and Plan: UA in the ED showed- 2+ blood, 3+ leukocyte, RBC 11-20, WBC 51-100 UC- gram negative bacilli Blood culture- pending Abdomen/pelvis CT: Urothelial enhancement on the left renal collecting system and ureter concerning for ascending urinary tract infection. Past urine culture resulted in enterococcus IV levaquin started on 02/06 Continues to endorse pain and burning with urination as well as CVA tenderness. Continue IV Levaquin. Urine culture pending. (2) Hyponatremia: Code(s): E87.1 - Hypo-osmolality and hyponatremia Status: Acute Assessment and Plan: Initially 125, currently 130 Patient states she was previously on salt tabs which were discontinued due to uncontrolled blood pressure and fluid retention Also may be related to patients SSRI use for MDD and anxiety Will continue to monitor fluids and electrolytes (3) Major depressive disorder, recurrent, moderate: Code(s): F33.1 - Major depressive disorder, recurrent, moderate Status: Acute Assessment and Plan: MURIEL-7 Score: 12 (Moderate to Severe Anxiety) PHQ-9 Score: 14 (Moderate Depression)see plan for MDD Psych consulted discontinue escitalopram started on fluoxetine 10 mg daily continue lorazepam 0.5 mg as needed, up to 3 times daily Recommend starting CBT, which is effective in treating both anxiety and depression. CBT-I for her sleep disturbances Follow-up in 4-6 weeks (4) Peripheral neuropathy: Code(s): G62.9 - Polyneuropathy, unspecified Status: Acute Assessment and Plan: Gabapentin continued (5) Hypertension: Code(s): I10 - Essential (primary) hypertension Status: Inactive Assessment and Plan: Chronic Continue atenolol 100 mg daily and losartan 100 mg daily Blood pressures reviewed and remain stable, continue to monitor Medical Record Review I have reviewed the following patient records and this information was taken into consideration when formulating the assessment and plan.: previous labs Time Spent With Patient Time with patient: 25 - 35 minutes Subjective Date/time seen: 02/07/25 08:49 Interval history: 79 year old female with a past medical history fibromyalgia , bilateral carpal tunnel syndrome, and peripheral neuropathy presented to the hospital with complaints of lower abdominal pain and painful urination that has been going on since 01/28. Patient is pleasant sitting up comfortably in bed. She continues to endorse pain and burning with urination as well as left lower flank pain. She denies any blood in her urine. Patient has no other complaints denying chest pain, palpitations, shortness of breath, nausea/vomiting, abdominal pain. Review of Systems Review of Systems: All systems reviewed & are unremarkable except as noted in HPI and below Exam Narrative: AF HR 53 RR 14 SpO2 100 BP 140/73 General: female in no acute respiratory distress who is nontoxic appearing, lying semi recumbent in bed. HEENT: Normocephalic. Atraumatic. Extraocular movement intact. Sclera clear and anicteric. No facial asymmetry. Chest: Lungs are clear to auscultation bilaterally. No wheezes or crackles. CV: Heart was regular rate and rhythm. Abd: Abdomen was soft. Nontender. Nondistended. Postive bowel sounds. CVA tenderness, left. Ext: No clubbing, cyanosis, or edema. DP pulses bilaterally. Neuro: Patient is alert. Speech is clear. Objective Data Vital Signs Vital Signs: Vital Signs - 24 hr 02/06/25 13:57 02/06/25 17:46 02/06/25 19:55 Temperature 97.0 F L 97.8 F Pulse Rate 66 74 54 L Respiratory Rate 18 16 Blood Pressure 131/46 L 153/58 H Pulse Oximetry 99 99 Oxygen Delivery 02/06/25 21:37 02/07/25 05:27 02/07/25 08:00 Temperature 97.1 F L 97.2 F L Pulse Rate 57 L 49 L Respiratory Rate 16 14 Blood Pressure 147/51 H 139/52 L Pulse Oximetry 100 100 Oxygen Delivery Room Air Intake/Output Intake/Output: Intake & Output 02/04/25 02/05/25 02/06/25 02/07/25 23:59 23:59 23:59 23:59 Intake Total 500 2018 1966.3 Output Total 450 875 0 Balance 500 1568 1091.3 0 Meds/Results Medications: Active Medications Generic Name Dose Route Start Last Admin Trade Name Freq PRN Reason Stop Dose Admin Acetaminophen 650 mg 02/04/25 23:11 02/07/25 00:11 Acetaminophen 325 Mg Tablet PO 650 mg Q4H PRN Administration Mild Pain (1-3) or Fever Atenolol 100 mg 12/23/25 17:00 02/06/25 17:46 Atenolol 50 Mg Tablet PO 100 mg DAILY@1700 MITCHELL Administration Calcium Carbonate 200 mg 02/07/25 02:01 Calcium Carbonate (Tums) 500 Mg (200 Mg Elemental) PO Q6H PRN Indigestion Escitalopram Oxalate 10 mg 02/05/25 09:00 02/06/25 09:43 Escitalopram Oxalate 10 Mg Tablet PO Not Given DAILY MITCHELL Gabapentin 300 mg 02/05/25 09:00 02/06/25 17:46 Gabapentin 300 Mg Capsule PO 300 mg BID MITCHELL Administration Levofloxacin/Dextrose 750 mg in 150 mls @ 100 mls/hr 02/06/25 22:00 02/06/25 23:06 Levaquin 750 Mg/D5w 150 Ml IVPB Infused Q48H MITCHELL Infusion Lorazepam 0.5 mg 02/05/25 08:07 02/07/25 00:11 Lorazepam (*Crx) 0.5 Mg Tablet PO 0.5 mg TID PRN Administration Anxiety Losartan Potassium 100 mg 02/05/25 09:00 02/06/25 09:41 Losartan Potassium 50 Mg Tablet PO 100 mg DAILY MITCHELL Administration Radiology Results: ITS Impressions Abdomen/Pelvis CT 02/05/25 09:15 IMPRESSION: 1. Urothelial enhancement on the left renal collecting system and ureter concerning for ascending urinary tract infection. Correlate with urinalysis. 2. Small sliding-type hiatal hernia. Quality VTE Prophylaxis VTE prophylaxis: mechanical ordered
[2025-02-07] MEDS: GABAPENTIN 300 MG CAPSULE PO ×2 (09:05→17:05)
[2025-02-07] MEDS: LOSARTAN POTASSIUM 50 MG TABLET 100 MG PO (09:06)
[2025-02-07 14:00] VITALS: BP 140/73; PULSE 53; RESP 14; TEMP 36.7; O2SAT 100
[2025-02-07 16:00] VITALS: BP 149/56; PULSE 50; RESP 16; TEMP 36.4; O2SAT 100
[2025-02-07 17:05] VITALS: PULSE 53
[2025-02-07 21:19] VITALS: BP 137/48; PULSE 61; RESP 14; TEMP 36.6; O2SAT 100
[2025-02-08 06:00] VITALS: BP 132/59; PULSE 58; RESP 16; TEMP 37.1; O2SAT 97
[2025-02-08 08:00] VITALS: BP 145/52; PULSE 50; RESP 15; TEMP 36.9; O2SAT 98
[2025-02-08 08:02] LABS: Hematocrit 31.3 % (37.0-47.0); Hemoglobin 10.3 g/dL (12.0-15.0); Mean Corpuscular HGB Conc 32.9 g/dl (32-36); Mean Corpuscular Hemoglobin 27.8 pg (26-34); Mean Corpuscular Volume 84.4 fl (80-100); Platelet Count Result 246 k/mm3 (150-375); Red Blood Count 3.71 M/mm3 (4.2-5.4); White Blood Count 5.9 K/mm3 (4.5-10.0)
[2025-02-08 08:13] LABS: Alanine Aminotransferase 12 U/L (6-35); Albumin Level 3.4 g/dL (3.5-5.1); Alkaline Phosphatase 44 U/L (38-126); Anion Gap 6 mmol/L (4-12); Aspartate Amino Transferase 24 U/L (14-36); Bilirubin,Total 0.5 mg/dL (0.2-1.3); Blood Urea Nitrogen 22 mg/dL (7-17); Calcium 8.8 mg/dL (8.4-10.2); Carbon Dioxide 25 mmol/L (22-30); Chloride 102 mmol/L (98-107); Estimated CRCL calculation 28 ml/min; Estimated Glomerular Filt Rate 54; Glucose 91 mg/dL (65-110); Potassium 4.6 mmol/L (3.4-5.0); Sodium 133 mmol/L (137-145); Total Protein 6.5 g/dL (6.3-8.2)
[2025-02-08] MEDS: LOSARTAN POTASSIUM 50 MG TABLET 100 MG PO (09:30)
[2025-02-08] MEDS: LORazepam (*CRX) 0.5 MG TABLET PO (09:30)
[2025-02-08] MEDS: ESCITALOPRAM OXALATE 10 MG TABLET PO (09:30)
[2025-02-08] MEDS: GABAPENTIN 300 MG CAPSULE PO (09:30)
[2025-02-08] MEDS: ACETAMINOPHEN 325 MG TABLET 650 MG PO (09:36)
--- NOTE | 2025-02-08 13:11 | P.DS_ITS ---
DS: Admitting Diagnosis Discharge Date 02/08/2025 Admitting Diagnosis pyelonephritis hyponatremia mdd peripheral neuropathy htn DS: Discharge Diagnosis Discharge Diagnosis (1) Pyelonephritis: Code(s): N12 - Tubulo-interstitial nephritis, not specified as acute or chronic Status: Acute (2) Hyponatremia: Code(s): E87.1 - Hypo-osmolality and hyponatremia Status: Acute (3) Major depressive disorder, recurrent, moderate: Code(s): F33.1 - Major depressive disorder, recurrent, moderate Status: Acute (4) Peripheral neuropathy: Code(s): G62.9 - Polyneuropathy, unspecified Status: Acute (5) Hypertension: Code(s): I10 - Essential (primary) hypertension Status: Inactive DS: Summary Hospital Course Reason for hospitalization: pyelonephritis hyponatremia mdd peripheral neuropathy htn Hospital Course: 79-year-old female with a history of fibromyalgia, peripheral neuropathy, hypertension, anxiety, and depression who presented on 02/04/25 with several days of dysuria and lower abdominal pain. Initial evaluation demonstrated leukocytosis, hyponatremia, and urinalysis consistent with urinary tract infection. CT abdomen/pelvis revealed urothelial enhancement of the left renal collecting system and ureter, concerning for ascending infection. She was admitted and treated with IV fluids and IV levofloxacin due to a history of penicillin and cephalosporin allergy, with blood and urine cultures obtained. Leukocytosis resolved, renal function remained stable, and sodium gradually improved with conservative management and monitoring. Urine culture grew ecoli with intermediate response to fluoroquinolones; blood cultures remained without growth during hospitalization. Clinically, she remained afebrile and hemodynamically stable, with gradual improvement in abdominal and flank pain, though mild dysuria persisted. Patient was transitioned to oral antibiotics at time of discharge to complete the antibiotic course. Psychiatry was consulted for worsening anxiety and depression; escitalopram was discontinued due to side effects and hyponatremia risk, and fluoxetine 10 mg daily was initiated with continuation of PRN lorazepam and outpatient therapy recommendations. Patient to follow up with psychiatry in the outpatient setting in 4 weeks. By discharge, the patient was tolerating oral intake, pain was improved, vital signs were stable. Patient had no complaints denying chest pain, palpitations, shortness of breath, nausea/vomiting, abdominal pain and dizziness/lightheadedness with ambulation. Patient discharged home with family in a stable condition. She is to follow up with her PCP in 1 week and the psychiatrist as scheduled. Status at Discharge Functional status at discharge: uses cane/walker Time Spent with Patient Time attestation: Total time spent providing and/or coordinating discharge services: Time spent: Greater than 30 minutes Exam Narrative: AF HR 50 RR 15 SPO2 98 BP 145/52 General: female in no acute respiratory distress who is nontoxic appearing, sitting up in bed. HEENT: Normocephalic. Atraumatic. Extraocular movement intact. Sclera clear and anicteric. No facial asymmetry. Chest: Lungs are clear to auscultation bilaterally. No wheezes or crackles. CV: Heart was regular rate and rhythm. Abd: Abdomen was soft. Nontender. Nondistended. Positive bowel sounds. CVA tenderness, left. Ext: No clubbing, cyanosis, or edema. DP pulses bilaterally. Neuro: Patient is alert and oriented x4. Speech is clear. DS: Data Data Completed and Pending Completed studies during hospitalization: abdomen/pelvis ct Labs on day of discharge: Labs from last 24 hours 02/08/25 07:34 WBC 5.9 RBC 3.71 L Hgb 10.3 L Hct 31.3 L MCV 84.4 MCH 27.8 MCHC 32.9 RDW 12.4 Plt Count 246 MPV 8.7 Sodium 133 L Potassium 4.6 Chloride 102 Carbon Dioxide 25 Anion Gap 6 BUN 22 H Creatinine 0.99 Estim Creat Clear Calc 28 Estimated GFR 54 L Glucose 91 Calcium 8.8 Total Bilirubin 0.5 AST 24 ALT 12 Alkaline Phosphatase 44 Total Protein 6.5 Albumin 3.4 L Preliminary micro results at discharge 02/04/25 21:15 Blood Culture - Preliminary Blood 02/04/25 21:15 Blood Culture - Preliminary Blood Discharge Plan Discharge Attending physician on discharge: Lincoln Davalos Consulting providers: Jeffery Madrid; Brianna Lopez Discharging Clinician: Brianna Lopez Anticipated Discharge Date/Time: 02/08/25 12:04 Patient Disposition: Home Activity: as tolerated Diet: as tolerated and heart healthy Discharge Instructions: Discharge disposition: During admission diagnosed with a urinary tract infection with pyelonephritis (kidney infection) Take all medications as prescribed even if feeling better Bactrim twice a day for 5 days, complete this antibiotic course even if feeling better Attached is information on this medication Eat well balanced meals and stay hydrated Keep active to remain strong Avoid use of diapers or pads Good susy Care every 2 hours Trend urine output Obtain a repeat blood draw in 3 days to reassess potassium level given cocurrent antibiotic and antihypertensive medication. Results being sent to Dr. Rosa office for follow up. During admission evaluated by psychiatry for Major Depressive Disorder, recurrent, moderate and Generalized Anxiety (moderate?severe) Medications * Stop escitalopram (Lexapro). * Start fluoxetine (Prozac) 10 mg once daily. * Lorazepam (Ativan) 0.5 mg as needed, up to 3 times daily. Use only for acute anxiety. Try to limit frequent use due to risk of dependence. * Gabapentin 300 mg twice daily. Continue for fibromyalgia/nerve pain, which may also help reduce anxiety related to chronic pain. Therapy and Lifestyle Treatment * Cognitive Behavioral Therapy (CBT): Strongly recommended to help manage anxiety, depression, and stress related to chronic pain. * CBT for Insomnia (CBT?I): Recommended to improve sleep, which can significantly affect mood and anxiety. * Nonmedication anxiety strategies: Practice relaxation breathing, gentle stretching, pacing activities, and grounding techniques to reduce reliance on lorazepam. * Stay socially connected: Maintain contact with family or friends by phone or video when possible. Follow Up and Monitoring * Psychiatry follow?up in 4?6 weeks?to assess response to fluoxetine and overall symptom improvement. * Monitor how often you use lorazepam and discuss alternatives if you need it frequently. * Seek medical attention sooner for severe side effects, worsening mood, increased anxiety, confusion, or thoughts of self harm If you experience worsening depression, severe anxiety, confusion, or thoughts of harming yourself, seek emergency care immediately or call [phone] (Suicide & Crisis Lifeline). Monitor blood pressures Take caution while standing, rising, or moving Change positions slowly taking a break between each position change If you standing feel dizzy sit back down and take a break Encouraged to continue with yearly vaccinations Return to the emergency department if he developed sudden shortness of breath, chest pain, nausea, vomiting, upset stomach or intractable diarrhea Return to the emergency department if you develop fever greater than 100.5 Follow-up with the primary care physician within 1-2 weeks Thank you for choosing [facility] for your healthcare needs Patient Instructions: Antibiotic Form, Sulfamethoxazole/Trimethoprim (By mouth), Fluoxetine (By mouth), Lorazepam (By mouth), Depression (DC), Kidney Infection (DC), Anxiety (GEN) Patient Language: Polish Stand Alone Forms: General Discharge Information Follow-up/Referrals: Jeffery Madrid MD [Physician, Psychiatry] - 4 Weeks Efrain Castro MD [Primary Care Provider, Family Practice] - 1 Week Discharge Medications: New fluoxetine [Prozac] 10 mg capsule 10 mg PO DAILY Qty: 30 0RF sulfamethoxazole-trimethoprim [Bactrim DS] 800-160 mg tablet 1 tablet PO Q12H Qty: 10 0RF Continued gabapentin 300 mg capsule 300 mg PO BID Qty: 90 5RF THC/CBD cream topical losartan 50 mg tablet 100 mg PO DAILY Qty: 60 5RF azelastine 0.05 % drops See Rx Instructions .ROUTE .COMPLEX Qty: 18 0RF Dose Instruction: INSTILL 1 DROP IN EACH EYE TWICE DAILY Rx Instructions: INSTILL 1 DROP IN EACH EYE TWICE DAILY lorazepam 0.5 mg tablet 0.5 mg PO TID PRN (Reason: anxiety) Qty: 90 4RF atenolol 50 mg tablet 100 mg PO DAILY Qty: 180 1RF Discontinued escitalopram oxalate 10 mg tablet 10 mg PO DAILY Qty: 30 5RF Other Ambulatory Orders: Basic Metabolic Panel (Routine) Timeframe: 3 Days Location: Determined by Patient Ordered By: Brianna Lopez Date of admission: 02/06/25 14:31 Primary Care Provider: Efrain Castro Admitting Provider: Mesha Victoria Attending physician on admission: Mesha Victoria Condition: Stable Hospitalist MIPS Heart Failure (Exclusion) Patient has history of Heart Transplant or Left Ventricular Assistive Device?: No IF YES, STOP HERE Heart Failure (Qualifier) Patient has current or prior documentation of LVEF less than or equal to 40%, or mod/servere depressed LVSF?: No IF NO, STOP HERE
== END 2025-02-08 14:00 | disposition home or self-care (01) | DRG 690 ==
LOC: ANHED 19:06 → ANH3MEDSUR 23:51
PROVIDERS: Student in an Organized Health Care Education/Training Program; Admitting Provider Internal Medicine; Emergency Provider Physician Assistant; PCP Family Medicine Adolescent Medicine; Visit Provider Internal Medicine
DX: N39.0 Urinary tract infection, site not specified (principal); E87.1 Hypo-osmolality and hyponatremia; F33.1 Major depressive disorder, recurrent, moderate; B96.20 Unspecified Escherichia coli [E. coli] as the cause of diseases classified elsewhere; F41.9 Anxiety disorder, unspecified; G62.9 Polyneuropathy, unspecified; I10 Essential (primary) hypertension; Z88.0 Allergy status to penicillin
CPT/HCPCS: 36415; 74177; 80048; 80053; 81001; 83690; 84484; 85025; 85027; 87040; 87086; 87186; 93005; 96361; 96365; 96366; 96375; 97110; 97162; 97166; 97530; 97535; 99285; A9270; G0378; J1956; J2405; J7030; J7040; Q9967

== ENCOUNTER 2025-02-13 17:07 | Outpatient (CLI) | payer MEDICARE, SELFPAY ==
[2025-02-13 17:49] LABS: Anion Gap 8 mmol/L (4-12); Blood Urea Nitrogen 21 mg/dL (7-17); Calcium 9.1 mg/dL (8.4-10.2); Carbon Dioxide 23 mmol/L (22-30); Chloride 91 mmol/L (98-107); Estimated Glomerular Filt Rate 35; Glucose 109 mg/dL (65-110); Potassium 5.3 mmol/L (3.4-5.0); Sodium 122 mmol/L (137-145)
== END 2025-02-13 17:08 | disposition home or self-care (01) ==
PROVIDERS: PCP Family Medicine Adolescent Medicine; Visit Provider Student in an Organized Health Care Education/Training Program
DX: N39.0 Urinary tract infection, site not specified (principal)
CPT/HCPCS: 36415; 80048